=== PATIENT | male | born 1955 | race Caucasian/White ===

== ENCOUNTER 2017-05-02 15:03 | Day surgery (SDC) | payer BC ==
[~2017-05-02] VITALS: Ht 185.4 cm; Wt 100.8 kg
[2017-05-02] VITALS (10 sets, daily range): BP systolic 107–146; BP diastolic 59–84
[~2017-05-02 15:03] MED LIST changes: -ASPI-983 PO; -DAPA10TA PO; -GLYB5TAB6 PO; +HEParin (CATH LAB) 2,000 ML IV ONE; -LISI-552 PO; -METF850T2 PO; -METO-270 PO; -MULT-1029 PO; +NS IV 1000 ML 1,000 ML ONE; -OMEP40CA36 PO; -SIMV40TA4 PO
[2017-05-02] MEDS ORDERED: NS IV 1000 ML 1,000 ML IV SCH (15:30)
[2017-05-02] MEDS ORDERED: MIDAZOLAM 5 MG/5 ML (VERSED) VIAL ONE (15:35)
[2017-05-02] MEDS ORDERED: fentaNYL INJECTION 100 MCG/2 ML AMP ONE (15:35)
[2017-05-02 15:39] LABS: MEAN PLATELET VOLUME 10.7 FL (7.4-10.4); RED BLOOD COUNT 5.24 10^6/uL (4.35-5.85); RED CELL DISTRIBUTION WIDTH 12.8 % (10.0-14.5)
[2017-05-02 15:53] LABS: INR 0.9 (0.8-1.4); PROTHROMBIN TIME PATIENT 12.7 SEC (12.2-14.7)
--- NOTE | 2017-05-02 15:55 | Diagnostic Imaging Report ---
Portable upright radiograph of the chest. INDICATION: Chest pain. FINDINGS: The lungs are clear. The heart size is normal. No effusion or pneumothorax. The mediastinum and flaco appear unremarkable. IMPRESSION: Unremarkable exam. Dictated by: Dictated on workstation # [id number]
[2017-05-02 15:59] LABS: ALANINE AMINOTRANSFERASE 15 U/L (0-55); ALBUMIN 4.5 GM/DL (3.2-4.5); ANION GAP 10 MMOL/L (5-14); ASPARTATE AMINO TRANSFERASE 17 U/L (5-34); BILIRUBIN,TOTAL 0.8 MG/DL (0.1-1.0); BLOOD UREA NITROGEN 18 MG/DL (7-18); BUN/CREATININE RATIO 20; CALCIUM 9.7 MG/DL (8.5-10.1); CARBON DIOXIDE 25 MMOL/L (21-32); CHLORIDE 104 MMOL/L (98-107); CHOLESTEROL 173 MG/DL (< 200); CREATININE SERUM 0.89 MG/DL (0.60-1.30); DIRECT LDL 103 MG/DL (1-129); GFR ESTIMATED > 60; GLUCOSE 86 MG/DL (70-105); POTASSIUM 3.9 MMOL/L (3.6-5.0); SODIUM 139 MMOL/L (135-145); TOTAL PROTEIN 7.5 GM/DL (6.4-8.2); TRIGLYCERIDES 87 MG/DL (<150); VLDL CHOLESTEROL 17 MG/DL (5-40)
[2017-05-02] MEDS ORDERED: GLYB5TAB6 PO (16:08)
[2017-05-02] MEDS ORDERED: DAPA10TA PO (16:08)
[2017-05-02] MEDS ORDERED: LISI-552 PO (16:08)
[2017-05-02] MEDS ORDERED: METF850T2 PO (16:08)
[2017-05-02] MEDS ORDERED: ASPI-983 PO (16:08)
[2017-05-02] MEDS ORDERED: SIMV40TA4 PO (16:08)
[2017-05-02] MEDS ORDERED: MULT-1029 PO (16:08)
[2017-05-02] MEDS ORDERED: OMEP40CA36 PO (16:08)
[2017-05-02] MEDS ORDERED: INFLUENZA TRIvalent 2017-2018 0.5 ML/45 MCG SYR IM ONE (16:15)
[2017-05-02] MEDS ORDERED: meTOprolol 5 MG/5 ML (LOPRESSOR) VIAL ONE (16:27)
--- NOTE | 2017-05-02 16:32 | Cardiac Procedure Note-CS/ASA ---
Pre-Procedure Note Pre-Op Procedure Note H&P Reviewed The H&P was reviewed, patient examined and no changes noted. Date H&P Reviewed: May 02, 2017 Time H&P Reviewed: 16:00 Conscious Sedation Pre-Proced Time Reviewed: 16:00 ASA Class: 3 Airway Mallampati Classification: ([place] appropriate class) I. II. III, IV Lungs Heart ASA score ASA 1: a normal healthy patient ASA 2: a patient with a mild systemic disease (mid diabetes, controlled hypertension, obesity x ASA 3: a patient with a severe systemic disease that limits activity (angina , COPD, prior Myocardial infarction) ASA 4: a patient with an incapacitating disease that is a constant threat to life (CHF, renal failure) ASA 5: a moribund patient not expected to survive 24 hrs. (ruptured aneurysm) ASA 6: a declared brain patient whose organs are being harvested. For emergent operations, add the letter E after the classification Grade 3 Sedation Plan: Analgesia, Amnesia, Plan communicated to team members, Discussed options with patient/fam, Discussed risks with patient/fam Note The patient is an appropriate candidate to undergo the planned procedure, sedation, and anesthesia. The patient immediately re-assessed prior to indication. LORENZA MAHONEY MD May 02, 2017 16:32
--- NOTE | 2017-05-02 16:37 | Cardiac Cath Report ---
Cardiac Cath Report Physician (s)/Insurance Advisor (s) Physician LORENZA MAHONEY MD Pre-Procedure Diagnosis Pre-Procedure Diagnosis: nonsustained ventricular tachycardia Post-Procedure Note Procedure Start Date: May 02, 2017 Procedure Start Time: 16:00 Name of Procedure: left heart catheterization Findings/Procedure Note PROCEDURE NOTE: After explaining the procedure to the patient, all pros and cons were explained, all questions were answered. The patient signed the consent and then she was placed on the cardiac catheterization laboratory. The patient was placed on the cardiac catheterization laboratory. Groin was prepped SL fashion local anesthesia was used. Sheath placed in the artery. Gina right and left catheter were used to access the coronary system. Pigtail was used to access the left ventricular cavity. Left ventriculogram was not done, pressure was measured Aortic arch angiogram was not done At the end of the procedure the sheath was removed. Closure device was used FINDINGS: Hemodynamics LV 108/12, end-diastolic pressure of 12 Aorta 108/65 mean of 79 ANATOMY: Left Main is free of obstructive disease Left Anterior Descending is small, tortuous, no obstructive disease Left Circumflex is free of obstructive disease Right Coronory Artery dominant artery, no obstructive disease LV Gram was not done, pressure was measured CONCLUSION: 1. Mild coronary artery disease nonobstructive disease 2. Normal left ventricular end-diastolic pressure DISCUSSION AND RECOMMENDATION: I will start him on beta blockers and evaluate his tolerance and response Anesthesia Type: Conscious Sedation Estimated blood loss (mL): 10 ml Contrast Amount: 40 ml Total Radiation Dose: 423 mGy Post-Procedure Diagnosis Post-operative diagnosis: Coronary artery disease Ventricular tachycardia Hypertension Hyperlipidemia LORENZA MAHONEY MD May 02, 2017 16:37
[2017-05-02] MEDS ORDERED: PATIENT MAY USE OWN MEDS, ALL PO SCH (16:45)
[2017-05-02] MEDS: NS IV 1000 ML 1,000 ML IV SCH (18:37)
[2017-05-02] MEDS ORDERED: SIMvastatin 40 MG (ZOCOR) TAB PO SCH (21:00)
[2017-05-02] MEDS ORDERED: ASPIRIN E.C. 81 MG (ECOTRIN) TAB PO SCH (21:00)
[2017-05-03 02:00] VITALS: BP 119/70
[2017-05-03] MEDS: NS IV 1000 ML 1,000 ML IV SCH (02:37)
--- OUTSIDE RECORDS SUMMARY | 2017-05-03 04:50 | XMS REPORT ---
Author Author Esperanza Shirley [facility] Address [address] [place], [place] [id number] Care Team Providers Care Chef Concierge Name Role Phone Esperanza Shirley PCP Unavailable Allergies and Adverse Reactions Name Reaction Notes NO KNOWN DRUG ALLERGIES Plan of Treatment Planned Activity Comments Planned Date Planned Time Plan/Goal LIPID PANEL 01/21/2013 12:00 AM GLYCOSYLATED HEMOGLOBIN TEST 01/21/2013 12:00 AM COMPLETE CBC W/AUTO DIFF WBC 12/18/2012 12:00 AM COMPREHEN METABOLIC PANEL 12/18/2012 12:00 AM MICROALBUMIN SEMIQUANT 12/18/2012 12:00 AM LIPID PANEL 07/03/2013 12:00 AM MICROALBUMIN SEMIQUANT 07/03/2013 12:00 AM COMPREHEN METABOLIC PANEL 07/03/2013 12:00 AM GLYCOSYLATED HEMOGLOBIN TEST 07/03/2013 12:00 AM COMPREHEN METABOLIC PANEL 01/22/2014 12:00 AM LIPID PANEL 01/22/2014 12:00 AM GLYCOSYLATED HEMOGLOBIN TEST 01/22/2014 12:00 AM MICROALBUMIN SEMIQUANT 01/22/2014 12:00 AM Medications Active Name Start Date Estimated Completion Date SIG Comments Aspirin Low Dose 81 mg oral tablet,delayed release (DR/EC) take 1 tablet (81 mg) by oral route once daily omeprazole 40 mg oral capsule,delayed release(DR/EC) 08/20/2013 TAKE ONE CAPSULE BY MOUTH EVERY DAY BEFORE A MEAL lisinopril 20 mg oral tablet 09/16/2013 TAKE TWO TABLETS BY MOUTH EVERY DAY simvastatin 20 mg oral tablet 01/13/2014 TAKE ONE TABLET BY MOUTH EVERY DAY IN THE EVENING omeprazole 40 mg oral capsule,delayed release(DR/EC) 02/25/2014 TAKE ONE CAPSULE BY MOUTH EVERY DAY BEFORE A MEAL metformin 850 mg oral tablet 04/07/2014 TAKE ONE TABLET BY MOUTH TWICE DAILY simvastatin 40 mg oral tablet 06/26/2014 TAKE ONE TABLET BY MOUTH EVERY DAY IN THE EVENING lisinopril 20 mg oral tablet 06/30/2014 TAKE TWO TABLETS BY MOUTH EVERY DAY metformin 850 mg oral tablet 07/07/2014 TAKE ONE TABLET BY MOUTH TWICE DAILY glyburide 5 mg oral tablet 07/28/2014 TAKE ONE TABLET BY MOUTH TWICE DAILY omeprazole 40 mg oral capsule,delayed release(DR/EC) 08/26/2014 TAKE ONE CAPSULE BY MOUTH EVERY DAY BEFORE A MEAL lisinopril 20 mg oral tablet 09/22/2014 TAKE TWO TABLETS BY MOUTH EVERY DAY Farxiga 10 mg oral tablet 09/30/2014 09/25/2015 take 1 tablet (10 mg) by oral route once daily in the morning for 30 days simvastatin 40 mg oral tablet 10/07/2014 TAKE ONE TABLET BY MOUTH ONCE DAILY IN THE EVENING omeprazole 40 mg oral capsule,delayed release(DR/EC) 02/23/2015 TAKE ONE CAPSULE BY MOUTH ONCE DAILY BEFORE A MEAL Name Start Date Expiration Date SIG Comments lisinopril 20 mg oral tablet 09/05/2012 12/04/2012 TAKE TWO TABLETS BY MOUTH EVERY DAY metformin 850 mg oral tablet 01/01/2013 12/27/2013 TAKE ONE TABLET BY MOUTH TWICE DAILY simvastatin 20 mg oral tablet 01/01/2013 12/27/2013 TAKE ONE TABLET BY MOUTH EVERY DAY IN THE EVENING omeprazole 40 mg oral capsule,delayed release(DR/EC) 01/01/2013 06/30/2013 take 1 capsule (40 mg) by oral route once daily before a meal for 30 days glyburide 5 mg oral tablet 07/25/2013 07/20/2014 TAKE ONE TABLET BY MOUTH TWICE DAILY Discontinued Name Start Date Discontinued Date SIG Comments simvastatin 40 mg oral tablet 06/10/2010 06/10/2010 take 1 tablet (40 mg) by oral route once daily in the evening History of muscle aches lisinopril 40 mg oral tablet 06/10/2010 07/24/2012 1QD - TAKE ONE TABLET BY MOUTH EVERY DAY TAKING 2 20MG TABS Crestor 40 mg oral tablet 06/10/2010 07/02/2010 take 0.5 tablet by oral route daily Muscle aches Lotrisone 1-0.05 % topical lotion 06/02/2011 07/24/2012 apply to the affected area(s) by topical route 2 times per day in the morning and evening Metrogel 1 % topical gel 10/12/2011 07/24/2012 apply to the affected area(s) by topical route once daily ; rub in gently and completely Invokana 300 mg oral tablet 06/25/2014 08/12/2014 take 1 tablet (300 mg) by oral route once daily before the first meal of the day Anusol-HC 25 mg rectal suppository 11/25/2014 04/21/2015 insert 1 suppository (25 mg) by rectal route 2 times per day as needed Problem List Description Status Onset Diabetes Mellitus, Type II Active Hypertension Active Hyperlipidemia Active 06/02/2011 Hand Eczema Active 06/02/2011 Vital Signs Date Time BP-Sys(mm[Hg] BP-Jolene(mm[Hg]) HR(bpm) RR(rpm) Temp WT HT HC BMI BSA BMI Percentile O2 Sat(%) 04/21/2015 8:21:00 AM 118 mmHg 62 mmHg 63 bpm 20 rpm 97.2 F 229 lbs 73 in 30.21 kg/m2 2.31 m2 99 % 11/05/2014 3:23:00 PM 110 mmHg 60 mmHg 70 bpm 16 rpm 96 F 233 lbs 73 in 30.7403 kg/m 2.3331 m 97 % 09/30/2014 3:48:00 PM 142 mmHg 72 mmHg 68 bpm 16 rpm 97.1 F 233 lbs 73 in 30.74 kg/m2 2.33 m2 97 % 06/25/2014 3:42:00 PM 130 mmHg 67 mmHg 68 bpm 18 rpm 97.1 F 248.5 lbs 73 in 32.7853 kg/m 2.4095 m 99 % 07/25/2013 8:17:00 AM 134 mmHg 78 mmHg 62 bpm 18 rpm 97 F 252 lbs 73 in 33.25 kg/m2 2.43 m2 99 % 04/30/2013 8:17:00 AM 138 mmHg 80 mmHg 58 bpm 16 rpm 98.9 F 252 lbs 73 in 33.2471 kg/m 2.4264 m 99 % 01/01/2013 8:03:00 AM 138 mmHg 70 mmHg 76 bpm 18 rpm 98.4 F 255 lbs 73 in 33.64 kg/m2 2.44 m2 07/24/2012 8:13:00 AM 136 mmHg 70 mmHg 62 bpm 18 rpm 98 F 254 lbs 73 in 33.5109 kg/m 2.436 m 06/02/2011 8:14:00 AM 146 mmHg 70 mmHg 70 bpm 18 rpm 97.8 F 263 lbs 73 in 34.70 kg/m2 2.48 m2 05/03/2011 11:00:00 AM 130 mmHg 78 mmHg 72 bpm 257 lbs 73 in 33.9067 kg/m 2.4503 m 06/10/2010 10:42:00 AM 144 mmHg 80 mmHg 76 bpm 18 rpm 98.1 F 252 lbs Social History Name Description Comments No Alcohol Use Tobacco Never smoker History of Procedures Date Ordered Description Order Status 04/21/2015 9:26 AM URINALYSIS AUTO W/O SCOPE Reviewed 05/03/2011 12:00 AM URINALYSIS AUTO W/O SCOPE Reviewed 05/24/2011 12:00 AM COMPLETE CBC W/AUTO DIFF WBC Reviewed 05/24/2011 12:00 AM COMPREHEN METABOLIC PANEL Reviewed 05/24/2011 12:00 AM LIPID PANEL Reviewed 05/24/2011 12:00 AM GLYCOSYLATED HEMOGLOBIN TEST Reviewed 05/24/2011 12:00 AM MICROALBUMIN SEMIQUANT Reviewed 05/24/2011 12:00 AM Prostate Cancer Screening PSA Reviewed 06/02/2011 12:00 AM METABOLIC PANEL TOTAL CA Reviewed 06/02/2011 12:00 AM LIPID PANEL Reviewed 06/02/2011 12:00 AM GLYCOSYLATED HEMOGLOBIN TEST Reviewed 06/26/2012 12:00 AM COMPLETE CBC W/AUTO DIFF WBC Reviewed 06/26/2012 12:00 AM COMPREHEN METABOLIC PANEL Reviewed 06/26/2012 12:00 AM LIPID PANEL Reviewed 06/26/2012 12:00 AM GLYCOSYLATED HEMOGLOBIN TEST Reviewed 06/26/2012 12:00 AM MICROALBUMIN SEMIQUANT Reviewed 06/26/2012 12:00 AM Prostate Cancer Screening PSA Reviewed 01/21/2013 12:00 AM METABOLIC PANEL TOTAL CA Reviewed 12/18/2012 12:00 AM LIPID PANEL Reviewed 12/18/2012 12:00 AM GLYCOSYLATED HEMOGLOBIN TEST Reviewed 07/03/2013 12:00 AM GLYCOSYLATED HEMOGLOBIN TEST Reviewed 07/03/2013 12:00 AM COMPREHEN METABOLIC PANEL Reviewed 07/03/2013 12:00 AM ASSAY OF TOTAL TESTOSTERONE Reviewed 07/01/2009 12:00 AM COMPLETE CBC W/AUTO DIFF WBC Reviewed 07/01/2009 12:00 AM COMPREHEN METABOLIC PANEL Reviewed 07/01/2009 12:00 AM LIPID PANEL Reviewed 07/01/2009 12:00 AM GLYCOSYLATED HEMOGLOBIN TEST Reviewed 07/01/2009 12:00 AM MICROALBUMIN SEMIQUANT Reviewed 07/03/2013 12:00 AM COMPLETE CBC W/AUTO DIFF WBC Reviewed 07/03/2013 12:00 AM LIPID PANEL Reviewed 07/03/2013 12:00 AM MICROALBUMIN SEMIQUANT Reviewed 07/03/2013 12:00 AM Prostate Cancer Screening PSA Reviewed 04/06/2010 12:00 AM COMPLETE CBC W/AUTO DIFF WBC Reviewed 04/06/2010 12:00 AM COMPREHEN METABOLIC PANEL Reviewed 04/06/2010 12:00 AM LIPID PANEL Reviewed 04/06/2010 12:00 AM GLYCOSYLATED HEMOGLOBIN TEST Reviewed 04/06/2010 12:00 AM MICROALBUMIN SEMIQUANT Reviewed 04/06/2010 12:00 AM Prostate Cancer Screening PSA Reviewed 12/11/2010 12:00 AM METABOLIC PANEL TOTAL CA Reviewed 12/11/2010 12:00 AM LIPID PANEL Reviewed 12/11/2010 12:00 AM GLYCOSYLATED HEMOGLOBIN TEST Reviewed 06/06/2014 12:00 AM COMPLETE CBC W/AUTO DIFF WBC Reviewed 06/06/2014 12:00 AM COMPREHEN METABOLIC PANEL Reviewed 06/06/2014 12:00 AM LIPID PANEL Reviewed 06/06/2014 12:00 AM GLYCOSYLATED HEMOGLOBIN TEST Reviewed 06/06/2014 12:00 AM MICROALBUMIN SEMIQUANT Reviewed 06/06/2014 12:00 AM Prostate Cancer Screening PSA Reviewed 09/16/2014 12:00 AM COMPLETE CBC W/AUTO DIFF WBC Reviewed 09/16/2014 12:00 AM COMPREHEN METABOLIC PANEL Reviewed 09/16/2014 12:00 AM LIPID PANEL Reviewed 09/16/2014 12:00 AM GLYCOSYLATED HEMOGLOBIN TEST Reviewed 09/16/2014 12:00 AM MICROALBUMIN SEMIQUANT Reviewed 09/30/2014 12:00 AM ECHO EXAM OF ABDOMEN Reviewed 11/05/2014 12:00 AM HEPATOBILIARY SYSTEM IMAGING Returned Results Summary Data and Description Results 07/10/2009 8:53 AM INR 1.0 PROTIME 10.20 secs 04/10/2010 10:55 AM TRIGLYCERIDES 128.0 mg/dLCHOLESTEROL 255.0 mg/dLHDL 43.0 mg /dLLDL (CALC) 186.0 mg/dLPSA TOTAL 0.620 ng/mLGLYCOHEMOGLOBIN A1C 7.40 %WBC 5.6 RBC 4.62 HGB 14.0 g/dLHCT 40.40 %MCV 87.0 fLMCH 30.30 pgMCHC 34.70 g/dLRDW CV 12.60 %MPV 10.60 fLPLT 175 %NEUT 52.70 %%LYMP 34.90 %%MONO 8.0 %%EOS 3.90 %% BASO 0.50 %#NEUT 2.95 #LYMP 1.96 #MONO 0.45 #EOS 0.22 #BASO 0.03 GLUCOSE 161.0 mg/dLSODIUM 135.0 mmol/LPOTASSIUM 4.20 mmol/LCHLORIDE 100.0 mmol/LCO2 25.0 mmol/ LBUN 18.0 mg/dLCREATININE 1.10 mg/dLSGOT/AST 21.0 IU/LSGPT/ALT 21.0 IU/LALK PHOS 76.0 IU/LTOTAL PROTEIN 7.20 g/dLALBUMIN 4.20 g/dLTOTAL BILI 0.70 mg/ dLCALCIUM 9.80 mg/dLeGFR >60 mL/min/1.73 m2 04/10/2010 11:00 AM CREAT UR 114.40 mg/dLMICROALBUMIN UR 9.0 ug/mLALB:CREAT RATIO 8 05/27/2011 8:52 AM WBC 6.5 RBC 4.87 HGB 14.80 g/dLHCT 41.10 %MCV 84.0 fLMCH 30.40 pgMCHC 36.0 g/dLRDW CV 12.60 %MPV 10.80 fLPLT 172 %NEUT 53.70 %%LYMP 35.10 %%MONO 6.30 %%EOS 4.10 %%BASO 0.80 %#NEUT 3.50 #LYMP 2.29 #MONO 0.41 #EOS 0.27 #BASO 0.05 GLUCOSE 140.0 mg/dLSODIUM 138.0 mmol/LPOTASSIUM 4.20 mmol/ LCHLORIDE 103.0 mmol/LCO2 25.0 mmol/LBUN 16.0 mg/dLCREATININE 1.0 mg/dLSGOT/AST 22.0 IU/LSGPT/ALT 33.0 IU/LALK PHOS 76.0 IU/LTOTAL PROTEIN 7.20 g/dLALBUMIN 4.30 g/dLTOTAL BILI 0.70 mg/dLCALCIUM 9.70 mg/dLeGFR >60 mL/min/1.73 [id number] 150.0 mg/dLCHOLESTEROL 250.0 mg/dLHDL 37.0 mg/dLLDL (CALC) 183.0 mg/dLCREAT UR 133.70 mg/dLMICROALBUMIN UR 6.0 ug/mLALB:CREAT RATIO 4 PSA TOTAL 0.540 ng/mLGLYCOHEMOGLOBIN A1C 7.20 % 07/02/2012 7:47 AM WBC 7.3 RBC 4.86 HGB 14.80 g/dLHCT 41.60 %MCV 86.0 fLMCH 30.50 pgMCHC 35.60 g/dLRDW CV 12.50 %MPV 10.80 fLPLT 181 %NEUT 58.0 %%LYMP 32.50 %%MONO 6.10 %%EOS 3.0 %%BASO 0.40 %#NEUT 4.21 #LYMP 2.36 #MONO 0.44 #EOS 0.22 #BASO 0.03 GLUCOSE 266.0 mg/dLSODIUM 135.0 mmol/LPOTASSIUM 4.30 mmol/ LCHLORIDE 104.0 mmol/LCO2 22.0 mmol/LBUN 17.0 mg/dLCREATININE 1.10 mg/dLSGOT/ AST 21.0 IU/LSGPT/ALT 33.0 IU/LALK PHOS 93.0 IU/LTOTAL PROTEIN 7.10 g/dLALBUMIN 4.20 g/dLTOTAL BILI 0.50 mg/dLCALCIUM 9.70 mg/dLeGFR 60 TRIGLYCERIDES 170.0 mg/ dLCHOLESTEROL 197.0 mg/dLHDL 36.0 mg/dLLDL (CALC) 127.0 mg/dLGLYCOHEMOGLOBIN A1C 8.90 %CREAT UR 146.80 mg/dLMICROALBUMIN UR 6.0 ug/mLALB:CREAT RATIO 4 PSA TOTAL 0.660 ng/mL 12/24/2012 7:20 AM GLUCOSE 139.0 mg/dLSODIUM 140.0 mmol/LPOTASSIUM 4.20 mmol/ LCHLORIDE 103.0 mmol/LCO2 27.0 mmol/LBUN 13.0 mg/dLCREATININE 1.0 mg/dLCALCIUM 10.20 mg/dLeGFR 60 TRIGLYCERIDES 121.0 mg/dLCHOLESTEROL 175.0 mg/dLHDL 35.0 mg/ dLLDL (CALC) 116.0 mg/dLGLYCOHEMOGLOBIN A1C 7.50 % 07/08/2013 8:25 AM GLUCOSE 204.0 mg/dLSODIUM 135.0 mmol/LPOTASSIUM 4.0 mmol/ LCHLORIDE 100.0 mmol/LCO2 22.0 mmol/LBUN 16.0 mg/dLCREATININE 1.10 mg/dLSGOT/ AST 31.0 IU/LSGPT/ALT 34.0 IU/LALK PHOS 83.0 IU/LTOTAL PROTEIN 7.80 g/dLALBUMIN 4.80 g/dLTOTAL BILI 1.40 mg/dLCALCIUM 10.40 mg/dLeGFR >60 mL/min/1.73 p8ICHTM UR 253.60 mg/dLMICROALBUMIN UR 10.0 ug/mLALB:CREAT RATIO 4 TRIGLYCERIDES 119.0 mg/dLCHOLESTEROL 203.0 mg/dLHDL 43.0 mg/dLLDL (CALC) 136.0 mg/dLPSA TOTAL 0.610 ng/mLTESTOSTERONE 708.0 ng/dLWBC 7.2 RBC 5.21 HGB 16.0 g/dLHCT 45.20 %MCV 87.0 fLMCH 30.70 pgMCHC 35.40 g/dLRDW CV 12.40 %MPV 11.20 fLPLT 232 %NEUT 56.50 %% LYMP 32.0 %%MONO 7.20 %%EOS 3.90 %%BASO 0.40 %#NEUT 4.05 #LYMP 2.30 #MONO 0.52 # EOS 0.28 #BASO 0.03 HGB A1C 8.90 %Est Avg Glucose 208.7 mg/dL 06/09/2014 7:50 AM WBC 8.1 RBC 4.84 HGB 14.80 g/dLHCT 41.30 %MCV 85.0 fLMCH 30.60 pgMCHC 35.80 g/dLRDW CV 12.40 %MPV 11.10 fLPLT 192 %NEUT 62.30 %%LYMP 28.80 %%MONO 5.70 %%EOS 3.0 %%BASO 0.20 %#NEUT 5.06 #LYMP 2.34 #MONO 0.46 #EOS 0.24 #BASO 0.02 GLUCOSE 254.0 mg/dLSODIUM 135.0 mmol/LPOTASSIUM 4.40 mmol/ LCHLORIDE 101.0 mmol/LCO2 25.0 mmol/LBUN 14.0 mg/dLCREATININE 1.10 mg/dLSGOT/ AST 24.0 IU/LSGPT/ALT 30.0 IU/LALK PHOS 89.0 IU/LTOTAL PROTEIN 7.20 g/dLALBUMIN 4.40 g/dLTOTAL BILI 0.80 mg/dLCALCIUM 9.90 mg/dLeGFR 60 TRIGLYCERIDES 119.0 mg/ dLCHOLESTEROL 201.0 mg/dLHDL 42.0 mg/dLLDL (CALC) 135.0 mg/dLHGB A1C 9.90 %Est Avg Glucose 237.4 mg/dLPSA TOTAL 0.60 ng/mLMICROALBUMIN UR 17.0 ug/mL 09/22/2014 8:23 AM HGB A1C 7.40 %Est Avg Glucose 165.7 mg/dLTRIGLYCERIDES 93.0 mg/dLCHOLESTEROL 162.0 mg/dLHDL 41.0 mg/dLLDL (CALC) 102.0 mg/dLGLUCOSE 137.0 mg /dLSODIUM 139.0 mmol/LPOTASSIUM 4.50 mmol/LCHLORIDE 102.0 mmol/LCO2 23.0 mmol/ LBUN 19.0 mg/dLCREATININE 1.0 mg/dLSGOT/AST 20.0 IU/LSGPT/ALT 19.0 IU/LALK PHOS 64.0 IU/LTOTAL PROTEIN 7.30 g/dLALBUMIN 4.50 g/dLTOTAL BILI 0.80 mg/dLCALCIUM 10.30 mg/dLeGFR >60 mL/min/1.73 [id number] UR 5.0 ug/mLWBC 6.6 RBC 5.10 HGB 15.30 g/dLHCT 45.20 %MCV 89.0 fLMCH 30.0 pgMCHC 33.80 g/dLRDW CV 12.60 %MPV 10.80 fLPLT 178 %NEUT 61.70 %%LYMP 28.20 %%MONO 6.70 %%EOS 3.20 %%BASO 0.20 %# NEUT 4.05 #LYMP 1.85 #MONO 0.44 #EOS 0.21 #BASO 0.01 04/21/2015 9:26 AM Clarity Ur clear Color Ur lt yellow Glucose Ur-sCnc >=1000 Bilirub Ur Ql Strip negative Ketones Ur Ql Strip negative Sp Gr Ur Qn 1.020 Hgb Ur Ql Strip negative pH Ur-LsCnc 5.5 Prot Ur Ql Strip negative Urobilinogen Ur- mCnc 1.0 Nitrite Ur Ql Strip negative WBC Est Ur Ql Strip negative History Of Immunizations Not available. History of Past Illness Name Date of Onset Comments Diabetes Mellitus, Type II Jul 01 2009 11:48AM Diabetes Mellitus, Type II Hypertension Hyperlipidemia 06/02/2011 Hand Eczema 06/02/2011 Diabetes Mellitus, Type II Apr 06 2010 12:28PM Screening For Prostate Cancer Apr 06 2010 12:28PM Diabetes Mellitus, Type II, Uncontrolled Jun 10 2010 10:43AM General Medical Exam, Adult May 03 2011 10:58AM Diabetes Mellitus, Type II May 24 2011 12:03PM Screening For Prostate Cancer May 24 2011 12:03PM Diabetes Mellitus, Type II Jun 02 2011 8:09AM Essential Hypertension Jun 02 2011 8:09AM Hyperlipidemia Jun 02 2011 8:09AM Hand Eczema Jun 02 2011 8:09AM Diabetes Mellitus, Type II Jun 26 2012 12:29PM Screening For Prostate Cancer Jun 26 2012 12:29PM Diabetes Mellitus, Type II Jul 24 2012 8:15AM Essential Hypertension Jul 24 2012 8:15AM Hyperlipidemia Jul 24 2012 8:15AM Hand Eczema Jul 24 2012 8:15AM Diabetes Mellitus, Type II Dec 18 2012 11:48AM Diabetes Mellitus, Type II Jan 01 2013 8:05AM Essential Hypertension Jan 01 2013 8:05AM Hyperlipidemia Jan 01 2013 8:05AM Decreased libido Jan 01 2013 8:05AM DOT Apr 30 2013 8:24AM Diabetes Mellitus, Type II Jul 03 2013 9:42AM Screening For Prostate Cancer Jul 03 2013 9:42AM Diabetes Mellitus, Type II Jul 25 2013 8:20AM Essential Hypertension Jul 25 2013 8:20AM Hyperlipidemia Jul 25 2013 8:20AM Diabetes Mellitus, Type II Jun 06 2014 1:45PM Screening For Prostate Cancer Jun 06 2014 1:45PM Anemia Jun 06 2014 1:45PM Diabetes Mellitus, Type II Jun 25 2014 3:49PM Essential Hypertension Jun 25 2014 3:49PM Hyperlipidemia Jun 25 2014 3:49PM Actinic Keratosis Jun 30 2014 1:07PM Hyperlipidemia Sep 16 2014 12:41PM Diabetes Mellitus, Type II Sep 16 2014 12:41PM Hypertension Sep 16 2014 12:41PM Diabetes Mellitus, Type II Sep 16 2014 12:41PM Anemia Sep 16 2014 12:41PM Screening For Prostate Cancer Sep 16 2014 12:41PM Right sided abdominal pain Sep 30 2014 10:36AM Diabetes Mellitus, Type II Sep 30 2014 3:49PM Essential Hypertension Sep 30 2014 3:49PM Hyperlipidemia Sep 30 2014 3:49PM Right upper quadrant pain Sep 30 2014 3:49PM Abdominal pain, RUQ Nov 05 2014 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 Payers Insurance Name Company Name Plan Name Plan Number Policy Number Policy Group Number Start Date Bcbs Bcbs [facility] [id number] Sunday, 2011 [employer] [id number] N/A [facility] [id number] Tuesday, 2012 History of Encounters Visit Date Visit Type Provider 04/21/2015 Office visit Esperanza Shirley P[employer] SERVICE TECHNICIAN 11/05/2014 Office visit Kwasi Neil MD 09/30/2014 Office visit Jareth Nieves DO 06/25/2014 Office visit Jareth Nieves DO 07/25/2013 Office visit Jareth Nieves DO 04/30/2013 Office visit Taco Renee POULTRY FIELD SERVICE TECHNICIAN 01/01/2013 Office visit Jareth Nieves DO 07/24/2012 Office visit Jareth Nieves DO 06/02/2011 Office visit Jareth Nieves DO 05/03/2011 Office visit Kwasi Loomis PA-C 06/10/2010 Office visit Jareth Nieves DO
--- OUTSIDE RECORDS SUMMARY | 2017-05-03 04:51 | XMS REPORT ---
Author Author Esperanza Shirley [facility] Address [address] [place], [place] [id number] Care Team Providers Care Literary Writer Name Role Phone Esperanza Shirley PCP Unavailable Allergies and Adverse Reactions Name Reaction Notes NO KNOWN DRUG ALLERGIES Plan of Treatment Planned Activity Comments Planned Date Planned Time Plan/Goal VITAMIN B-12 11/04/2015 12:00 AM MICROALBUMIN QUANTITATIVE 11/04/2015 12:00 AM LIPID PANEL 01/21/2013 12:00 AM GLYCOSYLATED HEMOGLOBIN [...] TWO TABLETS BY MOUTH EVERY DAY simvastatin 40 mg oral tablet 10/07/2014 TAKE ONE TABLET BY MOUTH ONCE DAILY IN THE EVENING omeprazole 40 mg oral capsule,delayed release(DR/EC) 02/23/2015 TAKE ONE CAPSULE BY MOUTH ONCE DAILY BEFORE A MEAL metformin 850 mg oral tablet 07/06/2015 TAKE ONE TABLET BY MOUTH TWICE DAILY omeprazole 40 mg oral capsule,delayed release(DR/EC) 07/28/2015 TAKE ONE CAPSULE BY MOUTH ONCE DAILY BEFORE A MEAL glyburide 5 mg oral tablet 07/28/2015 TAKE ONE TABLET BY MOUTH TWICE DAILY omeprazole 40 mg oral capsule,delayed release(DR/EC) 09/23/2015 TAKE ONE CAPSULE BY MOUTH ONCE DAILY BEFORE A MEAL lisinopril 20 mg oral tablet 09/23/2015 TAKE TWO TABLETS BY MOUTH ONCE DAILY Farxiga 10 mg oral tablet 09/28/2015 TAKE ONE TABLET BY MOUTH ONCE DAILY IN THE MORNING metformin 850 mg oral tablet 10/12/2015 TAKE ONE TABLET BY MOUTH TWICE DAILY simvastatin 40 mg oral tablet 10/12/2015 TAKE ONE TABLET BY MOUTH ONCE DAILY IN THE EVENING glyburide 5 mg oral tablet 11/02/2015 TAKE ONE TABLET BY MOUTH TWICE DAILY Name Start Date Expiration Date SIG Comments [...] TAKE ONE TABLET BY MOUTH TWICE DAILY Farxiga 10 mg oral tablet 09/30/2014 09/25/2015 take 1 tablet (10 mg) by oral route once daily in the morning for 30 days Discontinued Name Start Date Discontinued Date SIG [...] mg /dLLDL (CALC) 186.0 mg/dLPSA TOTAL 0.620 ng/mLWBC 5.6 RBC 4.62 HGB 14.0 g/dLHCT 40.40 %MCV 87.0 fLMCH 30.30 pgMCHC 34.70 g/dLRDW CV 12.60 %MPV 10.60 fLPLT 175 % NEUT 52.70 %%LYMP 34.90 %%MONO 8.0 %%EOS 3.90 %%BASO 0.50 %#NEUT 2.95 #LYMP 1.96 #MONO 0.45 #EOS 0.22 #BASO 0.03 GLUCOSE 161.0 mg/dLSODIUM 135.0 mmol/ LPOTASSIUM 4.20 mmol/LCHLORIDE 100.0 mmol/LCO2 25.0 mmol/LBUN 18.0 mg/ dLCREATININE 1.10 mg/dLSGOT/AST 21.0 IU/LSGPT/ALT 21.0 IU/LALK PHOS 76.0 IU/ LTOTAL PROTEIN 7.20 g/dLALBUMIN 4.20 g/dLTOTAL BILI 0.70 mg/dLCALCIUM 9.80 mg/ dLeGFR >60 mL/min/1.73 m2 04/10/2010 11:00 AM CREAT [...] BILI 0.70 mg/dLCALCIUM 9.70 mg/dLeGFR >60 mL/min/1.73 [id number] 150.0 mg/dLCHOLESTEROL 250.0 mg/dLHDL 37.0 mg/dLLDL (CALC) 183.0 mg/dLCREAT UR 133.70 mg/dLMICROALBUMIN UR 6.0 ug/mLALB:CREAT RATIO 4 PSA TOTAL 0.540 ng/mL 07/02/2012 7:47 AM WBC 7.3 RBC 4.86 [...] dLCHOLESTEROL 197.0 mg/dLHDL 36.0 mg/dLLDL (CALC) 127.0 mg/dLCREAT UR 146.80 mg/ dLMICROALBUMIN UR 6.0 ug/mLALB:CREAT RATIO 4 PSA TOTAL 0.660 ng/mL 12/24/2012 7:20 AM GLUCOSE 139.0 mg/dLSODIUM 140.0 mmol/LPOTASSIUM 4.20 mmol/ LCHLORIDE 103.0 mmol/LCO2 27.0 mmol/LBUN 13.0 mg/dLCREATININE 1.0 mg/dLCALCIUM 10.20 mg/dLeGFR 60 TRIGLYCERIDES 121.0 mg/dLCHOLESTEROL 175.0 mg/dLHDL 35.0 mg/ dLLDL (CALC) 116.0 mg/dL 07/08/2013 8:25 AM GLUCOSE 204.0 mg/dLSODIUM 135.0 mmol/LPOTASSIUM 4.0 mmol/ LCHLORIDE 100.0 mmol/LCO2 22.0 mmol/LBUN 16.0 mg/dLCREATININE 1.10 mg/dLSGOT/ AST 31.0 IU/LSGPT/ALT 34.0 IU/LALK PHOS 83.0 IU/LTOTAL PROTEIN 7.80 g/dLALBUMIN 4.80 g/dLTOTAL BILI 1.40 mg/dLCALCIUM 10.40 mg/dLeGFR >60 mL/min/1.73 [id number] 253.60 mg/dLMICROALBUMIN UR 10.0 ug/mLALB:CREAT RATIO [...] BILI 0.80 mg/dLCALCIUM 10.30 mg/dLeGFR >60 mL/min/1.73 [id number] UR 5.0 ug/mLWBC 6.6 RBC 5.10 HGB [...] 2014 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 Hyperlipidemia Nov 04 2015 4:49PM Diabetes Mellitus, Type II Nov 04 2015 4:49PM Hypertension Nov 04 2015 4:49PM Anemia Nov 04 2015 4:49PM Payers Insurance Name Company Name Plan Name Plan Number Policy Number Policy Group Number Start Date BCBS Bcbs [facility] [id number] Sunday, 2011 [employer] [id number] N/A [facility] [id number] Tuesday, 2012 History of Encounters Visit Date Visit Type Provider 04/21/2015 Office visit Esperanza Shirley SURVEILLANCE AGENT 11/05/2014 Office visit Kwasi Neil MD 09/30/2014 Office visit Jareth Nieves DO 06/25/2014 Office visit 06/25/2014 Office visit Jareth Nieves DO 07/25/2013 Office visit Jareth Nieves DO 04/30/2013 Office visit Taco Renee SURVEILLANCE AGENT 01/01/2013 Office visit Jareth Nieves DO 07/24/2012 Office visit Jareth Nieves DO 06/02/2011 Office visit Jareth Nieves DO 05/03/2011 Office visit Kwasi Loomis PA-C 06/10/2010 Office visit Jareth Nieves DO
--- OUTSIDE RECORDS SUMMARY | 2017-05-03 04:52 | XMS REPORT ---
Author Author Taco Renee [facility] Address [address] [place], [place] [id number] Care Team Providers Care Cryogenics Engineer Name Role Phone Taco Renee PCP Jareth Nieves PreferredProvider Unavailable Allergies and Adverse Reactions Name Reaction Notes NO KNOWN DRUG ALLERGIES Plan of Treatment Planned Activity Comments Planned Date Planned Time Plan/Goal CBC with Auto 03/14/2017 12:00 AM Comprehensive metabolic panel 03/14/2017 12:00 AM Lipid Profile 03/14/2017 12:00 AM Hemoglobin A1c 03/14/2017 12:00 AM VITAMIN B12 03/14/2017 12:00 AM MICROALBUMIN UR RANDOM 03/14/2017 12:00 AM Medications Active Name Start Date [...] EVENING omeprazole 40 mg oral capsule,delayed release(DR/EC) 12/21/2015 TAKE ONE CAPSULE BY MOUTH ONCE DAILY BEFORE A MEAL Farxiga 10 mg oral tablet 12/29/2015 TAKE ONE TABLET BY MOUTH ONCE DAILY IN THE MORNING metformin 850 mg oral tablet 01/11/2016 TAKE ONE TABLET BY MOUTH TWICE DAILY glyburide 5 mg oral tablet 01/12/2016 take 1 tablet (5 mg) by oral route once daily before supper simvastatin 40 mg oral tablet 01/19/2016 TAKE ONE TABLET BY MOUTH ONCE DAILY IN THE EVENING omeprazole 40 mg oral capsule,delayed release(DR/EC) 01/26/2016 TAKE ONE CAPSULE BY MOUTH ONCE DAILY BEFORE A MEAL naproxen 500 mg oral tablet 01/27/2016 take 1 tablet (500 mg) by oral route 3 times per day with food Farxiga 10 mg oral tablet 02/08/2016 TAKE ONE TABLET BY MOUTH ONCE DAILY IN THE MORNING omeprazole 40 mg oral capsule,delayed release(DR/EC) 02/29/2016 TAKE ONE CAPSULE BY MOUTH ONCE DAILY BEFORE A MEAL glyburide 5 mg oral tablet 03/08/2016 TAKE ONE TABLET BY MOUTH TWICE DAILY lisinopril 20 mg oral tablet 07/05/2016 TAKE TWO TABLETS BY MOUTH ONCE DAILY omeprazole 40 mg oral capsule,delayed release(DR/EC) 08/30/2016 TAKE ONE CAPSULE BY MOUTH ONCE DAILY BEFORE A MEAL lisinopril 20 mg oral tablet 01/09/2017 TAKE TWO TABLETS BY MOUTH ONCE DAILY simvastatin 40 mg oral tablet 02/20/2017 TAKE ONE TABLET BY MOUTH ONCE DAILY IN THE EVENING Farxiga 10 mg oral tablet 03/06/2017 TAKE ONE TABLET BY MOUTH ONCE DAILY IN THE MORNING omeprazole 40 mg oral capsule,delayed release(DR/EC) 03/06/2017 TAKE ONE CAPSULE BY MOUTH ONCE DAILY BEFORE MEAL(S) Name Start Date Expiration Date SIG Comments metformin 850 mg oral tablet 01/01/2013 12/27/2013 TAKE ONE TABLET BY MOUTH TWICE DAILY simvastatin 20 mg oral tablet 01/01/2013 12/27/2013 TAKE ONE TABLET BY MOUTH EVERY DAY IN THE EVENING omeprazole 40 mg oral capsule,delayed release(DR/EC) 01/01/2013 06/30/2013 take 1 capsule (40 mg) by oral route once daily before a meal for 30 days Farxiga 10 mg oral tablet 09/30/2014 09/25/2015 take 1 tablet (10 mg) by oral route once daily in the morning for 30 days Zorvolex 35 mg oral capsule 01/12/2016 take 1 capsule (35 mg) by oral route 3 times per day as needed with food Farxiga 10 mg oral tablet 02/14/2017 02/24/2017 TAKE ONE TABLET BY MOUTH ONCE DAILY IN THE MORNING for 10 days glyburide 5 mg oral tablet 02/14/2017 02/24/2017 TAKE ONE TABLET BY MOUTH TWICE DAILY for 10 days metformin 850 mg oral tablet 02/14/2017 03/06/2017 TAKE ONE TABLET BY MOUTH TWICE DAILY for 10 days lisinopril 20 mg oral tablet 02/14/2017 02/24/2017 TAKE TWO TABLETS BY MOUTH EVERY DAY for 10 days Discontinued Name Start Date Discontinued Date [...] HC BMI BSA BMI Percentile O2 Sat(%) 04/19/2016 9:58:00 AM 136 mmHg 80 mmHg 58 bpm 18 rpm 96.8 F 228 lbs 73 in 30.08 kg/m2 2.31 m2 99 % 02/23/2016 8:05:00 AM 128 mmHg 72 mmHg 65 bpm 16 rpm 98.3 F 230 lbs 73 in 30.3445 kg/m 2.3181 m 99 % 01/27/2016 8:08:00 AM 128 mmHg 76 mmHg 75 bpm 17 rpm 97.5 F 323 lbs 73 in 42.61 kg/m2 2.75 m2 98 % 01/12/2016 3:12:00 PM 132 mmHg 76 mmHg 80 bpm 20 rpm 98.2 F 232 lbs 73 in 30.6084 kg/m 2.3281 m 98 % 01/12/2016 8:14:00 AM 136 mmHg 78 mmHg 60 bpm 18 rpm 98.4 F 232 lbs 73 in 30.61 kg/m2 2.33 m2 98 % 04/21/2015 8:21:00 AM 118 mmHg 62 mmHg 63 bpm 20 rpm 97.2 F 229 lbs 73 in 30.2126 kg/m 2.313 m 99 % 11/05/2014 3:23:00 PM 110 mmHg 60 mmHg 70 bpm 16 rpm 96 F 233 lbs 73 in 30.74 kg/m2 2.33 m2 97 % 09/30/2014 3:48:00 PM 142 mmHg 72 mmHg 68 bpm 16 rpm 97.1 F 233 lbs 73 in 30.7403 kg/m 2.3331 m 97 % 06/25/2014 3:42:00 PM 130 mmHg 67 mmHg 68 bpm 18 rpm 97.1 F 248.5 lbs 73 in 32.79 kg/m2 2.41 m2 99 % 07/25/2013 8:17:00 AM 134 mmHg 78 mmHg 62 bpm 18 rpm 97 F 252 lbs 73 in 33.2471 kg/m 2.4264 m 99 % 04/30/2013 8:17:00 AM 138 mmHg 80 mmHg 58 bpm 16 rpm 98.9 F 252 lbs 73 in 33.25 kg/m2 2.43 m2 99 % 01/01/2013 8:03:00 AM 138 mmHg 70 mmHg 76 bpm 18 rpm 98.4 F 255 lbs 73 in 33.6428 kg/m 2.4408 m 07/24/2012 8:13:00 AM 136 mmHg 70 mmHg 62 bpm 18 rpm 98 F 254 lbs 73 in 33.51 kg/m2 2.44 m2 06/02/2011 8:14:00 AM 146 mmHg 70 mmHg 70 bpm 18 rpm 97.8 F 263 lbs 73 in 34.6983 kg/m 2.4788 m 05/03/2011 11:00:00 AM 130 mmHg 78 mmHg 72 bpm 257 lbs 73 in 33.91 kg/m2 2.45 m2 06/10/2010 10:42:00 AM 144 mmHg 80 mmHg [...] 06/02/2011 12:00 AM GLYCOSYLATED HEMOGLOBIN TEST Reviewed 11/04/2015 12:00 AM VITAMIN B-12 Reviewed 11/04/2015 12:00 AM ALBUMIN URINE MICROALBUMIN QUANTIATIVE Reviewed 03/11/2016 12:00 AM Consult/Referral Reviewed 04/30/2016 12:00 AM DOT Physical w UA Reviewed 06/26/2012 12:00 AM COMPLETE CBC W/AUTO DIFF WBC Reviewed 06/26/2012 12:00 AM COMPREHEN METABOLIC PANEL Reviewed 06/26/2012 12:00 AM LIPID PANEL Reviewed 06/26/2012 12:00 AM GLYCOSYLATED HEMOGLOBIN TEST Reviewed 06/26/2012 12:00 AM MICROALBUMIN SEMIQUANT Reviewed 06/26/2012 12:00 AM Prostate Cancer Screening PSA Reviewed 01/21/2013 12:00 AM METABOLIC PANEL TOTAL CA Reviewed 01/21/2013 12:00 AM LIPID PANEL Reviewed 12/18/2012 12:00 AM COMPLETE CBC W/AUTO DIFF WBC Reviewed 12/18/2012 12:00 AM COMPREHEN METABOLIC PANEL Reviewed 12/18/2012 12:00 AM LIPID PANEL Reviewed 12/18/2012 12:00 AM GLYCOSYLATED HEMOGLOBIN TEST Reviewed 12/18/2012 12:00 AM MICROALBUMIN SEMIQUANT Reviewed 07/03/2013 12:00 AM LIPID PANEL Reviewed 07/03/2013 12:00 AM GLYCOSYLATED HEMOGLOBIN TEST Reviewed 07/03/2013 12:00 AM COMPREHEN METABOLIC PANEL Reviewed 07/03/2013 12:00 AM MICROALBUMIN SEMIQUANT Reviewed 07/03/2013 12:00 AM ASSAY OF TOTAL TESTOSTERONE Reviewed 07/03/2013 12:00 AM Prostate Cancer Screening PSA Reviewed 07/01/2009 12:00 AM COMPLETE CBC W/AUTO DIFF WBC Reviewed 07/01/2009 12:00 AM COMPREHEN METABOLIC PANEL Reviewed 07/01/2009 12:00 AM LIPID PANEL Reviewed 07/01/2009 12:00 AM GLYCOSYLATED HEMOGLOBIN TEST Reviewed 07/01/2009 12:00 AM MICROALBUMIN SEMIQUANT Reviewed 07/03/2013 12:00 AM COMPLETE CBC W/AUTO DIFF WBC Reviewed 07/03/2013 12:00 AM COMPREHEN METABOLIC PANEL Reviewed 07/03/2013 12:00 AM LIPID PANEL Reviewed 07/03/2013 12:00 AM GLYCOSYLATED HEMOGLOBIN TEST Reviewed 07/03/2013 12:00 AM MICROALBUMIN SEMIQUANT Reviewed [...] 12:00 AM Prostate Cancer Screening PSA Reviewed 06/30/2014 12:00 AM DESTRUCT PREMALG LESION Reviewed 09/16/2014 12:00 AM COMPLETE CBC W/AUTO DIFF WBC Reviewed 09/16/2014 12:00 AM COMPREHEN METABOLIC PANEL Reviewed 09/16/2014 12:00 AM LIPID PANEL Reviewed 09/16/2014 12:00 AM GLYCOSYLATED HEMOGLOBIN TEST Reviewed 09/16/2014 12:00 AM MICROALBUMIN SEMIQUANT Reviewed 09/30/2014 12:00 AM ECHO EXAM OF ABDOMEN Reviewed 11/05/2014 12:00 AM HEPATOBILIARY SYSTEM IMAGING Reviewed Results Summary Date and Description Results 04/10/2010 10:55 AM TRIGLYCERIDES 128.0 mg/dLCHOLESTEROL 255.0 mg/dLHDL 43.0 mg /dLTOT CHOL/HDL 5.9 LDL (CALC) 186.0 mg/dLPSA TOTAL 0.620 ng/mLWBC 5.6 RBC 4.62 HGB 14.0 g/dLHCT 40.40 %MCV 87.0 fLMCH 30.30 pgMCHC 34.70 g/dLRDW SD 41 RDW CV 12.60 %MPV 10.60 fLPLT 175 NRBC# 0.00 NRBC% 0.0 %NEUT 52.70 %%LYMP 34.90 %%MONO 8.0 %%EOS 3.90 %%BASO 0.50 %#NEUT 2.95 #LYMP 1.96 #MONO 0.45 #EOS 0.22 #BASO 0.03 MANUAL DIFF NOT IND GLUCOSE 161.0 mg/dLSODIUM 135.0 mmol/LPOTASSIUM 4.20 mmol/LCHLORIDE 100.0 mmol/LCO2 25.0 mmol/LBUN 18.0 mg/dLCREATININE 1.10 mg/ dLSGOT/AST 21.0 IU/LSGPT/ALT 21.0 IU/LALK PHOS 76.0 IU/LTOTAL PROTEIN 7.20 g/ dLALBUMIN 4.20 g/dLTOTAL BILI 0.70 mg/dLCALCIUM 9.80 mg/dLAGE 55 GFR NonAA 69 GFR AA 84 eGFR >60 mL/min/1.73 m2eGFR AA* >60 04/10/2010 11:00 AM CREAT UR 114.40 mg/dLMICROALBUMIN UR 9.0 ug/mLALB:CREAT RATIO 8 05/27/2011 8:52 AM WBC 6.5 RBC 4.87 HGB 14.80 g/dLHCT 41.10 %MCV 84.0 fLMCH 30.40 pgMCHC 36.0 g/dLRDW SD 39 RDW CV 12.60 %MPV 10.80 fLPLT 172 NRBC# 0.00 NRBC% 0.0 %NEUT 53.70 %%LYMP 35.10 %%MONO 6.30 %%EOS 4.10 %%BASO 0.80 %#NEUT 3.50 #LYMP 2.29 #MONO 0.41 #EOS 0.27 #BASO 0.05 MANUAL DIFF NOT IND GLUCOSE 140.0 mg/dLSODIUM 138.0 mmol/LPOTASSIUM 4.20 mmol/LCHLORIDE 103.0 mmol/LCO2 25.0 mmol/LBUN 16.0 mg/dLCREATININE 1.0 mg/dLSGOT/AST 22.0 IU/LSGPT/ALT 33.0 IU/ LALK PHOS 76.0 IU/LTOTAL PROTEIN 7.20 g/dLALBUMIN 4.30 g/dLTOTAL BILI 0.70 mg/ dLCALCIUM 9.70 mg/dLAGE 56 GFR NonAA 77 GFR AA 93 eGFR >60 mL/min/1.73 m2eGFR AA * >60 TRIGLYCERIDES 150.0 mg/dLCHOLESTEROL 250.0 mg/dLHDL 37.0 mg/dLTOT CHOL/ HDL 6.8 LDL (CALC) 183.0 mg/dLCREAT UR 133.70 mg/dLMICROALBUMIN UR 6.0 ug/mLALB: CREAT RATIO 4 PSA TOTAL 0.540 ng/mLGLYCOHEMOGLOBIN A1C 7.20 % 07/02/2012 7:47 AM WBC 7.3 RBC 4.86 HGB 14.80 g/dLHCT 41.60 %MCV 86.0 fLMCH 30.50 pgMCHC 35.60 g/dLRDW SD 39 RDW CV 12.50 %MPV 10.80 fLPLT 181 NRBC# 0.00 NRBC% 0.0 %NEUT 58.0 %%LYMP 32.50 %%MONO 6.10 %%EOS 3.0 %%BASO 0.40 %#NEUT 4.21 #LYMP 2.36 #MONO 0.44 #EOS 0.22 #BASO 0.03 MANUAL DIFF NOT IND GLUCOSE 266.0 mg/ dLSODIUM 135.0 mmol/LPOTASSIUM 4.30 mmol/LCHLORIDE 104.0 mmol/LCO2 22.0 mmol/ LBUN 17.0 mg/dLCREATININE 1.10 mg/dLSGOT/AST 21.0 IU/LSGPT/ALT 33.0 IU/LALK PHOS 93.0 IU/LTOTAL PROTEIN 7.10 g/dLALBUMIN 4.20 g/dLTOTAL BILI 0.50 mg/ dLCALCIUM 9.70 mg/dLAGE 57 GFR NonAA 69 GFR AA 84 eGFR 60 eGFR AA* 60 TRIGLYCERIDES 170.0 mg/dLCHOLESTEROL 197.0 mg/dLHDL 36.0 mg/dLTOT CHOL/HDL 5.5 LDL (CALC) 127.0 mg/dLGLYCOHEMOGLOBIN A1C 8.90 %CREAT UR 146.80 mg/ dLMICROALBUMIN UR 6.0 ug/mLALB:CREAT RATIO 4 PSA TOTAL 0.660 ng/mL 12/24/2012 7:20 AM GLUCOSE 139.0 mg/dLSODIUM 140.0 mmol/LPOTASSIUM 4.20 mmol/ LCHLORIDE 103.0 mmol/LCO2 27.0 mmol/LBUN 13.0 mg/dLCREATININE 1.0 mg/dLCALCIUM 10.20 mg/dLAGE 57 GFR NonAA 77 GFR AA 93 eGFR 60 eGFR AA* 60 TRIGLYCERIDES 121.0 mg/dLCHOLESTEROL 175.0 mg/dLHDL 35.0 mg/dLTOT CHOL/HDL 5.0 LDL (CALC) 116.0 mg/dLGLYCOHEMOGLOBIN A1C 7.50 % 07/08/2013 8:25 AM GLUCOSE 204.0 mg/dLSODIUM 135.0 mmol/LPOTASSIUM 4.0 mmol/ LCHLORIDE 100.0 mmol/LCO2 22.0 mmol/LBUN 16.0 mg/dLCREATININE 1.10 mg/dLSGOT/ AST 31.0 IU/LSGPT/ALT 34.0 IU/LALK PHOS 83.0 IU/LTOTAL PROTEIN 7.80 g/dLALBUMIN 4.80 g/dLTOTAL BILI 1.40 mg/dLCALCIUM 10.40 mg/dLAGE 58 GFR NonAA 69 GFR AA 84 eGFR >60 mL/min/1.73 m2eGFR AA* >60 CREAT UR 253.60 mg/dLMICROALBUMIN UR 10.0 ug /mLALB:CREAT RATIO 4 TRIGLYCERIDES 119.0 mg/dLCHOLESTEROL 203.0 mg/dLHDL 43.0 mg /dLTOT CHOL/HDL 4.7 LDL (CALC) 136.0 mg/dLPSA TOTAL 0.610 ng/mLTESTOSTERONE 708.0 ng/dLWBC 7.2 RBC 5.21 HGB 16.0 g/dLHCT 45.20 %MCV 87.0 fLMCH 30.70 pgMCHC 35.40 g/dLRDW SD 39 RDW CV 12.40 %MPV 11.20 fLPLT 232 NRBC# 0.00 NRBC% 0.0 % NEUT 56.50 %%LYMP 32.0 %%MONO 7.20 %%EOS 3.90 %%BASO 0.40 %#NEUT 4.05 #LYMP 2.30 #MONO 0.52 #EOS 0.28 #BASO 0.03 MANUAL DIFF NOT IND HGB A1C 8.90 %Est Avg Glucose 208.7 mg/dL 06/09/2014 7:50 AM WBC 8.1 RBC 4.84 HGB 14.80 g/dLHCT 41.30 %MCV 85.0 fLMCH 30.60 pgMCHC 35.80 g/dLRDW SD 38 RDW CV 12.40 %MPV 11.10 fLPLT 192 NRBC# 0.00 NRBC% 0.0 %NEUT 62.30 %%LYMP 28.80 %%MONO 5.70 %%EOS 3.0 %%BASO 0.20 %#NEUT 5.06 #LYMP 2.34 #MONO 0.46 #EOS 0.24 #BASO 0.02 MANUAL DIFF NOT IND GLUCOSE 254.0 mg/dLSODIUM 135.0 mmol/LPOTASSIUM 4.40 mmol/LCHLORIDE 101.0 mmol/LCO2 25.0 mmol/LBUN 14.0 mg/dLCREATININE 1.10 mg/dLSGOT/AST 24.0 IU/LSGPT/ALT 30.0 IU /LALK PHOS 89.0 IU/LTOTAL PROTEIN 7.20 g/dLALBUMIN 4.40 g/dLTOTAL BILI 0.80 mg/ dLCALCIUM 9.90 mg/dLAGE 59 GFR NonAA 68 GFR AA 82 eGFR 60 eGFR AA* 60 TRIGLYCERIDES 119.0 mg/dLCHOLESTEROL 201.0 mg/dLHDL 42.0 mg/dLTOT CHOL/HDL 4.8 LDL (CALC) 135.0 mg/dLHGB A1C 9.90 %Est Avg Glucose 237.4 mg/dLPSA TOTAL 0.60 ng /mLMICROALBUMIN UR 17.0 ug/mL 09/22/2014 8:23 AM HGB A1C 7.40 %Est Avg Glucose 165.7 mg/dLTRIGLYCERIDES 93.0 mg/dLCHOLESTEROL 162.0 mg/dLHDL 41.0 mg/dLTOT CHOL/HDL 4.0 LDL (CALC) 102.0 mg/ dLGLUCOSE 137.0 mg/dLSODIUM 139.0 mmol/LPOTASSIUM 4.50 mmol/LCHLORIDE 102.0 mmol /LCO2 23.0 mmol/LBUN 19.0 mg/dLCREATININE 1.0 mg/dLSGOT/AST 20.0 IU/LSGPT/ALT 19.0 IU/LALK PHOS 64.0 IU/LTOTAL PROTEIN 7.30 g/dLALBUMIN 4.50 g/dLTOTAL BILI 0.80 mg/dLCALCIUM 10.30 mg/dLAGE 59 GFR NonAA 76 GFR AA 92 eGFR >60 mL/min/1.73 m2eGFR AA* >60 MICROALBUMIN UR 5.0 ug/mLWBC 6.6 RBC 5.10 HGB 15.30 g/dLHCT 45.20 %MCV 89.0 fLMCH 30.0 pgMCHC 33.80 g/dLRDW SD 40 RDW CV 12.60 %MPV 10.80 fLPLT 178 NRBC# 0.00 NRBC% 0.0 %NEUT 61.70 %%LYMP 28.20 %%MONO 6.70 %%EOS 3.20 % %BASO 0.20 %#NEUT 4.05 #LYMP 1.85 #MONO 0.44 #EOS 0.21 #BASO 0.01 MANUAL DIFF NOT IND 04/21/2015 9:26 AM Clarity Ur clear Color Ur lt yellow Glucose Ur-sCnc >=1000 Bilirub Ur Ql Strip negative Ketones Ur Ql Strip negative Sp Gr Ur Qn 1.020 Hgb Ur Ql Strip negative pH Ur-LsCnc 5.5 Prot Ur Ql Strip negative Urobilinogen Ur- mCnc 1.0 Nitrite Ur Ql Strip negative WBC Est Ur Ql Strip negative 11/09/2015 8:40 AM WBC 7.4 RBC 5.07 HGB 15.40 g/dLHCT 45.50 %MCV 90.0 fLMCH 30.40 pgMCHC 33.80 g/dLRDW SD 40 RDW CV 12.20 %MPV 10.0 fLPLT 188 NRBC# 0.00 NRBC% 0.0 %NEUT 59.90 %%LYMP 28.70 %%MONO 6.80 %%EOS 3.90 %%BASO 0.40 %#NEUT 4.41 #LYMP 2.11 #MONO 0.50 #EOS 0.29 #BASO 0.03 MANUAL DIFF NOT IND MICROALBUMIN UR 7.0 ug/mLGLUCOSE 59.0 mg/dLSODIUM 138.0 mmol/LPOTASSIUM 4.60 mmol/LCHLORIDE 103.0 mmol/LCO2 27.0 mmol/LBUN 21.0 mg/dLCREATININE 1.0 mg/dLSGOT /AST 21.0 IU/LSGPT/ALT 15.0 IU/LALK PHOS 70.0 IU/LTOTAL PROTEIN 6.80 g/ dLALBUMIN 4.40 g/dLTOTAL BILI 0.70 mg/dLCALCIUM 9.60 mg/dLAGE 60 GFR NonAA 76 GFR AA 92 eGFR >60 mL/min/1.73meGFR AA* >60 TRIGLYCERIDES 79.0 mg/ dLCHOLESTEROL 145.0 mg/dLHDL 43.0 mg/dLTOT CHOL/HDL 3.4 LDL (CALC) 86.0 mg/ dLVITAMIN B12 422.0 pg/mL History Of Immunizations Not available. History of [...] 2015 4:49PM Anemia Nov 04 2015 4:49PM Diabetes Mellitus, Type II Jan 12 2016 8:17AM Essential Hypertension Jan 12 2016 8:17AM Hyperlipidemia Jan 12 2016 8:17AM Right wrist sprain, subsequent encounter Jan 12 2016 3:15PM Right wrist sprain, subsequent encounter Jan 27 2016 8:13AM De Quervain's disease (tenosynovitis) Jan 27 2016 8:13AM Right wrist sprain, subsequent encounter Feb 23 2016 8:09AM De Quervain's disease (tenosynovitis) Feb 23 2016 8:09AM Right wrist pain Mar 11 2016 3:24PM Encounter for CDL (commercial driving license) exam Apr 19 2016 10:10AM Hyperlipidemia Mar 14 2017 11:03AM Diabetes Mellitus, Type II Mar 14 2017 11:03AM Hypertension Mar 14 2017 11:03AM Anemia Mar 14 2017 11:03AM Payers Insurance Name Company Name Plan Name Plan Number Policy Number Policy Group Number Start Date [employer] [id number] N/A [facility] [id number] Tuesday, 2012 [employer] [facility] [id number] Sunday, 2011 [facility] Auto/Casualty Ins [facility] Auto/Casualty Ins [id number] N/A [place] [id number] N/A History of Encounters Visit Date Visit Type Provider 04/19/2016 Office visit Taco Renee LITHOPONE CHARGER 02/23/2016 Office visit Jareth Nieves DO 01/27/2016 Office visit Jareth Nieves DO 01/12/2016 Office visit Jareth Nieves DO 01/12/2016 Office visit Jareth Nieves DO 04/21/2015 Office visit Esperanza Shirley APRN 11/05/2014 Office visit Kwasi Neil MD 09/30/2014 Office visit Jareth Nieves DO 06/25/2014 Office visit 06/25/2014 Office visit Jareth Nieves DO 07/25/2013 Office visit Jareth Nieves DO 04/30/2013 Office visit Taco Renee APRN 01/01/2013 Office visit Jareth Nieves DO 07/24/2012 Office visit Jareth Nieves DO 06/02/2011 Office visit Jareth Nieves DO 05/03/2011 Office visit Kwasi Loomis PA-C 06/10/2010 Office visit Jareth Nieves DO
--- OUTSIDE RECORDS SUMMARY | 2017-05-03 04:54 | XMS REPORT ---
Author Author Jareth Nieves [facility] Address [address] [place], [place] [id number] Care Team Providers Care Sap Pi Architect Name Role Phone Jareth Nieves PCP Unavailable Allergies and Adverse Reactions Name [...] times per day as needed with food Discontinued Name Start Date Discontinued Date SIG [...] HC BMI BSA BMI Percentile O2 Sat(%) 02/23/2016 8:05:00 AM 128 mmHg 72 mmHg 65 bpm 16 rpm 98.3 F 230 lbs 73 in 30.34 kg/m2 2.32 m2 99 % 01/27/2016 8:08:00 AM 128 mmHg 76 mmHg 75 bpm 17 rpm 97.5 F 323 lbs 73 in 42.6143 kg/m 2.747 m 98 % 01/12/2016 3:12:00 PM 132 mmHg 76 mmHg 80 bpm 20 rpm 98.2 F 232 lbs 73 in 30.61 kg/m2 2.33 m2 98 % 01/12/2016 8:14:00 AM 136 mmHg 78 mmHg 60 bpm 18 rpm 98.4 F 232 lbs 73 in 30.6084 kg/m 2.3281 m 98 % 04/21/2015 8:21:00 AM 118 mmHg [...] QUANTIATIVE Reviewed 03/11/2016 12:00 AM Consult/Referral Reviewed 06/26/2012 12:00 AM COMPLETE CBC W/AUTO [...] BILI 0.70 mg/dLCALCIUM 9.70 mg/dLeGFR >60 mL/min/1.73 [id number] 150.0 mg/dLCHOLESTEROL 250.0 mg/dLHDL 37.0 mg/dLLDL (CALC) [...] BILI 1.40 mg/dLCALCIUM 10.40 mg/dLeGFR >60 mL/min/1.73 [id number] UR 253.60 mg/dLMICROALBUMIN UR 10.0 ug/mLALB:CREAT RATIO [...] BILI 0.80 mg/dLCALCIUM 10.30 mg/dLeGFR >60 mL/min/1.73 [id number] UR 5.0 ug/mLWBC 6.6 RBC 5.10 HGB [...] %MCV 90.0 fLMCH 30.40 pgMCHC 33.80 g/dLRDW CV 12.20 %MPV 10.0 fLPLT 188 %NEUT 59.90 %%LYMP 28.70 %%MONO 6.80 %%EOS 3.90 %%BASO 0.40 %#NEUT 4.41 #LYMP 2.11 #MONO 0.50 #EOS 0.29 #BASO 0.03 MICROALBUMIN UR 7.0 ug/mLGLUCOSE 59.0 mg/dLSODIUM 138.0 mmol/ LPOTASSIUM 4.60 mmol/LCHLORIDE 103.0 mmol/LCO2 27.0 mmol/LBUN 21.0 mg/ dLCREATININE 1.0 mg/dLSGOT/AST 21.0 IU/LSGPT/ALT 15.0 IU/LALK PHOS 70.0 IU/ LTOTAL PROTEIN 6.80 g/dLALBUMIN 4.40 g/dLTOTAL BILI 0.70 mg/dLCALCIUM 9.60 mg/ dLeGFR >60 mL/min/1.73mTRIGLYCERIDES 79.0 mg/dLCHOLESTEROL 145.0 mg/dLHDL 43.0 mg/dLLDL (CALC) 86.0 mg/dLVITAMIN B12 422.0 pg/mLHemoglobin A1c 5.90 % History Of Immunizations Not available. History of [...] Right wrist pain Mar 11 2016 3:24PM Payers Insurance Name Company Name Plan Name Plan Number Policy Number Policy Group Number Start Date [facility] Auto/Casualty Ins [facility] Auto/Casualty Ins [id number] N/A [employer] [place] [employer] [place] [id number] N/A [employer] [id number] N/A [facility] [id number] Tuesday, 2012 [employer] [facility] [id number] Sunday, 2011 History of Encounters Visit Date Visit Type Provider 02/23/2016 Office visit Jareth Nieves DO 01/27/2016 Office visit Jareth Nieves DO 01/12/2016 Office visit Jareth Nieves DO 01/12/2016 Office visit Jareth Nieves DO 04/21/2015 Office visit Esperanza Shirley PROGRAMS DIRECTOR 11/05/2014 Office visit Kwasi Neil MD 09/30/2014 Office visit Jareth Nieves DO 06/25/2014 Office visit 06/25/2014 Office visit Jareth Nieves DO 07/25/2013 Office visit Jareth Nieves DO 04/30/2013 Office visit Taco Renee PROGRAMS DIRECTOR 01/01/2013 Office visit Jareth Nieves DO 07/24/2012 Office visit Jareth Nieves DO 06/02/2011 Office visit Jareth Nieves DO 05/03/2011 Office visit Kwasi Loomis PA-C 06/10/2010 Office visit Jareth Nieves DO
--- OUTSIDE RECORDS SUMMARY | 2017-05-03 04:55 | XMS REPORT ---
Author Author Esperanza Shirley [facility] Address [address] [place], [place] [id number] Care Team Providers Care Vegetable Worker Name Role Phone Esperanza Shirley PCP Unavailable [...] BILI 0.70 mg/dLCALCIUM 9.70 mg/dLeGFR >60 mL/min/1.73 [id number] 150.0 mg/dLCHOLESTEROL 250.0 mg/dLHDL 37.0 mg/dLLDL (CALC) [...] BILI 1.40 mg/dLCALCIUM 10.40 mg/dLeGFR >60 mL/min/1.73 [id number] 253.60 mg/dLMICROALBUMIN UR 10.0 ug/mLALB:CREAT RATIO [...] BILI 0.80 mg/dLCALCIUM 10.30 mg/dLeGFR >60 mL/min/1.73 [id number] 5.0 ug/mLWBC 6.6 RBC 5.10 HGB [...] Policy Group Number Start Date BCBS Bcbs [facility] [id number] Sunday, 2011 [employer] [id number] N/A [facility] [id number] Tuesday, 2012 History of Encounters Visit Date Visit Type Provider 04/21/2015 Office visit Esperanza Shirley DISTRIBUTION WAREHOUSE MANAGER 11/05/2014 Office visit Kwasi Neil MD 09/30/2014 Office visit Jareth Nieves DO 06/25/2014 Office visit 06/25/2014 Office visit Jareth Nieves DO 07/25/2013 Office visit Jareth Nieves DO 04/30/2013 Office visit Taco Renee DISTRIBUTION WAREHOUSE MANAGER 01/01/2013 Office visit Jareth Nieves DO 07/24/2012 Office visit Jareth Nieves DO 06/02/2011 Office visit Jareth Nieves DO 05/03/2011 Office visit Kwasi Loomis PA-C 06/10/2010 Office visit Jareth Nieves DO
--- OUTSIDE RECORDS SUMMARY | 2017-05-03 04:56 | XMS REPORT ---
Author Author Penny Jimenez [facility] Address [address] [place], [place] [id number] Care Team Providers Care Guillotine Operator Name Role Phone Penny Jimenez PCP Unavailable Jareth Nieves PreferredProvider Unavailable Allergies and Adverse Reactions Name Reaction Notes NO KNOWN DRUG ALLERGIES Plan of Treatment Planned Activity Comments Planned Date Planned Time Plan/Goal EKG. 04/04/2017 12:00 AM Medications Active Name Start Date [...] ONCE DAILY Farxiga 10 mg oral tablet 03/06/2017 TAKE ONE TABLET BY MOUTH ONCE DAILY IN THE MORNING omeprazole 40 mg oral capsule,delayed release(DR/EC) 03/06/2017 TAKE ONE CAPSULE BY MOUTH ONCE DAILY BEFORE MEAL(S) lisinopril 20 mg oral tablet 03/20/2017 12/15/2017 TAKE TWO TABLETS BY MOUTH ONCE DAILY simvastatin 40 mg oral tablet 03/29/2017 04/28/2017 TAKE ONE TABLET BY MOUTH ONCE DAILY IN THE EVENING Name Start Date Expiration Date SIG Comments [...] BY MOUTH TWICE DAILY for 10 days Discontinued Name Start Date [...] HC BMI BSA BMI Percentile O2 Sat(%) 04/04/2017 8:40:00 AM 123 mmHg 61 mmHg 58 bpm 18 rpm 97.1 F 226 lbs 73 in 29.82 kg/m2 2.30 m2 98 % 04/19/2016 9:58:00 AM 136 mmHg 80 mmHg 58 bpm 18 rpm 96.8 F 228 lbs 73 in 30.0807 kg/m 2.308 m 99 % 02/23/2016 8:05:00 AM 128 mmHg [...] 12:00 AM DOT Physical w UA Reviewed 03/14/2017 12:00 AM COMPLETE CBC W/AUTO DIFF WBC Reviewed 03/14/2017 12:00 AM COMPREHEN METABOLIC PANEL Reviewed 03/14/2017 12:00 AM LIPID PANEL Reviewed 03/14/2017 12:00 AM GLYCOSYLATED HEMOGLOBIN TEST Reviewed 03/14/2017 12:00 AM VITAMIN B-12 Reviewed 03/14/2017 12:00 AM ALBUMIN URINE MICROALBUMIN QUANTIATIVE Reviewed 04/04/2017 9:50 AM URINALYSIS AUTO W/O SCOPE Reviewed 06/26/2012 12:00 AM COMPLETE CBC W/AUTO [...] (CALC) 86.0 mg/ dLVITAMIN B12 422.0 pg/mL 03/19/2017 8:56 AM VITAMIN B12 500.0 pg/mLWBC 7.7 RBC 5.20 HGB 15.70 g/dLHCT 46.40 %MCV 89.0 fLMCH 30.20 pgMCHC 33.80 g/dLRDW SD 40 RDW CV 12.20 %MPV 10.0 fLPLT 185 NRBC# 0.00 NRBC% 0.0 %NEUT 51.70 %%LYMP 27.80 %%MONO 7.0 %%EOS 12.20 % %BASO 1.0 %#NEUT 3.99 #LYMP 2.14 #MONO 0.54 #EOS 0.94 #BASO 0.08 MANUAL DIFF NOT IND HGB A1C 5.70 %Est Avg Glucose 116.9 mg/dLTRIGLYCERIDES 71.0 mg/ dLCHOLESTEROL 162.0 mg/dLHDL 47.0 mg/dLTOT CHOL/HDL 3.4 LDL (CALC) 101.0 mg/ dLGLUCOSE 97.0 mg/dLSODIUM 138.0 mmol/LPOTASSIUM 4.40 mmol/LCHLORIDE 103.0 mmol/ LCO2 29.0 mmol/LBUN 18.0 mg/dLCREATININE 1.0 mg/dLSGOT/AST 24.0 IU/LSGPT/ALT 19.0 IU/LALK PHOS 77.0 IU/LTOTAL PROTEIN 7.80 g/dLALBUMIN 4.60 g/dLTOTAL BILI 0.80 mg/dLCALCIUM 9.90 mg/dLAGE 62 GFR NonAA 75 GFR AA 91 eGFR >60 mL/min/1.73m eGFR AA* >60 MICROALBUMIN UR 6.0 ug/mL 04/04/2017 9:50 AM Color Ur Lt Yellow Glucose Ur-sCnc >=1000 Bilirub Ur Ql Strip Neg Ketones Ur Ql Strip Trace Sp Gr Ur Qn 1.020 Hgb Ur Ql Strip Neg pH Ur- LsCnc 5.0 Prot Ur Ql Strip Neg Urobilinogen Ur-mCnc 1.0 Nitrite Ur Ql Strip Neg WBC Est Ur Ql Strip Neg History Of Immunizations Not available. History of [...] 2017 11:03AM Anemia Mar 14 2017 11:03AM Encounter for Department of Transportation (DOT) examination for driving license renewal Apr 04 2017 8:44AM Payers Insurance Name Company Name Plan Name Plan Number Policy Number Policy Group Number Start Date [employer] [id number] N/A [facility] [id number] Tuesday, 2012 BCBS [facility] [id number] Sunday, 2011 [facility] Auto/Casualty Ins [facility] Auto/Casualty Ins [id number] N/A [place] [id number] N/A History of Encounters Visit Date Visit Type Provider 04/04/2017 Office visit Penny Jimenez GEOPHYSICAL MANAGER 04/19/2016 Office visit Taco Renee GEOPHYSICAL MANAGER 02/23/2016 Office visit Jareth Nieves DO 01/27/2016 Office visit Jareth Nieves DO 01/12/2016 Office visit Jareth Nieves DO 01/12/2016 Office visit Jareth Nieves DO 04/21/2015 Office visit Esperanza Shirley GEOPHYSICAL MANAGER 11/05/2014 Office visit Kwasi Neil MD 09/30/2014 Office visit Jareth Nieves DO 06/25/2014 Office visit 06/25/2014 Office visit Jareth Nieves DO 07/25/2013 Office visit Jareth Nieves DO 04/30/2013 Office visit Taco Renee GEOPHYSICAL MANAGER 01/01/2013 Office visit Jareth Nieves DO 07/24/2012 Office visit Jareth Nieves DO 06/02/2011 Office visit Jareth Nieves DO 05/03/2011 Office visit Kwasi Loomis PA-C 06/10/2010 Office visit Jareth Nieves DO
--- OUTSIDE RECORDS SUMMARY | 2017-05-03 04:57 | XMS REPORT ---
Author Author Taco Renee [facility] Address [address] [place], [place] [id number] Care Team Providers Care Explosive Ordnance Technician Name Role Phone Taco Renee PCP Allergies and Adverse Reactions Name Reaction Notes [...] TAKE ONE TABLET BY MOUTH TWICE DAILY metformin 850 mg oral tablet 04/25/2016 TAKE ONE TABLET BY MOUTH TWICE DAILY [...] BILI 0.70 mg/dLCALCIUM 9.70 mg/dLeGFR >60 mL/min/1.73 [id number] 150.0 mg/dLCHOLESTEROL 250.0 mg/dLHDL 37.0 mg/dLLDL (CALC) [...] BILI 1.40 mg/dLCALCIUM 10.40 mg/dLeGFR >60 mL/min/1.73 [id number] UR 253.60 mg/dLMICROALBUMIN UR 10.0 ug/mLALB:CREAT RATIO [...] #MONO 0.52 # EOS 0.28 #BASO 0.03 Est Avg Glucose 208.7 mg/dL 06/09/2014 7:50 AM [...] dLCHOLESTEROL 201.0 mg/dLHDL 42.0 mg/dLLDL (CALC) 135.0 mg/dLEst Avg Glucose 237.4 mg/dLPSA TOTAL 0.60 ng/mLMICROALBUMIN UR 17.0 ug/mL 09/22/2014 8:23 AM Est Avg Glucose 165.7 mg/dLTRIGLYCERIDES 93.0 mg/ dLCHOLESTEROL 162.0 mg/dLHDL 41.0 mg/dLLDL (CALC) 102.0 mg/dLGLUCOSE 137.0 mg/ dLSODIUM 139.0 mmol/LPOTASSIUM 4.50 mmol/LCHLORIDE 102.0 mmol/LCO2 23.0 mmol/ LBUN 19.0 mg/dLCREATININE 1.0 mg/dLSGOT/AST 20.0 IU/LSGPT/ALT 19.0 IU/LALK PHOS 64.0 IU/LTOTAL PROTEIN 7.30 g/dLALBUMIN 4.50 g/dLTOTAL BILI 0.80 mg/dLCALCIUM 10.30 mg/dLeGFR >60 mL/min/1.73 [id number] UR 5.0 ug/mLWBC 6.6 RBC 5.10 HGB [...] 43.0 mg/dLLDL (CALC) 86.0 mg/dLVITAMIN B12 422.0 pg/mL History Of Immunizations Not [...] driving license) exam Apr 19 2016 10:10AM Payers Insurance Name Company Name Plan Name Plan Number Policy Number Policy Group Number Start Date [employer] [id number] N/A [facility] [id number] Tuesday, 2012 BCBS Bcbs [facility] [id number] Sunday, 2011 [facility] Auto/Casualty Ins [facility] Auto/Casualty Ins [id number] N/A [place] [id number] N/A History of Encounters Visit Date Visit Type Provider 04/19/2016 Office visit Taco Renee REEL AND REWINDER OPERATOR 02/23/2016 Office visit Jareth Nieves DO 01/27/2016 Office visit Jareth Nieves DO 01/12/2016 Office visit Jareth Nieves DO 01/12/2016 Office visit Jareth Nieves DO 04/21/2015 Office visit Esperanza Shirley REEL AND REWINDER OPERATOR 11/05/2014 Office visit Kwasi Neil MD 09/30/2014 Office visit Jareth Nieves DO 06/25/2014 Office visit 06/25/2014 Office visit Jareth Nieves DO 07/25/2013 Office visit Jareth Nieves DO 04/30/2013 Office visit Taco Renee REEL AND REWINDER OPERATOR 01/01/2013 Office visit Jareth Nieves DO 07/24/2012 Office visit Jareth Nieves DO 06/02/2011 Office visit Jareth Nieves DO 05/03/2011 Office visit Kwasi Loomis PA-C 06/10/2010 Office visit Jareth Nieves DO
--- OUTSIDE RECORDS SUMMARY | 2017-05-03 04:59 | XMS REPORT ---
Author Author Jareth Nieves [facility] Address [address] [place], [place] [id number] Care Team Providers Care Recycling Manager Name Role Phone Jareth Nieves PCP Unavailable [...] by oral route once daily before supper Zorvolex 35 mg oral capsule 01/12/2016 take 1 capsule (35 mg) by oral route 3 times per day as needed with food simvastatin 40 mg oral tablet 01/19/2016 TAKE ONE TABLET BY MOUTH ONCE DAILY IN THE EVENING omeprazole 40 mg oral capsule,delayed release(DR/EC) 01/26/2016 TAKE ONE CAPSULE BY MOUTH ONCE DAILY BEFORE A MEAL naproxen 500 mg oral tablet 01/27/2016 take 1 tablet (500 mg) by oral route 3 times per day with food Name Start Date Expiration Date SIG Comments [...] HC BMI BSA BMI Percentile O2 Sat(%) 01/27/2016 8:08:00 AM 128 mmHg 76 mmHg [...] 12:00 AM ALBUMIN URINE MICROALBUMIN QUANTIATIVE Reviewed 06/26/2012 12:00 AM COMPLETE CBC W/AUTO [...] BILI 0.70 mg/dLCALCIUM 9.70 mg/dLeGFR >60 mL/min/1.73 [id number] 150.0 mg/dLCHOLESTEROL 250.0 mg/dLHDL 37.0 mg/dLLDL (CALC) [...] BILI 1.40 mg/dLCALCIUM 10.40 mg/dLeGFR >60 mL/min/1.73 [id number] UR 253.60 mg/dLMICROALBUMIN UR 10.0 ug/mLALB:CREAT RATIO [...] BILI 0.80 mg/dLCALCIUM 10.30 mg/dLeGFR >60 mL/min/1.73 [id number] UR 5.0 ug/mLWBC 6.6 RBC 5.10 HGB [...] Quervain's disease (tenosynovitis) Jan 27 2016 8:13AM Payers Insurance Name Company Name Plan Name Plan Number Policy Number Policy Group Number Start Date [facility] Auto/Casualty Ins [facility] Auto/Casualty Ins [id number] N/A [place] [id number] N/A [employer] [id number] N/A [facility] [id number] Tuesday, 2012 BCBS Bcbs [facility] [id number] Sunday, 2011 History of Encounters Visit Date Visit Type Provider 01/27/2016 Office visit Jareth Nieves DO 01/12/2016 Office visit Jareth Nieves DO 01/12/2016 Office visit Jareth Nieves DO 04/21/2015 Office visit Esperanza Shirley ICE CREAM DIPPER 11/05/2014 Office visit Kwasi Neil MD 09/30/2014 Office visit Jareth Nieves DO 06/25/2014 Office visit 06/25/2014 Office visit Jareth Nieves DO 07/25/2013 Office visit Jareth Nieves DO 04/30/2013 Office visit Taco Renee ICE CREAM DIPPER 01/01/2013 Office visit Jareth Nieves DO 07/24/2012 Office visit Jareth Nieves DO 06/02/2011 Office visit Jareth Nieves DO 05/03/2011 Office visit Kwasi Loomis PA-C 06/10/2010 Office visit Jareth Nieves DO
--- OUTSIDE RECORDS SUMMARY | 2017-05-03 05:00 | XMS REPORT ---
Author Author Taco Renee [facility] Address [address] [place], [place] [id number] Care Team Providers Care Podiatric Aide Name Role Phone Taco Renee PCP Jareth Nieves PreferredProvider Unavailable Allergies and Adverse Reactions Name Reaction Notes NO KNOWN DRUG ALLERGIES Plan of Treatment Not available. Medications Active Name Start Date Estimated Completion [...] ONCE DAILY Farxiga 10 mg oral tablet 08/09/2016 TAKE ONE TABLET BY MOUTH ONCE DAILY IN THE MORNING omeprazole 40 mg oral capsule,delayed release(DR/EC) 08/30/2016 TAKE ONE CAPSULE BY MOUTH ONCE DAILY BEFORE A MEAL glyburide 5 mg oral tablet 09/07/2016 09/02/2017 TAKE ONE TABLET BY MOUTH TWICE DAILY metformin 850 mg oral tablet 11/01/2016 TAKE ONE TABLET BY MOUTH TWICE DAILY lisinopril 20 mg oral tablet 01/09/2017 TAKE TWO TABLETS BY MOUTH ONCE DAILY Name Start Date Expiration Date SIG [...] Reviewed Results Summary Date and Description Results 07/10/2009 8:53 AM INR 1.0 PROTIME 10.20 secs 04/10/2010 10:55 AM TRIGLYCERIDES 128.0 mg/dLCHOLESTEROL 255.0 mg/dLHDL 43.0 mg /dLTOT CHOL/HDL 5.9 LDL (CALC) 186.0 mg/dLPSA TOTAL 0.620 ng/mLGLYCOHEMOGLOBIN A1C 7.40 %WBC 5.6 RBC 4.62 HGB 14.0 g/dLHCT 40.40 %MCV 87.0 fLMCH 30.30 pgMCHC 34.70 g/dLRDW SD 41 RDW CV 12.60 %MPV 10.60 fLPLT 175 NRBC# 0.00 NRBC% 0.0 % NEUT 52.70 %%LYMP 34.90 %%MONO 8.0 %%EOS 3.90 %%BASO 0.50 %#NEUT 2.95 #LYMP 1.96 #MONO 0.45 #EOS 0.22 #BASO 0.03 MANUAL DIFF NOT IND GLUCOSE 161.0 mg/ dLSODIUM 135.0 mmol/LPOTASSIUM 4.20 mmol/LCHLORIDE 100.0 mmol/LCO2 25.0 mmol/ LBUN 18.0 mg/dLCREATININE 1.10 mg/dLSGOT/AST 21.0 IU/LSGPT/ALT 21.0 IU/LALK PHOS 76.0 IU/LTOTAL PROTEIN 7.20 g/dLALBUMIN 4.20 g/dLTOTAL BILI 0.70 mg/ dLCALCIUM 9.80 mg/dLAGE 55 GFR NonAA 69 GFR AA 84 eGFR >60 mL/min/1.73 m2eGFR AA * >60 04/10/2010 11:00 AM CREAT UR 114.40 [...] LDL (CALC) 86.0 mg/ dLVITAMIN B12 422.0 pg/mLHemoglobin A1c 5.90 %Estim. Avg Glu (eAG) 123 05/27/2016 11:29 AM GLUCOSE POCT 99.0 mg/dL History Of Immunizations Not available. History of [...] Life Ins Co [employer] [id number] N/A [facility] [id number] Tuesday, 2012 BCBS Bcbs [facility] [id number] Sunday, 2011 [facility] Auto/Casualty Ins [facility] Auto/Casualty Ins [id number] N/A Comp [place] [id number] N/A History of Encounters Visit Date Visit Type Provider 04/19/2016 Office visit Taco Renee SALES REPRESENTATIVE WIRE ROPE 02/23/2016 Office visit Jareth Nieves DO 01/27/2016 Office visit Jareth Nieves DO 01/12/2016 Office visit Jareth Nieves DO 01/12/2016 Office visit Jareth Nieves DO 04/21/2015 Office visit Esperanza Shirley SALES REPRESENTATIVE WIRE ROPE 11/05/2014 Office visit Kwasi Neil MD 09/30/2014 Office visit Jareth Nieves DO 06/25/2014 Office visit 06/25/2014 Office visit Jareth Nieves DO 07/25/2013 Office visit Jareth Nieves DO 04/30/2013 Office visit Taco Renee SALES REPRESENTATIVE WIRE ROPE 01/01/2013 Office visit Jareth Nieves DO 07/24/2012 Office visit Jareth Nieves DO 06/02/2011 Office visit Jareth Nieves DO 05/03/2011 Office visit Kwasi Loomis PA-C 06/10/2010 Office visit Jareth Nieves DO
--- OUTSIDE RECORDS SUMMARY | 2017-05-03 05:01 | XMS REPORT ---
Author Author Taco Renee [facility] Address [address] [place], [place] [address] Care Team Providers Care Staff Readiness Officer Name Role Phone Taco Renee PCP Jareth [...] ONCE DAILY Farxiga 10 mg oral tablet 02/14/2017 02/24/2017 [...] BY MOUTH EVERY DAY for 10 days Name Start Date Expiration Date SIG Comments [...] Life Ins Co [employer] [id number] N/A [facility] [id number] Tuesday, 2012 BCBS Bcbs [facility] [id number] Sunday, 2011 [facility] Auto/Casualty Ins [facility] Auto/Casualty Ins [id number] N/A Comp [place] [id number] N/A History of Encounters Visit Date Visit Type Provider 04/19/2016 Office visit Taco Reene FIRE BOAT ENGINEER 02/23/2016 Office visit Jareth Nieves DO 01/27/2016 Office visit Jareth Nieves DO 01/12/2016 Office visit Jareth Nieves DO 01/12/2016 Office visit Jareth Nieves DO 04/21/2015 Office visit Esperanza Shirley FIRE BOAT ENGINEER 11/05/2014 Office visit Kwasi Neil MD 09/30/2014 Office visit Jareth Nieves DO 06/25/2014 Office visit 06/25/2014 Office visit Jareth Nieves DO 07/25/2013 Office visit Jareth Nieves DO 04/30/2013 Office visit Taco Renee FIRE BOAT ENGINEER 01/01/2013 Office visit Jareth Nieves DO 07/24/2012 Office visit Jareth Nieves DO 06/02/2011 Office visit Jareth Nieves DO 05/03/2011 Office visit Kwasi Loomis PA-C 06/10/2010 Office visit Jareth Nieves DO
--- OUTSIDE RECORDS SUMMARY | 2017-05-03 05:02 | XMS REPORT ---
Author Author Jareth Nieves [facility] Address [address] [place], [place] [id number] Care Team Providers Care Assembler Installer General Name Role Phone Jareth Nieves PCP Unavailable [...] Completion Date SIG Comments Aspirin Low Dose Oral Tablet, Delayed Release (E.C.) 81 mg take 1 tablet (81 mg) by oral route once daily omeprazole oral capsule,delayed release(DR/EC) 40 mg 08/20/2013 TAKE ONE CAPSULE BY MOUTH EVERY DAY BEFORE A MEAL lisinopril oral tablet 20 mg 09/16/2013 TAKE TWO TABLETS BY MOUTH EVERY DAY simvastatin oral tablet 20 mg 01/13/2014 TAKE ONE TABLET BY MOUTH EVERY DAY IN THE EVENING omeprazole oral capsule,delayed release(DR/EC) 40 mg 02/25/2014 TAKE ONE CAPSULE BY MOUTH EVERY DAY BEFORE A MEAL metformin oral tablet 850 mg 04/07/2014 TAKE ONE TABLET BY MOUTH TWICE DAILY simvastatin oral tablet 40 mg 06/26/2014 TAKE ONE TABLET BY MOUTH EVERY DAY IN THE EVENING lisinopril oral tablet 20 mg 06/30/2014 TAKE TWO TABLETS BY MOUTH EVERY DAY metformin oral tablet 850 mg 07/07/2014 TAKE ONE TABLET BY MOUTH TWICE DAILY glyburide oral tablet 5 mg 07/28/2014 TAKE ONE TABLET BY MOUTH TWICE DAILY omeprazole oral capsule,delayed release(DR/EC) 40 mg 08/26/2014 TAKE ONE CAPSULE BY MOUTH EVERY DAY BEFORE A MEAL lisinopril oral tablet 20 mg 09/22/2014 TAKE TWO TABLETS BY MOUTH EVERY DAY Farxiga oral tablet 10 mg 09/30/2014 09/25/2015 take 1 tablet (10 mg) by oral route once daily in the morning for 30 days simvastatin oral tablet 40 mg 10/07/2014 TAKE ONE TABLET BY MOUTH ONCE DAILY IN THE EVENING Anusol-HC rectal suppository 25 mg 11/25/2014 insert 1 suppository (25 mg) by rectal route 2 times per day as needed Name Start Date Expiration Date SIG Comments lisinopril Oral tablet 20 mg 09/05/2012 12/04/2012 TAKE TWO TABLETS BY MOUTH EVERY DAY metformin Oral tablet 850 mg 01/01/2013 12/27/2013 TAKE ONE TABLET BY MOUTH TWICE DAILY simvastatin Oral tablet 20 mg 01/01/2013 12/27/2013 TAKE ONE TABLET BY MOUTH EVERY DAY IN THE EVENING omeprazole oral capsule,delayed release(DR/EC) 40 mg 01/01/2013 06/30/2013 take 1 capsule (40 mg) by oral route once daily before a meal for 30 days glyburide Oral Tablet 5 mg 07/25/2013 07/20/2014 TAKE ONE TABLET BY MOUTH TWICE DAILY Discontinued Name Start Date Discontinued Date SIG Comments Simvastatin Oral Tablet 40 mg 06/10/2010 06/10/2010 take 1 tablet (40 mg) by oral route once daily in the evening History of muscle aches Lisinopril Oral Tablet 40 mg 06/10/2010 07/24/2012 1QD - TAKE ONE TABLET BY MOUTH EVERY DAY TAKING 2 20MG TABS Crestor Oral Tablet 40 mg 06/10/2010 07/02/2010 take 0.5 tablet by oral route daily Muscle aches Lotrisone Topical Lotion 1-0.05 % 06/02/2011 07/24/2012 apply to the affected area(s) by topical route 2 times per day in the morning and evening Metrogel Topical Gel 1 % 10/12/2011 07/24/2012 apply to the affected area(s) by topical route once daily ; rub in gently and completely Invokana oral tablet 300 mg 06/25/2014 08/12/2014 take 1 tablet (300 mg) by oral route once daily before the first meal of the day Problem List Description Status Onset Diabetes Mellitus, Type II Active Hypertension Active Hyperlipidemia Active 06/02/2011 Hand Eczema Active 06/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 Vital Signs Date Time BP-Sys(mm[Hg] BP-Jolene(mm[Hg]) HR(bpm) RR(rpm) Temp WT HT HC BMI BSA BMI Percentile O2 Sat(%) 11/05/2014 3:23:00 PM 110 mmHg 60 mmHg [...] of Procedures Date Ordered Description Order Status 05/03/2011 12:00 AM URINALYSIS AUTO W/O SCOPE Reviewed 05/24/2011 12:00 AM COMPLETE CBC W/AUTO DIFF WBC Reviewed 05/24/2011 12:00 AM COMPREHEN METABOLIC PANEL Reviewed 05/24/2011 12:00 AM LIPID PANEL Reviewed 05/24/2011 12:00 AM LIPID PANEL Reviewed 05/24/2011 12:00 AM LIPID PANEL Reviewed 05/24/2011 12:00 AM LIPID PANEL Reviewed 05/24/2011 12:00 AM GLYCOSYLATED HEMOGLOBIN TEST Reviewed 05/24/2011 12:00 AM MICROALBUMIN SEMIQUANT Reviewed 06/02/2011 12:00 AM METABOLIC PANEL TOTAL CA Reviewed 06/02/2011 12:00 AM LIPID PANEL Reviewed 06/02/2011 12:00 AM GLYCOSYLATED HEMOGLOBIN TEST Reviewed 06/26/2012 12:00 AM COMPLETE CBC W/AUTO DIFF WBC Reviewed 06/26/2012 12:00 AM COMPREHEN METABOLIC PANEL Reviewed 06/26/2012 12:00 AM LIPID PANEL Reviewed 06/26/2012 12:00 AM GLYCOSYLATED HEMOGLOBIN TEST Reviewed 06/26/2012 12:00 AM MICROALBUMIN SEMIQUANT Reviewed 01/21/2013 12:00 AM METABOLIC PANEL TOTAL [...] AM LIPID PANEL Reviewed 07/03/2013 12:00 AM LIPID PANEL Reviewed 07/03/2013 12:00 AM MICROALBUMIN SEMIQUANT Reviewed 04/06/2010 12:00 AM COMPLETE CBC W/AUTO DIFF WBC Reviewed 04/06/2010 12:00 AM COMPREHEN METABOLIC PANEL Reviewed 04/06/2010 12:00 AM LIPID PANEL Reviewed 04/06/2010 12:00 AM LIPID PANEL Reviewed 04/06/2010 12:00 AM GLYCOSYLATED HEMOGLOBIN TEST Reviewed 04/06/2010 12:00 AM MICROALBUMIN SEMIQUANT Reviewed 12/11/2010 12:00 AM METABOLIC PANEL TOTAL CA Reviewed 12/11/2010 12:00 AM LIPID PANEL Reviewed 12/11/2010 12:00 AM GLYCOSYLATED HEMOGLOBIN TEST Reviewed 06/06/2014 12:00 AM COMPLETE CBC W/AUTO DIFF WBC Reviewed 06/06/2014 12:00 AM COMPREHEN METABOLIC PANEL Reviewed 06/06/2014 12:00 AM LIPID PANEL Reviewed 06/06/2014 12:00 AM GLYCOSYLATED HEMOGLOBIN TEST Reviewed 06/06/2014 12:00 AM MICROALBUMIN SEMIQUANT Reviewed 09/16/2014 12:00 AM COMPLETE CBC W/AUTO [...] BILI 0.70 mg/dLCALCIUM 9.70 mg/dLeGFR >60 mL/min/1.73 [id number] 150.0 mg/dLCHOLESTEROL 250.0 mg/dLHDL 37.0 mg/dLLDL (CALC) [...] BILI 1.40 mg/dLCALCIUM 10.40 mg/dLeGFR >60 mL/min/1.73 [id number] UR 253.60 mg/dLMICROALBUMIN UR 10.0 ug/mLALB:CREAT RATIO 4 TRIGLYCERIDES 119.0 mg/dLCHOLESTEROL 203.0 mg/dLHDL 43.0 mg/dLLDL (CALC) 136.0 mg/dLPSA TOTAL 0.610 ng/mLWBC 7.2 RBC 5.21 HGB 16.0 g/dLHCT 45.20 %MCV 87.0 fLMCH 30.70 pgMCHC 35.40 g/dLRDW CV 12.40 %MPV 11.20 fLPLT 232 %NEUT 56.50 %%LYMP 32.0 %%MONO 7.20 %%EOS 3.90 %%BASO 0.40 %#NEUT 4.05 #LYMP 2.30 #MONO 0.52 #EOS 0.28 #BASO 0.03 HGB A1C 8.90 % 06/09/2014 7:50 AM WBC 8.1 RBC 4.84 [...] 42.0 mg/dLLDL (CALC) 135.0 mg/dLHGB A1C 9.90 %PSA TOTAL 0.60 ng/mLMICROALBUMIN UR 17.0 ug/mL 09/22/2014 8:23 AM HGB A1C 7.40 %TRIGLYCERIDES 93.0 mg/dLCHOLESTEROL 162.0 mg/ dLHDL 41.0 mg/dLLDL (CALC) 102.0 mg/dLGLUCOSE 137.0 mg/dLSODIUM 139.0 mmol/ LPOTASSIUM 4.50 mmol/LCHLORIDE 102.0 mmol/LCO2 23.0 mmol/LBUN 19.0 mg/ dLCREATININE 1.0 mg/dLSGOT/AST 20.0 IU/LSGPT/ALT 19.0 IU/LALK PHOS 64.0 IU/ LTOTAL PROTEIN 7.30 g/dLALBUMIN 4.50 g/dLTOTAL BILI 0.80 mg/dLCALCIUM 10.30 mg/ dLeGFR >60 mL/min/1.73 [id number] UR 5.0 ug/mLWBC 6.6 RBC 5.10 HGB 15.30 g/ dLHCT 45.20 %MCV 89.0 fLMCH 30.0 pgMCHC 33.80 g/dLRDW CV 12.60 %MPV 10.80 fLPLT 178 %NEUT 61.70 %%LYMP 28.20 %%MONO 6.70 %%EOS 3.20 %%BASO 0.20 %#NEUT 4.05 # LYMP 1.85 #MONO 0.44 #EOS 0.21 #BASO 0.01 History Of Immunizations Not available. History of [...] Abdominal pain, RUQ Nov 05 2014 3:28PM Payers Insurance Name Company Name Plan Name Plan Number Policy Number Policy Group Number Start Date [facility] [id number] Sunday, June 19, 2011 [employer] [id number] N/A [facility] [id number] Tuesday, July 24, 2012 History of Encounters Visit Date Visit Type Provider 11/05/2014 Office visit Kwasi Neil MD 09/30/2014 [...]
--- OUTSIDE RECORDS SUMMARY | 2017-05-03 05:03 | XMS REPORT ---
Author Author Esperanza Shirley [facility] Address [address] [place], [place] [id number] Care Team Providers Care Scaler Packer Name Role Phone Esperanza Shirley PCP Unavailable [...] BILI 0.70 mg/dLCALCIUM 9.70 mg/dLeGFR >60 mL/min/1.73 [id number] 150.0 mg/dLCHOLESTEROL 250.0 mg/dLHDL 37.0 mg/dLLDL (CALC) [...] BILI 1.40 mg/dLCALCIUM 10.40 mg/dLeGFR >60 mL/min/1.73 [id number] UR 253.60 mg/dLMICROALBUMIN UR 10.0 ug/mLALB:CREAT RATIO [...] BILI 0.80 mg/dLCALCIUM 10.30 mg/dLeGFR >60 mL/min/1.73 [id number] UR 5.0 ug/mLWBC 6.6 RBC 5.10 HGB [...] Policy Group Number Start Date BCBS Bcbs [facility] [id number] Sunday, 2011 [employer] [id number] N/A [facility] [id number] Tuesday, 2012 History of Encounters Visit Date Visit Type Provider 04/21/2015 Office visit Esperanza Shirley CATTLE STICKER 11/05/2014 Office visit Kwasi Neil MD 09/30/2014 Office visit Jareth Nieves DO 06/25/2014 Office visit 06/25/2014 Office visit Jareth Nieves DO 07/25/2013 Office visit Jareth Nieves DO 04/30/2013 Office visit Taco Renee CATTLE STICKER 01/01/2013 Office visit Jareth Nieves DO 07/24/2012 Office visit Jareth Nieves DO 06/02/2011 Office visit Jareth Nieves DO 05/03/2011 Office visit Kwasi Loomis PA-C 06/10/2010 Office visit Jareth Nieves DO
--- OUTSIDE RECORDS SUMMARY | 2017-05-03 05:05 | XMS REPORT ---
Author Author Taco Renee [facility] Address [address] [place], [place] [id number] Care Team Providers Care Mechanical Assembly Technician Name Role Phone Taco Renee PCP Jareth [...] Life Ins Co [employer] [id number] N/A [facility] [id number] Tuesday, 2012 BCBS Bcbs [facility] [id number] Sunday, 2011 [facility] Auto/Casualty Ins [facility] Auto/Casualty Ins [id number] N/A [place] [id number] N/A History of Encounters Visit Date Visit Type Provider 04/19/2016 Office visit Taco Renee HVAC RESIDENTIAL SERVICE TECHNICIAN 02/23/2016 Office visit Jareth Nieves DO 01/27/2016 [...]
--- OUTSIDE RECORDS SUMMARY | 2017-05-03 05:06 | XMS REPORT ---
Author Author Esperanza Shirley [facility] Address [address] [place], [place] [id number] Care Team Providers Care Chemical Plant Operator Name Role Phone Esperanza Shirley PCP Unavailable [...] BILI 0.70 mg/dLCALCIUM 9.70 mg/dLeGFR >60 mL/min/1.73 [id number] 150.0 mg/dLCHOLESTEROL 250.0 mg/dLHDL 37.0 mg/dLLDL (CALC) [...] BILI 1.40 mg/dLCALCIUM 10.40 mg/dLeGFR >60 mL/min/1.73 [id number] UR 253.60 mg/dLMICROALBUMIN UR 10.0 ug/mLALB:CREAT RATIO [...] BILI 0.80 mg/dLCALCIUM 10.30 mg/dLeGFR >60 mL/min/1.73 [id number] UR 5.0 ug/mLWBC 6.6 RBC 5.10 HGB [...] Policy Group Number Start Date BCBS [place] [facility] [place] [id number] Sunday, 2011 [employer] [id number] N/A [facility] [id number] Tuesday, 2012 History of Encounters Visit Date Visit Type Provider 04/21/2015 Office visit Esperanza Shirley SUPERINTENDENT TERMINAL 11/05/2014 Office visit Kwasi Neil MD 09/30/2014 Office visit Jareth Nieves DO 06/25/2014 Office visit 06/25/2014 Office visit Jareth Nieves DO 07/25/2013 Office visit Jareth Nieves DO 04/30/2013 Office visit Taco Renee SUPERINTENDENT TERMINAL 01/01/2013 Office visit Jareth Nieves DO 07/24/2012 Office visit Jareth Nieves DO 06/02/2011 Office visit Jareth Nieves DO 05/03/2011 Office visit Kwasi Loomis PA-C 06/10/2010 Office visit Jareth Nieves DO
--- OUTSIDE RECORDS SUMMARY | 2017-05-03 05:07 | XMS REPORT ---
Author Author Jareth Nieves [facility] Address [address] [place], [place] [id number] Care Team Providers Care Vocal Music Instructor Name Role Phone Jareth Nieves PCP Unavailable [...] 12:00 AM MICROALBUMIN SEMIQUANT 01/22/2014 12:00 AM HEPATOBILIARY SYSTEM IMAGING 11/05/2014 12:00 AM Medications Active Name Start Date [...] 12:00 AM ECHO EXAM OF ABDOMEN Reviewed Results Summary Data and Description Results 07/10/2009 [...] BILI 0.70 mg/dLCALCIUM 9.70 mg/dLeGFR >60 mL/min/1.73 [id number] 150.0 mg/dLCHOLESTEROL 250.0 mg/dLHDL 37.0 mg/dLLDL (CALC) [...] BILI 1.40 mg/dLCALCIUM 10.40 mg/dLeGFR >60 mL/min/1.73 [id number] UR 253.60 mg/dLMICROALBUMIN UR 10.0 ug/mLALB:CREAT RATIO [...] 0.80 mg/dLCALCIUM 10.30 mg/ dLeGFR >60 mL/min/1.73 [id number] UR 5.0 ug/mLWBC 6.6 RBC 5.10 HGB [...] Number Policy Group Number Start Date Bcbs [facility] [id number] Sunday, 2011 [employer] [id number] N/A [facility] [id number] Tuesday, 2012 History of Encounters Visit Date [...]
--- OUTSIDE RECORDS SUMMARY | 2017-05-03 05:07 | XMS REPORT | CCD ---
Author Author LUISA SALAZAR Organization Unknown Address [address] [place] [address] Care Team Providers Care Security Associate Name Role Phone LINDA CONTRERAS, BHAVNA Maradiaga Attphys Allergies Allergy Code Allergy Type Reaction Status NO KNOWN DRUG ALLERGIES - NKDA 0 Drug allergy Active Active Medications No Active Medications Problems Unknown or Not Available. Procedures Procedure Code Procedure Type Date Incision extensor tendon sheath wrist; (-RT Right side of body) 79772 CPT 05/27/2016 BEDSIDE GLUCOSE [id number] SNOMED CT 05/27/2016 Results BEDSIDE GLUCOSE - Collect Date/Time: 05/27/2016 11:29 Test Name Code Test Result Test Units Test Ref Range GLUCOSE POCT 99 MG/DL L=70 H=100 Function Status Unknown or Not Available. History of Immunizations Unknown or Not Available. Plan of Treatment Unknown or Not Available. Social History Smoking Status Code Start Date End Date Never smoker [id number] Vital Signs Vital Sign Value Unit Date/Time Recent/Initial? Weight Measured 225 [lb_av] 05/21/2016 13:51 Initial VS Height 73 [in_i] 05/21/2016 13:51 Initial VS BMI (Body Mass Index) 29.68 kg/m2 05/21/2016 13:51 Initial VS BSA (Body Surface Area) 2.29 m2 05/21/2016 13:51 Initial VS BP Systolic 97 mm[Hg] 05/27/2016 15:20 Initial VS BP Diastolic 56 mm[Hg] 05/27/2016 15:20 Initial VS Heart Rate 57 /min 05/27/2016 15:20 Initial VS O2 % BldC Oximetry 96 % 05/27/2016 15:23 Initial VS Respiratory Rate 15 /min 05/27/2016 15:24 Initial VS BP Systolic 124 mm[Hg] 05/27/2016 15:49 Most Recent VS BP Diastolic 67 mm[Hg] 05/27/2016 15:49 Most Recent VS Respiratory Rate 12 /min 05/27/2016 15:50 Most Recent VS Heart Rate 53 /min 05/27/2016 15:50 Most Recent VS O2 % BldC Oximetry 99 % 05/27/2016 15:50 Most Recent VS Function Status Unknown or Not Available. Goals Unknown or Not Available. ASSESSMENTS Unknown or Not Available. Health Concerns Section Unknown or Not Available.
--- OUTSIDE RECORDS SUMMARY | 2017-05-03 05:08 | XMS REPORT ---
Author Author Jareth Nieves [facility] Address [address] [place], [place] [phone] Care Team Providers Care Sorority Mother Name Role Phone Jareth Nieves PCP Unavailable [...] HC BMI BSA BMI Percentile O2 Sat(%) 01/12/2016 3:12:00 PM 132 mmHg 76 mmHg [...] BILI 0.70 mg/dLCALCIUM 9.70 mg/dLeGFR >60 mL/min/1.73 [id number] 150.0 mg/dLCHOLESTEROL 250.0 mg/dLHDL 37.0 mg/dLLDL (CALC) [...] BILI 1.40 mg/dLCALCIUM 10.40 mg/dLeGFR >60 mL/min/1.73 [id number] UR 253.60 mg/dLMICROALBUMIN UR 10.0 ug/mLALB:CREAT RATIO [...] BILI 0.80 mg/dLCALCIUM 10.30 mg/dLeGFR >60 mL/min/1.73 [id number] UR 5.0 ug/mLWBC 6.6 RBC 5.10 HGB [...] sprain, subsequent encounter Jan 12 2016 3:15PM Payers Insurance Name Company Name Plan Name Plan Number Policy Number Policy Group Number Start Date [employer] [id number] N/A [facility] [id number] Tuesday, 2012 BCBS [employer] [place] [id number] Sunday, 2011 [facility] Auto/Casualty Ins [facility] Auto/Casualty Ins [id number] N/[place] [id number] N/A History of Encounters Visit Date Visit Type Provider 01/12/2016 Office visit Jareth Nieves DO 01/12/2016 Office visit Jareth Nieves DO 04/21/2015 Office visit Esperanza Shirley GAS REFRIGERATOR SERVICER 11/05/2014 Office visit Kwasi Neil MD 09/30/2014 [...]
--- OUTSIDE RECORDS SUMMARY | 2017-05-03 05:09 | XMS REPORT ---
Author Author Jareth Nieves [facility] Address [address] [place], [place] [phone] Care Team Providers Care Digital Project Coordinator Name Role Phone Jareth Nieves PCP Unavailable [...] BY MOUTH ONCE DAILY IN THE MORNING Name Start Date Expiration Date SIG Comments [...] BILI 0.70 mg/dLCALCIUM 9.70 mg/dLeGFR >60 mL/min/1.73 [id number] 150.0 mg/dLCHOLESTEROL 250.0 mg/dLHDL 37.0 mg/dLLDL (CALC) [...] BILI 1.40 mg/dLCALCIUM 10.40 mg/dLeGFR >60 mL/min/1.73 [id number] UR 253.60 mg/dLMICROALBUMIN UR 10.0 ug/mLALB:CREAT RATIO [...] BILI 0.80 mg/dLCALCIUM 10.30 mg/dLeGFR >60 mL/min/1.73 [id number] UR 5.0 ug/mLWBC 6.6 RBC 5.10 HGB [...] Quervain's disease (tenosynovitis) Feb 23 2016 8:09AM Payers Insurance Name Company Name Plan Name Plan Number Policy Number Policy Group Number Start Date [facility] Auto/Casualty Ins [facility] Auto/Casualty Ins [id number] N/A [place] [id number] N/A [employer] [id number] N/A [facility] [id number] Tuesday, 2012 BCBS Bcbs [facility] [id number] Sunday, 2011 History of Encounters Visit Date Visit Type Provider 02/23/2016 Office visit Jareth Nieves DO 01/27/2016 Office visit Jareth Nieves DO 01/12/2016 Office visit Jareth Nieves DO 01/12/2016 Office visit Jareth Nieves DO 04/21/2015 Office visit Esperanza Shirley BURR SANDER 11/05/2014 Office visit Kwasi Neil MD 09/30/2014 Office visit Jareth Nieves DO 06/25/2014 Office visit 06/25/2014 Office visit Jareth Nieves DO 07/25/2013 Office visit Jareth Nieves DO 04/30/2013 Office visit Taco Renee BURR SANDER 01/01/2013 Office visit aJreth Nieves DO 07/24/2012 Office visit Jareth Nieves DO 06/02/2011 Office visit Jareth Nieves DO 05/03/2011 Office visit Kwasi Loomis PA-C 06/10/2010 Office visit Jareth Nieves DO
--- OUTSIDE RECORDS SUMMARY | 2017-05-03 05:11 | XMS REPORT ---
Author Author Penny Jimenez [facility] Address [address] [place], [place] [address] Care Team Providers Care Slackline Operator Name Role Phone Penny Jimenez PCP [...] Life Ins Co [employer] [id number] N/A [facility] [id number] Tuesday, 2012 BCBS [facility] [id number] Sunday, 2011 [facility] Auto/Casualty Ins [facility] Auto/Casualty Ins [id number] N/A Comp [place] [id number] N/A History of Encounters Visit Date Visit Type Provider 04/04/2017 Office visit Penny Jimenez CHIEF SUBSTATION OPERATOR 04/19/2016 Office visit Taco Renee CHIEF SUBSTATION OPERATOR 02/23/2016 Office visit Jareth Nieves DO 01/27/2016 Office visit Jareth Nieves DO 01/12/2016 Office visit Jareth Nieves DO 01/12/2016 Office visit Jareth Nieves DO 04/21/2015 Office visit Espearnza Shirley CHIEF SUBSTATION OPERATOR 11/05/2014 Office visit Kwasi Neil MD 09/30/2014 Office visit Jareth Nieves DO 06/25/2014 Office visit 06/25/2014 Office visit Jareth Nieves DO 07/25/2013 Office visit Jareth Nieves DO 04/30/2013 Office visit Taco Renee CHIEF SUBSTATION OPERATOR 01/01/2013 Office visit Jareth Nieves DO 07/24/2012 Office visit Jareth Nieves DO 06/02/2011 Office visit Jareth Nieves DO 05/03/2011 Office visit Kwasi Loomis PA-C 06/10/2010 Office visit Jareth Nieves DO
--- OUTSIDE RECORDS SUMMARY | 2017-05-03 05:11 | XMS REPORT | Continuity of Care Document ---
Author Author [facility] Organization [facility] Address Unknown Phone Unavailable Allergies Medications Problems Procedures Results Encounters ACCT No. Visit Date/Time Discharge Status Pt. Type Provider Facility Loc./Unit Complaint [id number] 04/04/2017 09:20:32 04/04/2017 23: 59:59 CLS Outpatient Tony Penny [id number] 04/19/2016 11:24:43 04/19/2016 23: 59:59 CLS Outpatient Taco Renee [id number] 02/23/2016 14:30:21 02/23/2016 23: 59:59 CLS Outpatient Jareth Nieves [id number] 01/27/2016 08:57:09 01/27/2016 23: 59:59 CLS Outpatient Jareth Nieves [id number] 01/12/2016 16:11:31 01/12/2016 23: 59:59 CLS Outpatient Jareth Nieves [id number] 01/12/2016 08:55:30 01/12/2016 23: 59:59 CLS Outpatient Jareth Nieves [id number] 04/21/2015 08:58:28 04/21/2015 23: 59:59 CLS Outpatient Esperanza Shirley [id number] 11/05/2014 15:58:40 11/05/2014 23: 59:59 CLS Outpatient Kwasi Neil [id number] 06/25/2014 16:13:01 06/25/2014 23: 59:59 CLS Outpatient Jareth Nieves [id number] 07/25/2013 09:02:48 07/25/2013 23: 59:59 CLS Outpatient Jareth Nieves
[2017-05-03 05:16] LABS: MEAN PLATELET VOLUME 11.4 FL (7.4-10.4); RED BLOOD COUNT 4.77 10^6/uL (4.35-5.85); RED CELL DISTRIBUTION WIDTH 12.9 % (10.0-14.5); WHITE BLOOD COUNT 8.2 10^3/uL (4.3-11.0)
[2017-05-03 05:37] LABS: ANION GAP 10 MMOL/L (5-14); BLOOD UREA NITROGEN 16 MG/DL (7-18); BUN/CREATININE RATIO 20; CALCIUM 9.3 MG/DL (8.5-10.1); CARBON DIOXIDE 23 MMOL/L (21-32); CHLORIDE 105 MMOL/L (98-107); CREATININE SERUM 0.79 MG/DL (0.60-1.30); GFR ESTIMATED > 60; GLUCOSE 96 MG/DL (70-105); POTASSIUM 4.1 MMOL/L (3.6-5.0); SODIUM 138 MMOL/L (135-145)
[2017-05-03 06:56] VITALS: BP 132/73
[2017-05-03] MEDS ORDERED: glyBURIDE 5 MG (MICRONASE) TAB PO SCH (07:00)
[2017-05-03] MEDS ORDERED: Omeprazole 40 MG CAPSULE PO SCH (07:00)
[2017-05-03] MEDS ORDERED: METO-270 PO (07:54)
--- NOTE | 2017-05-03 07:56 | Cardiology Progress Note ---
Subjective Date Seen by Provider: May 03, 2017 Time Seen by Provider: 07:53 Subjective/Events-last exam patient is laying down in bed, feeling well. Had transient bradycardia last night, still having frequent PVCs Review of Systems General: No Chills, No Night Sweats, No Fatigue, No Malaise, No Appetite, No Other HEENT: No Head Aches, No Visual Changes, No Eye Pain, No Ear Pain, No Dysphasia , No Sinus Congestion, No Post Nasal Drip, No Sore Throat, No Other Pulmonary: No Dyspnea, No Cough, No Pleuritic Chest Pain, No Other Cardiovascular: No: Chest Pain, Palpitations, Orthopnea, Paroxysmal Noc. Dyspnea, Edema, Lt Headedness, Other Objective-Cardiology Exam Last Set of Vital Signs Vital Signs 05/02/17 05/03/17 17:30 06:56 Temp 97.7 Pulse 54 Resp 20 B/P (MAP) 132/73 Pulse Ox 98 O2 Delivery Room Air O2 Flow Rate 2.00 Capillary Refill : Less Than 3 Seconds I&O Intake and Output 05/04/17 00:00 Intake Total 300 ml Balance 300 ml Intake Oral 300 ml # Voids 1 General: Alert, Oriented X3, Cooperative HEENT: Atraumatic, PERRLA Neck: Supple, No JVD, No Thyromegaly Lungs: Clear to Auscultation, Normal Air Movement Heart: Regular Rate, Normal S1, Normal S2, No Murmurs Abdomen: Normal Bowel Sounds, Soft, No Tenderness, No Hepatosplenomegaly, No Masses Extremities: No Clubbing, No Cyanosis, No Edema, Normal Pulses, No Tenderness/ Swelling Skin: No Rashes, No Breakdown, No Significant Lesion Neuro: Normal Gait, Normal Speech, Strength at 5/5 X4 Ext, Normal Tone, Sensation Intact Psych/Mental Status: Mental Status NL, Mood NL Results Lab Laboratory Tests 05/02/17 15:25 05/03/17 04:45 A/P-Cardiology Admission Diagnosis CAD NSVT HTN HLD Assessment/Plan Nonsustained ventricular tachycardia during stress test, started on low-dose beta blockers, cardiac catheterization showed mild coronary artery disease Coronary artery disease mild per cardiac catheterization Hypertension, continue current medication and monitor Hyperlipidemia, continue on current medications and monitor Diabetes mellitus followed and managed by primary care physician LORENZA MAHONEY MD May 03, 2017 07:56
--- NOTE | 2017-05-03 07:56 | Discharge Inst-Post CATH ---
Discharge Inst-CATH Post Cardiac Cath D/C Inst Follow Up/Plan Hold metformin for [address] Foster's office next week CARDIAC CATH DISCHARGE INSTRUCTIONS *Hold Metformin for 48 hours post heart cath. ACTIVITY * Go Home directly and rest. * Limit activity of the leg (or wrist if it was used) for 7 days including aerobics, swimming, jogging, bicycling, etc. * Restrict stair-climbing for 7 days if possible, if not, climb up with your non -cath leg, then bring together on the same step. * Avoid lifting, pushing, pulling or excessive movement of the affected extremity for 7 days. * Customary sexual activity may be resumed after 2 days-use caution not to use a position that strains or causes pain to the affected extremity. * No driving for 24 hours. * NO SMOKING. * Avoid straining for bowel movements for 7 days. * Gentle walking on level ground is allowed. * Returning to work will depend on the type of procedure and the results. Your doctor will discuss this with you. CALL YOUR DOCTOR FOR ANY OF THE FOLLOWING: *If bleeding from the puncture site occurs- Apply gentle pressure to site with clean cloth and call your doctor or EMS. * If a knot or lump forms under the skin, increases in size, or causes pain. * If bruising appears to be worsening or moving further down your leg instead of disappearing. * Temperature above 101 F. CARE OF YOUR GROIN INCISION; * Bruising or purple discoloration of the skin near the puncture site is common. * You may shower only, no bathtub bathing for 5 days. Be careful to avoid slipping as your leg may feel stiff. * If a closure device was used on your femoral artery, please see the attached guide regarding care of the device and your leg. * REMOVE the dressing from your groin the next day after your procedure in the shower. CARE OF YOUR WRIST INCISION; * Bruising or purple discoloration of the skin near the puncture site is common. * You may shower. * DO NOT submerge wrist. * Remove dressing in 24 hours. LORENZA FOSTER MD May 03, 2017 07:56
[2017-05-03 08:00] VITALS: BP 113/62
[2017-05-03] MEDS ORDERED: lisINopril 20 MG (ZESTRIL) TAB PO SCH (09:00)
[2017-05-03 09:58] VITALS: BP 113/62
== END 2017-05-03 09:05 | disposition home or self-care (01) ==
LOC: CATH 15:03 → ICU 16:45 → CATH 05-03 09:05
PROVIDERS: ATTEND Internal Medicine Cardiovascular Disease
DX: I47.2 Ventricular tachycardia (principal); I44.0 Atrioventricular block, first degree; I49.3 Ventricular premature depolarization; I10 Essential (primary) hypertension; E78.5 Hyperlipidemia, unspecified; Z82.49 Family history of ischemic heart disease and other diseases of the circulatory system; Z79.84 Long term (current) use of oral hypoglycemic drugs; Z79.899 Other long term (current) drug therapy
CPT/HCPCS: 36415; 71010; 80048; 80053; 80061; 85027; 85610; 85730; 87081; 93458

== ENCOUNTER → 2017-05-02 | Outpatient (CLI) | payer BC ==
[~2017-05-02] MED LIST: ASPI-983 PO; DAPA10TA PO; GLYB5TAB6 PO; LISI-552 PO; METF850T2 PO; METO-270 PO; MULT-1029 PO; OMEP40CA36 PO; SIMV40TA4 PO
--- NOTE | 2017-05-02 16:04 | Cardiac Procedure Note-CS/ASA ---
Pre-Procedure Note Pre-Op Procedure Note H&P Reviewed The H&P was reviewed, patient examined and no changes noted. Date H&P Reviewed: May 02, 2017 Time H&P Reviewed: 16:04 Conscious Sedation Pre-Proced Time Reviewed: 16:04 ASA Class: 3 Airway Mallampati Classification: ([place] appropriate class) I. II. III, IV Lungs Heart ASA score ASA 1: a normal healthy patient ASA 2: a patient with a mild systemic disease (mid diabetes, controlled hypertension, obesity x ASA 3: a patient with a severe systemic disease that limits activity (angina , COPD, prior Myocardial infarction) ASA 4: a patient with an incapacitating disease that is a constant threat to life (CHF, renal failure) ASA 5: a moribund patient not expected to survive 24 hrs. (ruptured aneurysm) ASA 6: a declared brain patient whose organs are being harvested. For emergent operations, add the letter E after the classification Grade 3 Sedation Plan: Analgesia, Amnesia, Plan communicated to team members, Discussed options with patient/fam, Discussed risks with patient/fam Note The patient is an appropriate candidate to undergo the planned procedure, sedation, and anesthesia. The patient immediately re-assessed prior to indication. LORENZA MAHONEY MD May 02, 2017 16:04
--- NOTE | 2017-05-03 08:16 | STRESS TEST ---
DATE OF SERVICE: 05/02/2017 EXERCISE STRESS ECHOCARDIOGRAM REPORT Baseline heart rate is 69. Baseline blood pressure 138/70. Baseline EKG is sinus rhythm with frequent PVCs. SUMMARY: The patient started exercising with the baseline heart rate, blood pressure, EKG mentioned above. Early in exercise, he started to have frequent PVCs, multifocal ventricular bigeminy and few episodes of nonsustained ventricular tachycardia up to 6 beats. He was able to finish a total of 7 minutes on standard [place] protocol, achieving maximum heart rate of 139, which is 88% of maximum expected heart rate. With peak exercise level, blood pressure was 188/92. During exercise, continued to have PVCs, ventricular couplets, ventricular bigeminy and nonsustained ventricular tachycardia, in recovery continued to have frequent PVCs and ventricular couplets. At the end of the test, the patient returned to sinus rhythm with frequent PVCs, no acute ischemic changes. Echocardiographic images were acquired and reviewed in the parasternal long axis, parasternal short axis, apical four-chamber and apical two-chamber views. Review of the images showed mild reduced and left ventricular contractility with peak stress level, suggestive of ischemia. CONCLUSION: 1. Good exercise tolerance. A total of 7 minutes on standard [place] protocol, total of 8.3 METS, achieving 88% of maximum expected heart rate. 2. Frequent PVCs, ventricular bigeminy and ventricular couplets, in addition to multiple episodes of nonsustained ventricular tachycardia noted during exercise. 3. Nondiagnostic EKG changes, with exercise returned to baseline during recovery. 4. Mild diffuse left ventricular hypokinesia with peak exercise with ejection fraction 50% at rest. Job ID: [id number] DocumentID: [id number] Dictated Date: 05/02/2017 15:58:35 Arc Welding Machine Operator Date: 05/03/2017 00:42:46 Dictated By: LORENZA MAHONEY MD
== END ==
LOC: CARD 11:25
PROVIDERS: ATTEND Internal Medicine Cardiovascular Disease
DX: I10 Essential (primary) hypertension (principal); I49.3 Ventricular premature depolarization; E78.5 Hyperlipidemia, unspecified; E11.9 Type 2 diabetes mellitus without complications
CPT/HCPCS: 93306; 93351

== ENCOUNTER → 2019-12-29 | Outpatient (CLI) | payer BC, MEDICARE ==
[~2019-12-29] MED LIST changes: +ASPI-983 PO; +DAPA10TA PO; +GLYB5TAB6 PO; -HEParin (CATH LAB) 2,000 ML IV ONE; +LISI-552 PO; +METF-398 PO; +MTP25TSR PO; +MULT-1029 PO; -NS IV 1000 ML 1,000 ML ONE; +OMEP40CA27 PO; +SIMV40TA25 PO
[2019-12-29 09:20] LABS: ALBUMIN 4.5 GM/DL (3.2-4.5); CHLORIDE 104 MMOL/L (98-107); POTASSIUM 4.6 MMOL/L (3.6-5.0); SODIUM 139 MMOL/L (135-145)
[2019-12-29 09:21] LABS: CALCIUM 9.9 MG/DL (8.5-10.1)
[2019-12-29 09:22] LABS: GLUCOSE 158 MG/DL (70-105); TOTAL PROTEIN 7.5 GM/DL (6.4-8.2); TRIGLYCERIDES 99 MG/DL (<150); VLDL CHOLESTEROL 20 MG/DL (5-40)
[2019-12-29 09:23] LABS: CARBON DIOXIDE 25 MMOL/L (21-32)
[2019-12-29 09:24] LABS: BILIRUBIN,TOTAL 0.7 MG/DL (0.1-1.0)
[2019-12-29 09:26] LABS: ALKALINE PHOSPHATASE 78 U/L (40-136); CREATININE SERUM 1.16 MG/DL (0.60-1.30); GFR ESTIMATED > 60
[2019-12-29 09:27] LABS: BUN/CREATININE RATIO 14; CHOLESTEROL 186 MG/DL (< 200)
[2019-12-29 09:28] LABS: HDL CHOLESTEROL 45 MG/DL (40-60)
[2019-12-29 09:29] LABS: ALANINE AMINOTRANSFERASE 19 U/L (0-55)
== END ==
LOC: LAB 08:30
PROVIDERS: ATTEND Family Medicine
DX: D64.9 Anemia, unspecified (principal); E78.5 Hyperlipidemia, unspecified; E11.9 Type 2 diabetes mellitus without complications; I10 Essential (primary) hypertension; Z80.9 Family history of malignant neoplasm, unspecified
CPT/HCPCS: 36415; 80053; 80061; 82043; 82607; 83036

== ENCOUNTER → 2020-10-06 | Outpatient (CLI) | payer BC, MEDICARE ==
[~2020-10-06] MED LIST changes: +ASPI-1238 PO; -ASPI-983 PO; +GLBR5T PO; -GLYB5TAB6 PO; -LISI-552 PO; +LISI20TA26 PO
== END ==
LOC: CARD 10:30
PROVIDERS: ATTEND Internal Medicine Cardiovascular Disease
DX: I11.9 Hypertensive heart disease without heart failure (principal); I34.0 Nonrheumatic mitral (valve) insufficiency
CPT/HCPCS: 93306

== ENCOUNTER → 2021-03-17 | Outpatient (CLI) | payer MEDICARE ==
[~2021-03-17] MED LIST changes: -OMEP40CA27 PO; +OMEP40CA6 PO
[2021-03-17 08:07] LABS: BASOPHILS # (AUTO) 0.1 10^3/uL (0.0-0.1); BASOPHILS % (AUTO) 1 % (0-10); EOSINOPHILS # (AUTO) 0.3 10^3/uL (0.0-0.3); EOSINOPHILS % (AUTO) 4 % (0-10); HEMATOCRIT 45 % (40-54); HEMOGLOBIN 15.1 g/dL (13.3-17.7); LYMPHOCYTES % (AUTO) 31 % (12-44); MEAN CORPUSCULAR HEMOGLOBIN 30 pg (25-34); MEAN CORPUSCULAR HGB CONC 33 g/dL (32-36); MEAN CORPUSCULAR VOLUME 91 fL (80-99); MEAN PLATELET VOLUME 10.5 fL (9.0-12.2); MONOCYTES # (AUTO) 0.6 10^3/uL (0.0-1.0); MONOCYTES % (AUTO) 10 % (0-12); NEUTROPHILS # (AUTO) 3.5 10^3/uL (1.8-7.8); NEUTROPHILS % (AUTO) 54 % (42-75); PLATELET COUNT 165 10^3/uL (130-400); WHITE BLOOD COUNT 6.4 10^3/uL (4.3-11.0)
[2021-03-17 08:27] LABS: ALBUMIN 4.3 GM/DL (3.2-4.5); BILIRUBIN,TOTAL 0.8 MG/DL (0.1-1.0); POTASSIUM 4.6 MMOL/L (3.6-5.0); TOTAL PROTEIN 7.1 GM/DL (6.4-8.2)
== END ==
LOC: LAB 07:45
PROVIDERS: ATTEND Family Medicine
DX: D64.9 Anemia, unspecified (principal); E11.9 Type 2 diabetes mellitus without complications; E78.5 Hyperlipidemia, unspecified; I10 Essential (primary) hypertension
CPT/HCPCS: 36415; 80053; 80061; 82043; 82607; 83036; 85025

== ENCOUNTER 2021-06-05 23:32 | Emergency (ER) | payer MEDICARE ==
[~2021-06-05] VITALS: Ht 185 cm; Wt 103.0 kg
[2021-06-06 00:26] LABS: BASOPHILS % (AUTO) 1 % (0-10); EOSINOPHILS # (AUTO) 0.2 10^3/uL (0.0-0.3); EOSINOPHILS % (AUTO) 4 % (0-10); HEMATOCRIT 43 % (40-54); HEMOGLOBIN 14.9 g/dL (13.3-17.7); LYMPHOCYTES # (AUTO) 1.9 10^3/uL (1.0-4.0); LYMPHOCYTES % (AUTO) 35 % (12-44); MEAN CORPUSCULAR HEMOGLOBIN 31 pg (25-34); MEAN CORPUSCULAR HGB CONC 35 g/dL (32-36); MEAN CORPUSCULAR VOLUME 89 fL (80-99); MEAN PLATELET VOLUME 10.5 fL (9.0-12.2); MONOCYTES # (AUTO) 0.4 10^3/uL (0.0-1.0); MONOCYTES % (AUTO) 8 % (0-12); NEUTROPHILS # (AUTO) 2.9 10^3/uL (1.8-7.8); NEUTROPHILS % (AUTO) 53 % (42-75); PLATELET COUNT 155 10^3/uL (130-400); WHITE BLOOD COUNT 5.4 10^3/uL (4.3-11.0)
[2021-06-06 00:37] LABS: ALBUMIN 4.2 GM/DL (3.2-4.5); CHLORIDE 104 MMOL/L (98-107); INR 0.9 (0.8-1.4); POTASSIUM 4.1 MMOL/L (3.6-5.0); PROTHROMBIN TIME PATIENT 12.7 SEC (12.2-14.7); SODIUM 137 MMOL/L (135-145)
[2021-06-06 00:38] LABS: CALCIUM 9.1 MG/DL (8.5-10.1)
[2021-06-06 00:39] LABS: GLUCOSE 285 MG/DL (70-105)
[2021-06-06 00:40] LABS: CARBON DIOXIDE 19 MMOL/L (21-32)
[2021-06-06 00:41] LABS: BILIRUBIN,TOTAL 0.4 MG/DL (0.1-1.0)
[2021-06-06 00:43] LABS: ALKALINE PHOSPHATASE 116 U/L (40-136); CREATININE SERUM 1.07 MG/DL (0.60-1.30); GFR ESTIMATED 69
[2021-06-06 00:44] LABS: BUN/CREATININE RATIO 13
[2021-06-06 00:46] LABS: ALANINE AMINOTRANSFERASE 19 U/L (0-55); CREATINE KINASE 158 U/L (30-200)
--- NOTE | 2021-06-06 02:13 | ED Cardiac General ---
History of Present Illness General Chief Complaint: Chest Pain Stated Complaint: PALPITATIONS Nursing Triage Note: PALPATATIONS Source: patient History of Present Illness ASA po BRICK PITCHER: No Allergies and Home Medications Allergies Coded Allergies: No Known Allergies (Unverified Allergy, Unknown, 05/02/17) Patient Home Medication List Aspirin (Aspirin EC) 81 Mg Tablet.dr, 81 MG PO HS, (Reported) Entered as Reported by: MOLLY MA on 05/02/17 160 Dapagliflozin Propanediol (Farxiga) 10 Mg Tablet, 10 MG PO DAILY, (Reported) Entered as Reported by: MOLLY MA on 05/02/171607 Glyburide (Glyburide) 5 Mg Tablet, 5 MG PO DAILY, (Reported) Entered as Reported by: MOLLY MA on 05/02/171607 Lisinopril (Lisinopril) 20 Mg Tablet, 40 MG PO DAILY, (Reported) Entered as Reported by: MOLLY MA on 05/02/171607 Metoprolol Succinate (Metoprolol Succinate) 25 Mg Tab.er.24h, 25 MG PO DAILY Prescribed by: LORENZA MAHONEY on 05/03/17 0754 Multivit-Min/FA/Lycopene/Lut (Centrum Silver Tablet) 1 Each Tablet, 1 TAB PO DAILY, (Reported) Entered as Reported by: MOLLY MA on 05/02/171607 Omeprazole (Omeprazole) 40 Mg Capsule.dr, 40 MG PO DAILY, (Reported) Entered as Reported by: MOLLY MA on 05/02/171607 Simvastatin (Simvastatin) 40 Mg Tablet, 40 MG PO HS, (Reported) Entered as Reported by: MOLLY MA on 05/02/171607 Past Hrbgcyx-Pgvssx-Dmjifm Hx Patient Social History Tobacco Use?: Yes Tobacco type used: Cigars Substance use?: No Alcohol Use?: No Pt feels they are or have been: No Immunizations Up To Date First/Initial COVID19 Vaccinat: 09/07 Second COVID19 Vaccination [place]: 10/05 COVID19 Vaccine Pile Driving Technician: [employer] Past Medical History Surgery/Hospitalization HX: NH,HTN,T/A, HERNIA, ORTHO Physical Exam Vital Signs Vital Signs - First Documented 06/06/21 00:04 Temp 36.8 Pulse 66 Resp 18 B/P (MAP) 143/94 (110) Pulse Ox 98 O2 Delivery Room Air Capillary Refill : Less Than 3 Seconds Height, Weight, BMI Height: 6'1.00" Weight: 222lbs. 4.0oz. 100.389040rn; 30.00 BMI Method: Progress/Results/Core Measures Results/Orders Lab Results Laboratory Tests Test 06/06/21 00:18 Range/Units White Blood Count 5.4 4.3-11.0 10^3/uL Red Blood Count 4.85 4.30-5.52 10^6/uL Hemoglobin 14.9 13.3-17.7 g/dL Hematocrit 43 40-54 % Mean Corpuscular Volume 89 80-99 fL Mean Corpuscular Hemoglobin 31 25-34 pg Mean Corpuscular Hemoglobin Concent 35 32-36 g/dL Red Cell Distribution Width 12.0 10.0-14.5 % Platelet Count 155 130-400 10^3/uL Mean Platelet Volume 10.5 9.0-12.2 fL Immature Granulocyte % (Auto) 0 % Neutrophils (%) (Auto) 53 42-75 % Lymphocytes (%) (Auto) 35 12-44 % Monocytes (%) (Auto) 8 0-12 % Eosinophils (%) (Auto) 4 0-10 % Basophils (%) (Auto) 1 0-10 % Neutrophils # (Auto) 2.9 1.8-7.8 10^3/uL Lymphocytes # (Auto) 1.9 1.0-4.0 10^3/uL Monocytes # (Auto) 0.4 0.0-1.0 10^3/uL Eosinophils # (Auto) 0.2 0.0-0.3 10^3/uL Basophils # (Auto) 0.0 0.0-0.1 10^3/uL Immature Granulocyte # (Auto) 0.0 0.0-0.1 10^3/uL Prothrombin Time 12.7 12.2-14.7 SEC INR Comment 0.9 0.8-1.4 Activated Partial Thromboplast Time 28 24-35 SEC Sodium Level 137 135-145 MMOL/L Potassium Level 4.1 3.6-5.0 MMOL/L Chloride Level 104 98-107 MMOL/L Carbon Dioxide Level 19 L 21-32 MMOL/L Anion Gap 14 5-14 MMOL/L Blood Urea Nitrogen 14 7-18 MG/DL Creatinine 1.07 0.60-1.30 MG/DL Estimat Glomerular Filtration Rate 69 BUN/Creatinine Ratio 13 Glucose Level 285 H 70-105 MG/DL Calcium Level 9.1 8.5-10.1 MG/DL Corrected Calcium 8.9 8.5-10.1 MG/DL Magnesium Level 2.0 1.6-2.4 MG/DL Total Bilirubin 0.4 0.1-1.0 MG/DL Aspartate Amino Transf (AST/SGOT) 22 5-34 U/L Alanine Aminotransferase (ALT/SGPT) 19 0-55 U/L Alkaline Phosphatase 116 40-136 U/L Total Creatine Kinase 158 30-200 U/L Creatine Kinase MB 3.0 <6.6 NG/ML Troponin I < 0.028 <0.028 NG/ML B-Type Natriuretic Peptide 97.3 <100.0 PG/ML Total Protein 7.0 6.4-8.2 GM/DL Albumin 4.2 3.2-4.5 GM/DL My Orders Orders - CHALO MARTINEZ DO Ed Iv/Invasive Line Start (06/06/21 00:17) Ekg Tracing (06/06/21 00:17) Monitor-Rhythm Ecg Trace Only (06/06/21 00:17) BNP (06/06/21 00:17) Cbc With Automated Diff (06/06/21:17) Comprehensive Metabolic Panel (06/06/21 00:17) Creatine Kinase (06/06/21 00:17) Creatine Kinase Mb (06/06/21 00:17) Magnesium (06/06/21 00:17) Protime With Inr (06/06/21:17) Partial Thromboplastin Time (06/06/21 00:17) Troponin I (06/06/21 00:17) Chest 1 View, Ap/Pa Only (06/06/21 00:17) Drug Screen Stat (Urine) (06/06/21 01:48) Ua Culture If Indicated (06/06/21 01:48) Vital Signs/I&O 06/06/21 00:04 Temp 36.8 Pulse 66 Resp 18 B/P (MAP) 143/94 (110) Pulse Ox 98 O2 Delivery Room Air Blood Pressure Mean: 110 Departure Impression Primary Impression: Palpitations Additional Impression: Hyperglycemia due to type 2 diabetes mellitus Disposition: HOME, SELF-CARE Condition: Improved Departure-Patient Inst. Decision time for Depature: 02:10 Referrals: GWEN SNELL MD (PCP/Family) Primary Care Physician LORENZA MAHONEY MD Patient Instructions: Palpitations, Type 2 Diabetes (DC) Add. Discharge Instructions: CONTINUE YOUR MEDICATIONS PRESCRIBED FOLLOW UP WITH DR. MAHONEY IF SYMPTOMS PERSIST, RETURN TO ER IF WORSE FOLLOW UP WITH DR. SNELL NEEDED All discharge instructions reviewed with patient and/or family. Voiced understanding. CHALO MARTINEZ DO Jun 06, 2021 02:13
[2021-06-06 02:15] VITALS: BP 123/76
--- NOTE | 2021-06-06 06:40 | Diagnostic Imaging Report ---
Clinical Indication: Patient with palpitations. Exam: Portable chest x-ray upright view. Comparisons: Chest x-ray dated 05/02/2017. Findings: Lungs/pleura: Lungs are clear. There is no pneumothorax. There is no pleural effusion. Mediastinum: Unremarkable. Pulmonary vasculature: Unremarkable. Heart: Unremarkable. Bones/extrathoracic soft tissue: There are hypertrophic spurs involving the thoracic spine. Impression: There is no radiographic evidence of acute cardiopulmonary process. Dictated by: Dictated on workstation # [id number]
--- OUTSIDE RECORDS SUMMARY | 2021-06-08 11:26 | XMS REPORT | CCD ---
Author Author Roney Michelle Organization Darya Castillo MD, [facility] Address [address] [place] [address] Phone Care Team Providers Care Teller Head Name Role Phone Darya Castillo PP Unavailable CCM Unavailable Summary Purpose Interface Exchange Insurance Providers Payer name Policy type / Coverage type Covered democrat ID Effective Begin Date Effective End Date WPS Medicare Part B Medicare Part B [id number] Unknown Unkno wn Family history Sister Diagnosis Age At Onset Cancer Unknown Father Diagnosis Age At Onset Alcoholism Unknown Cancer Unknown Brother Diagnosis Age At Onset Osteoporosis Unknown Hypertension Unknown Cancer Unknown Diabetes mellitus Type 1 Unknown Heart Attack Unknown Mother Diagnosis Age At Onset Heart Attack Unknown Diabetes mellitus Type 1 Unknown Hypertension Unknown Social History Social History Element Codes Description Effective Dates Tobacco history SNOMED CT: 245493948 Never smoker 05/28/[address]: 547188430 Never drinks alcohol 2020 Allergies, Adverse Reactions, Alerts Substance Reaction Codes Entered Date Inactivated Date Status NO KNOWN ALLERGIES Unknown 05/28/2021 No Inactive Date Active Problems Condition Codes Effective Dates Condition Status Diabetes Unknown 05/28/2021 Active Hyperlipidemia Unknown 05/28/2021 Active Hypertension Unknown 05/28/2021 Active Essential hypertension ICD-10: I10 ICD-9: 401.9 05/28/2021 Active History of [place] (myocardial infarction) ICD-10: I25.2 ICD-9: 412 05/28/2021 Active Hyperlipidemia ICD-10: f33.1 ICD-9: 272.4 05/28/2021 Active Screening for malignant neoplasm of colon ICD-10: Z12. 11 ICD-9: V76.51 05/28/2021 Active Screening for prostate cancer ICD-10: Z12.5 ICD-9: V76.44 05/28/2021 Active Type 2 diabetes mellitus with hyperglycemia ICD-10: E1 1.65 ICD-9: 250.00 05/28/2021 Active Medications Medication Codes Instructions Start Date Stop Date Status Fill Instructions omeprazole 40 mg capsule,delayed release RxNorm: 452646 Take 1 Capsule(s) Oral every day 06/01/2021 11/27/2021 Active metoprolol succinate ER 50 mg tablet,extended release 24 hr RxNorm: 033578 Take 1 Tablet(s) Oral every day 05/28/2021 No Stop Date Active atorvastatin 20 mg tablet RxNorm: 868288 Take 1 Tablet(s) Oral every day 05/28/2021 No Stop Date Active metformin 850 mg tablet RxNorm: 691487 Take 1 Tablet(s) Oral ev modest[place] day 05/28/2021 No Stop Date Active lisinopril 20 mg tablet RxNorm: 837243 Take 1 Tablet(s) Oral ev [place] day 05/28/2021 No Stop Date Active glyburide 5 mg tablet RxNorm: 367503 Take 1 Tablet(s) Oral every da y 05/28/2021 No Stop Date Active aspirin 81 mg tablet,delayed release RxNorm: 596188 Misael e 1 Tablet(s) Oral every day 05/28/2021 No Stop Date Active Farxiga 10 mg tablet RxNorm: 1446523 Take 1 Tablet(s) Oral every da y 05/28/2021 No Stop Date Active omeprazole 40 mg capsule,delayed release RxNorm: 895264 Take 1 Capsule(s) Oral every day 05/28/2021 06/01/2021 Inactive Centrum Silver Men oral RxNorm: oral 05/28/2021 Activ e Medication Administered No Medication Administered data Immunizations Vaccine Codes Date Status Covid-19 CVX: 207 09/24/2020 Covid-19 CVX: 207 08/27/2020 Influenza CVX: 135 01/16/2020 Tetanus/Diptheria CVX: 09 01/15/2017 Results No Results data Procedures No Procedures data Vital Signs Date Vital 05/28/2021 Blood Pressure 1: 132/74 Code: 8480-6 BMI: 30.9 Code: 97022-5 Heart Rate 1: 58 bpm Height: 6'1" Code: 8302-2 SpO2: 98% Temperature: 3 6.3 (C) / 97.3 (F) Weight: 234 lbs Code: 04332-7 Functional Status No Functional Status data Reason For Visit Reason For Visit Effective Dates Notes well man exam (65+ years) 05/28/2021 Encounters Encounter Performer Location Codes Date (66131) OFFICE VISIT, NEW - LEVEL 4 Diagnosis: Essential hypertension[ICD10: I10] Diagnosis: Hyperlipidemia[ICD10: f33.1] Diagnosis: Type 2 diabetes mellitus with hyperglycemia[ICD10: E11.65] Diagnosis: Screening for prostate cancer[ICD10: Z12.5] Diagnosis: Screening for malignant neoplasm of colon[ICD10: Z12.11] Sonya Castillo MD, [facility] CPT-4: 17913 05/28/2021 Plan of Care Planned Activity Notes Codes Status Date Visit Plan: Hypertension - well controll ed - continue with current medications, continue with no added salt diet. Pt has been encouraged to exercise daily. The pt has been advised to call the office if there are any acute concerns about change in blood pressure readings at home. Hyperlipidemia - pt has been counseled about appropriate diet, exercise, and need for low fat food choices. I have discussed the need for the patient to take medications as prescribed. If the patient has negative side effects from the medication, they are to CALL the office and not abruptly discontinue the medication without discussion with a practitioner in the office. We will check labs in 3-6 months for follow up on the patient's chronic medical problem and to assure normal liver response to medications. Diabetes Mellitus - controlled - per recent FSBS reports. I have recommended for the patient to have follow up labs prior to the next office visit. The patient has been instructed to continue with current medications as previously directed, continue with regular FSBS monitoring to assure continued control of diabetes. Pt to call for any acute concerns, complaints, or if the blood glucose readings are starting to become less controlled. Pt reports last A1C around 7. Does not want to check labs more than once a year. Next labs due in August. Pt to sign release to get previous records. History of [place] - pt denies any cardiac symptoms. Follows up with Dr. Foster in September 2021. Colon Cancer Screening - pt previous colonoscopy 7 years ago, denies polyps and recommendations were to follow up in 10 years. He declines further colonos copies. Discussed use of Cologuard for early detection. Cologuard orders sent. Prostate Cancer Screening - Pt reports PSA a year ago, will obtain at next lab draw. 05/28/2021 [facility]ment: [facility] [phone] [id number] [facility] 05/28/2021 Patient Education: Patient Medication Summary Completed 05/28/2021 Patient Education: Hypertension Completed 05/28/2021 Care Plan: Lipid Pending 05/28/2021 Care Plan: %Hba1C LOINC : 06776-7 Pending 05/28/2021 Care Plan: Tsh Pending 05/28/2021 Care Plan: Total Psa Pending 021 Care Plan: Cbc With Differential Pending 05/28/2021 Care Plan: Comp Metabolic Pending Instructions Comment FASTING LABS DUE IN AUGUST, INCLUDE PS A, WILL SEND TO DR FOSTER SIGN RELEASE FOR PREVIOUS RECORDS WILL ORDER COLOGUARD, AND THEY WILL MAIL YOU THE KIT . Hypertension - well controlled - charity nue with current medications, continue with no added salt diet. Pt has been encouraged to exercise daily. The pt has been advised to call the office if there are any acute concerns about change in blood pressure readings at home. Hyperlipidemia - pt has been counseled about appropriate diet, exercise, and need for low fat food choices. I have discussed the need for the patient to take medications as prescribed. If the patient has negative side effects from the medication, they are to CALL the office and not abruptly discontinue the medication without discussion with a practitioner in the office. We will check labs in 3-6 months for follow up on the patient's chronic medical problem and to assure normal liver response to medications. Diabetes Mellitus - controlled - per recent FSBS reports. I have recommended for the patient to have follow up labs prior to the next office visit. The patient has been instructed to continue with current medications as previously directed, continue with regular FSBS monitoring to assure continued control of diabetes. Pt to call for any acute concerns, complaints, or if the blood glucose readings are starting to become less controlled. Pt reports last A1C around 7. Does not want to check labs more than once a year. Next labs due in August. Pt to sign release to get previous records. History of [place] - pt denies any cardiac symptoms. Follows up with Dr. Foster in September 2021. Colon Cancer Screening - pt previous colonoscopy 7 years ago, denies polyps and recommendations were to follow up in 10 years. He declines further colonoscopies. Discussed use of Cologuard for early detection. Cologuard orders sent. Prostate Cancer Screening - Pt reports PSA a year ago, will obtain at next lab draw. Medical Equipment No Medical Equipment data Health Concerns Section Health Concerns data not found Goals Section Goals data not found Interventions Section Interventions data not found Health Status Evaluations/Outcomes Section Health Status Evaluations/Outcomes data not found Advance Directives No Advance Directive data
--- OUTSIDE RECORDS SUMMARY | 2021-06-08 11:26 | XMS REPORT | CCD ---
Author Author Roney Michelle Organization Darya Castillo MD, [facility] Address [address] [place] [address] Phone Care Team Providers Care Academic Specialist Name Role Phone Darya Castillo PP Unavailable CCM Unavailable Summary Purpose Interface Exchange Insurance Providers Payer name Policy type / Coverage type Covered green party ID Effective Begin Date Effective End Date WPS Medicare Part B Medicare Part B [id number] Unknown Unkno wn Family history Sister Diagnosis [...] Description Effective Dates Tobacco history SNOMED CT: 381178624 Never smoker 05/28/[address]: 261094573 Never drinks alcohol 2020 Allergies, Adverse Reactions, Alerts Substance Reaction Codes Entered Date Inactivated Date Status NO KNOWN ALLERGIES Unknown 05/28/2021 No Inactive Date Active Problems Condition Codes Effective Dates Condition Status Diabetes Unknown 05/28/2021 Active Hyperlipidemia Unknown 05/28/2021 Active Hypertension Unknown 05/28/2021 Active Essential hypertension ICD-10: I10 ICD-9: 401.9 05/28/2021 Active History of [place] (myocardial infarction) ICD-10: I25.2 ICD-9: 412 05/28/2021 Active Hyperlipidemia ICD-10: f33.1 ICD-9: 272.4 05/28/2021 Active Screening for malignant neoplasm of colon ICD-10: Z12. 11 ICD-9: V76.51 05/28/2021 Active Screening for prostate cancer ICD-10: Z12.5 ICD-9: V76.44 05/28/2021 Active Type 2 diabetes mellitus with hyperglycemia ICD-10: E1 1.65 ICD-9: 250.00 05/28/2021 Active Medications Medication Codes Instructions Start Date Stop Date Status Fill Instructions glyburide 5 mg tablet RxNorm: 060851 Take 1 Tablet(s) Oral every da y 06/01/2021 11/27/2021 Active metformin 850 mg tablet RxNorm: 573084 Take 1 Tablet(s) Oral ev modest[place] day 06/01/2021 11/27/2021 Active omeprazole 40 mg capsule,delayed release RxNorm: 20020826 Take 1 Capsule(s) Oral every day 06/01/2021 11/27/2021 Active metoprolol succinate ER 50 mg tablet,extended release 24 hr RxNorm: 520395 Take 1 Tablet(s) Oral every day 05/28/2021 No Stop Date Active atorvastatin 20 mg tablet RxNorm: 843709 Take 1 Tablet(s) Oral every day 05/28/2021 No Stop Date Active metformin 850 mg tablet RxNorm: 138170 Take 1 Tablet(s) Oral ev [place] day 05/28/2021 06/01/2021 Inactive lisinopril 20 mg tablet RxNorm: 724955 Take 1 Tablet(s) Oral ev [place] day 05/28/2021 No Stop Date Active glyburide 5 mg tablet RxNorm: 760674 Take 1 Tablet(s) Oral every da y 05/28/2021 06/01/2021 Inactive aspirin 81 mg tablet,delayed release RxNorm: 872993 Misael e 1 Tablet(s) Oral every day 05/28/2021 No Stop Date Active Farxiga 10 mg tablet RxNorm: 9977012 Take 1 Tablet(s) Oral every da y 05/28/2021 No Stop Date Active omeprazole 40 mg capsule,delayed release RxNorm: 20020826 Take 1 Capsule(s) Oral every day 05/28/2021 06/01/2021 Inactive Centrum Silver Men oral RxNorm: oral 05/28/2021 Activ e Medication Administered No Medication Administered data Immunizations Vaccine Codes Date Status Covid-19 CVX: 207 09/24/2020 Covid-19 CVX: 08/27/2020 Influenza CVX: 135 01/16/2020 Tetanus/Diptheria CVX: 09 01/15/2017 Results No Results data Procedures No Procedures data Vital Signs Date Vital 05/28/2021 Blood Pressure 1: 132/74 Code: 8480-6 BMI: 30.9 Code: 94749-6 Heart Rate 1: 58 bpm Height: 6'1" Code: 8302-2 SpO2: 98% Temperature: 3 6.3 (C) / 97.3 (F) Weight: 234 lbs Code: 53004-4 Functional Status No Functional Status data Reason For Visit Reason For Visit Effective Dates Notes well man exam (65+ years) 05/28/2021 Encounters Encounter Performer Location Codes Date () OFFICE VISIT, NEW - LEVEL 4 Diagnosis: Essential hypertension[ICD10: I10] Diagnosis: Hyperlipidemia[ICD10: f33.1] Diagnosis: Type 2 diabetes mellitus with hyperglycemia[ICD10: E11.65] Diagnosis: Screening for prostate cancer[ICD10: Z12.5] Diagnosis: Screening for malignant neoplasm of colon[ICD10: Z12.11] [facility] CPT-4: 80075 05/28/2021 Plan of Care Planned Activity Notes [...] release to get previous records. History of [place] - pt denies any cardiac symptoms. Follows [...] obtain at next lab draw. 05/28/2021 [facility]ment: [facility] [phone] [id number] [facility] 05/28/2021 Patient Education: Patient Medication Summary Completed 05/28/2021 Patient Education: Hypertension Completed 05/28/2021 Care Plan: Lipid Pending 05/28/2021 Care Plan: %Hba1C LOINC : 69154-6 Pending 05/28/2021 Care Plan: Tsh Pending 05/28/2021 [...] release to get previous records. History of [place] - pt denies any cardiac symptoms. Follows [...]
--- OUTSIDE RECORDS SUMMARY | 2021-06-08 11:26 | XMS REPORT | CCD ---
Author Author Roney Michelle Organization Darya Castillo MD, [facility] Address [address] [place] [address] Phone Care Team Providers Care Shot Blast Equipment Operator Name Role Phone Darya Castillo PP Unavailable CCM Unavailable Summary Purpose Interface Exchange Insurance Providers Payer name Policy type / Coverage type Covered alliance party ID Effective Begin Date Effective End Date WPS Medicare Part B Medicare Part B [id number] Unknown Unkno wn Family history Sister Diagnosis [...] Description Effective Dates Tobacco history SNOMED CT: 325707241 Never smoker 05/28/[address]: 855117355 Never drinks alcohol 2020 Allergies, Adverse Reactions, Alerts Substance Reaction Codes Entered Date Inactivated Date Status NO KNOWN ALLERGIES Unknown 05/28/2021 No Inactive Date Active Problems Condition Codes Effective Dates Condition Status Diabetes Unknown 05/28/2021 Active Hyperlipidemia Unknown 05/28/2021 Active Hypertension Unknown 05/28/2021 Active Essential hypertension ICD-10: I10 ICD-9: 401.9 05/28/2021 Active History of [place] (myocardial infarction) ICD-10: I25.2 ICD-9: 412 05/28/2021 Active Hyperlipidemia ICD-10: f33.1 ICD-9: 272.4 05/28/2021 Active Screening for malignant neoplasm of colon ICD-10: Z12. 11 ICD-9: V76.51 05/28/2021 Active Screening for prostate cancer ICD-10: Z12.5 ICD-9: V76.44 05/28/2021 Active Type 2 diabetes mellitus with hyperglycemia ICD-10: E1 1.65 ICD-9: 250.00 05/28/2021 Active Medications Medication Codes Instructions Start Date Stop Date Status Fill Instructions metoprolol succinate ER 50 mg tablet,extended release 24 hr RxNorm: 610479 Take 1 Tablet(s) Oral every day 05/28/2021 No Stop Date Active atorvastatin 20 mg tablet RxNorm: 659651 Take 1 Tablet(s) Oral every day 05/28/2021 No Stop Date Active metformin 850 mg tablet RxNorm: 300786 Take 1 Tablet(s) Oral ev modest[place] day 05/28/2021 No Stop Date Active lisinopril 20 mg tablet RxNorm: 241259 Take 1 Tablet(s) Oral ev modest[place] day 05/28/2021 No Stop Date Active glyburide 5 mg tablet RxNorm: 172616 Take 1 Tablet(s) Oral every da y 05/28/2021 No Stop Date Active aspirin 81 mg tablet,delayed release RxNorm: 813051 Misael e 1 Tablet(s) Oral every day 05/28/2021 No Stop Date Active Farxiga 10 mg tablet RxNorm: 1005035 Take 1 Tablet(s) Oral every da y 05/28/2021 No Stop Date Active omeprazole 40 mg capsule,delayed release RxNorm: 411985 Take 1 Capsule(s) Oral every day 05/28/2021 No Stop Date Active Centrum Silver Men oral RxNorm: oral 05/28/2021 Activ e Medication Administered No Medication Administered data Immunizations Vaccine Codes Date Status Covid-19 CVX: 207 09/24/2020 Covid-19 CVX: 207 08/27/2020 Influenza CVX: 135 01/16/2020 Tetanus/Diptheria CVX: 09 01/15/2017 Results No Results data Procedures No Procedures data Vital Signs Date Vital 05/28/2021 Blood Pressure 1: 132/74 Code: 8480-6 BMI: 30.9 Code: 46168-5 Heart Rate 1: 58 bpm Height: 6'1" Code: 8302-2 SpO2: 98% Temperature: 3 6.3 (C) / 97.3 (F) Weight: 234 lbs Code: 32510-2 Functional Status No Functional Status data Reason [...] colon[ICD10: Z12.11] [facility] CPT-4: 66418 05/28/2021 Plan of Care Planned Activity Notes [...] release to get previous records. History of [place] - pt denies any cardiac symptoms. Follows [...] will obtain at next lab draw. 05/28/2021 Patient Education: Patient Medication Summary Completed 05/28/2021 Patient Education: Hypertension Completed 05/28/2021 Care Plan: Lipid Pending 05/28/2021 Care Plan: %Hba1C LOINC : 23409-0 Pending 05/28/2021 Care Plan: Tsh Pending 05/28/2021 [...] release to get previous records. History of [place] - pt denies any cardiac symptoms. Follows [...]
== END 2021-06-06 02:19 | disposition home or self-care (01) ==
LOC: EDUNIT# 23:32 → ER 23:35
DX: R00.2 Palpitations (principal); E11.65 Type 2 diabetes mellitus with hyperglycemia; I10 Essential (primary) hypertension; Z72.0 Tobacco use; Z79.82 Long term (current) use of aspirin
CPT/HCPCS: 36415; 71045; 80053; 82550; 82553; 83735; 83880; 84484; 85025; 85610; 85730; 93005; 93041

== ENCOUNTER 2021-07-16 05:29 | Outpatient (RCR) | payer MEDICARE ==
[~2021-07-16] VITALS: Ht 185.4 cm; Wt 107.0 kg
[~2021-07-16 05:29] MED LIST changes: +POLY17PO6 PO; +SAW1CAPS8 PO
== END 2021-07-16 08:57 | disposition home or self-care (01) ==
LOC: PREOP 05:29
PROVIDERS: ATTEND Surgery
DX: Z01.812 Encounter for preprocedural laboratory examination (principal); K29.70 Gastritis, unspecified, without bleeding; Z20.822 Contact with and (suspected) exposure to COVID-19
CPT/HCPCS: 87635

== ENCOUNTER 2021-07-20 07:16 | Day surgery (SDC) | payer MEDICARE ==
[~2021-07-20] VITALS: Ht 185 cm; Wt 107.0 kg
--- OUTSIDE RECORDS SUMMARY | 2021-07-20 07:19 | XMS REPORT | CCD ---
Author Author Roney Michelle Organization Darya Castillo MD, [facility] Address [address] [place] [address] Phone Care Team Providers Care Golf Course Architect Name Role Phone Darya Castillo PP Unavailable CCM Unavailable Summary Purpose Interface Exchange Insurance Providers Payer name Policy type / Coverage type Covered libertarian ID Effective Begin Date Effective End Date WPS Medicare Part B Medicare Part B [id number] Unknown Unkno wn Family history Sister Diagnosis [...] Description Effective Dates Tobacco history SNOMED CT: 095778772 Never smoker 05/28/[address]: 759620371 Never drinks alcohol 2020 Allergies, Adverse Reactions, Alerts Substance Reaction Codes Entered Date Inactivated Date Status NO KNOWN ALLERGIES Unknown 05/28/2021 No Inactive Date Active Problems Condition Codes Effective Dates Condition Status Diabetes Unknown 05/28/2021 Active Hyperlipidemia Unknown 05/28/2021 Active Hypertension Unknown 05/28/2021 Active Essential hypertension ICD-10: I10 ICD-9: 401.9 05/28/2021 Active History of MA (myocardial infarction) ICD-10: I25.2 ICD-9: 412 05/28/2021 [...] Fill Instructions glyburide 5 mg tablet RxNorm: 602811 Take 1 Tablet(s) Oral every da y 06/01/2021 11/27/2021 Active metformin 850 mg tablet RxNorm: 157414 Take 1 Tablet(s) Oral ev modesta day 06/01/2021 11/27/2021 Active omeprazole 40 mg capsule,delayed release RxNorm: 514217 Take 1 Capsule(s) Oral every day 06/01/2021 11/27/2021 Active metoprolol succinate ER 50 mg tablet,extended release 24 hr RxNorm: 059886 Take 1 Tablet(s) Oral every day 05/28/2021 No Stop Date Active atorvastatin 20 mg tablet RxNorm: 689251 Take 1 Tablet(s) Oral every day 05/28/2021 No Stop Date Active lisinopril 20 mg tablet RxNorm: 442471 Take 1 Tablet(s) Oral ev modesta day 05/28/2021 No Stop Date Active aspirin 81 mg tablet,delayed release RxNorm: 655396 Misael e 1 Tablet(s) Oral every day 05/28/2021 No Stop Date Active Farxiga 10 mg tablet RxNorm: 7424156 Take 1 Tablet(s) Oral every da y 05/28/2021 No Stop Date Active metformin 850 mg tablet RxNorm: 487475 Take 1 Tablet(s) Oral ev modesta day 05/28/2021 06/01/2021 Inactive glyburide 5 mg tablet RxNorm: 948684 Take 1 Tablet(s) Oral every da y 05/28/2021 06/01/2021 Inactive omeprazole 40 mg capsule,delayed release RxNorm: 480246 Take 1 Capsule(s) Oral every day 05/28/2021 [...] 1: 132/74 Code: 8480-6 BMI: 30.9 Code: 19479-3 Heart Rate 1: 58 bpm Height: 6'1" Code: 8302-2 SpO2: 98% Temperature: 3 6.3 (C) / 97.3 (F) Weight: 234 lbs Code: 90747-5 Functional Status No Functional Status data Reason [...] colon[ICD10: Z12.11] [facility] CPT-4: 35199 05/28/2021 Plan of Care Planned Activity Notes [...] release to get previous records. History of MA - pt denies any cardiac symptoms. Follows [...] draw. 05/28/2021 [facility]ment[facility] [phone] [id number] [facility] 05/28/2021 Patient Education: Patient Medication Summary Completed 05/28/2021 Patient Education: Hypertension Completed 05/28/2021 Care Plan: Lipid Pending 05/28/2021 Care Plan: %Hba1C LOINC : 65509-3 Pending 05/28/2021 Care Plan: Tsh Pending 05/28/2021 [...] release to get previous records. History of MA - pt denies any cardiac symptoms. Follows [...]
--- OUTSIDE RECORDS SUMMARY | 2021-07-20 07:19 | XMS REPORT | CCD ---
Author Author Roney Michelle Organization Darya Castillo MD, [facility] Address [address] [place] [address] Phone Care Team Providers Care Brake Operator Name Role Phone Darya Castillo PP Unavailable CCM Unavailable Summary Purpose Interface Exchange Insurance Providers Payer name Policy type / Coverage type Covered republican ID Effective Begin Date Effective End Date WPS Medicare Part B Medicare Part B [id number] Unknown Unkno wn Family history Sister Diagnosis [...] Description Effective Dates Tobacco history SNOMED CT: 388886816 Never smoker 05/28/[address]: 077645368 Never drinks alcohol 2020 Allergies, Adverse Reactions, [...] Start Date Stop Date Status Fill Instructions lisinopril 20 mg tablet RxNorm: 860887 Take 1 Tablet(s) Oral ev modesta day 06/15/2021 12/11/2021 Active glyburide 5 mg tablet RxNorm: 210625 Take 1 Tablet(s) Oral every da y 06/01/2021 11/27/2021 Active metformin 850 mg tablet RxNorm: 119296 Take 1 Tablet(s) Oral ev modesta day 06/01/2021 11/27/2021 Active omeprazole 40 mg capsule,delayed release RxNorm: 471692 Take 1 Capsule(s) Oral every day 06/01/2021 11/27/2021 Active metoprolol succinate ER 50 mg tablet,extended release 24 hr RxNorm: 418022 Take 1 Tablet(s) Oral every day 05/28/2021 No Stop Date Active atorvastatin 20 mg tablet RxNorm: 708666 Take 1 Tablet(s) Oral every day 05/28/2021 No Stop Date Active lisinopril 20 mg tablet RxNorm: 214333 Take 1 Tablet(s) Oral ev modesta day 05/28/2021 06/15/2021 Inactive aspirin 81 mg tablet,delayed release RxNorm: 375351 Misael e 1 Tablet(s) Oral every day 05/28/2021 No Stop Date Active Farxiga 10 mg tablet RxNorm: 6512961 Take 1 Tablet(s) Oral every da y 05/28/2021 No Stop Date Active metformin 850 mg tablet RxNorm: 667432 Take 1 Tablet(s) Oral ev modesta day 05/28/2021 06/01/2021 Inactive glyburide 5 mg tablet RxNorm: 284595 Take 1 Tablet(s) Oral every da y 05/28/2021 06/01/2021 Inactive omeprazole 40 mg capsule,delayed release RxNorm: 827184 Take 1 Capsule(s) Oral every day 05/28/2021 [...] 1: 132/74 Code: 8480-6 BMI: 30.9 Code: 53941-2 Heart Rate 1: 58 bpm Height: 6'1" Code: 8302-2 SpO2: 98% Temperature: 3 6.3 (C) / 97.3 (F) Weight: 234 lbs Code: 76537-6 Functional Status No Functional Status data Reason For Visit Reason For Visit Effective Dates Notes well man exam (65+ years) 05/28/2021 Encounters Encounter Performer Location Codes Date () OFFICE VISIT, NEW - LEVEL 4 Diagnosis: Essential hypertension[ICD10: I10] Diagnosis: Hyperlipidemia[ICD10: f33.1] Diagnosis: Type 2 diabetes mellitus with hyperglycemia[ICD10: E11.65] Diagnosis: Screening for prostate cancer[ICD10: Z12.5] Diagnosis: Screening for malignant neoplasm of colon[ICD10: Z12.11] [facility] CPT-4: 48054 05/28/2021 Plan of Care Planned Activity Notes [...] draw. 05/28/2021 [facility]ment: [facility] [phone] [facility] [facility] 05/28/2021 Patient Education: Patient Medication Summary Completed 05/28/2021 Patient Education: Hypertension Completed 05/28/2021 Care Plan: Lipid Pending 05/28/2021 Care Plan: %Hba1C LOINC : 24935-7 Pending 05/28/2021 Care Plan: Tsh Pending 05/28/2021 [...]
[2021-07-20] MEDS ORDERED: LACTATED RINGERS 1,000 ML IV ONE (07:24)
[2021-07-20] MEDS ORDERED: LACTATED RINGERS 1,000 ML IV STA (07:29)
[2021-07-20] MEDS ORDERED: HURRICAINE EXT TUBE (BENZOCAINE) XX PRN (07:30)
[2021-07-20 07:45] VITALS: BP 140/75
[2021-07-20] MEDS ORDERED: MIDAZOLAM 2 MG/2 ML (VERSED) VIAL ONE (07:56)
[2021-07-20] MEDS ORDERED: PROPOFOL INJECTION 50 ML IV ONE (07:57)
--- NOTE | 2021-07-20 08:16 | Progress Note-Pre Operative ---
Pre-Operative Progress Note H&P Reviewed The H&P was reviewed, patient examined and no changes noted. Time Seen by Provider: 08:13 Date H&P Reviewed: Jul 20, 2021 Time H&P Reviewed: 08:13 Pre-Operative Diagnosis: +REJI Estrada ERIC B DO Jul 20, 2021 08:16
[2021-07-20 09:30] VITALS: BP 123/70
[2021-07-20 09:35] VITALS: BP 125/72
[2021-07-20 09:40] VITALS: BP 140/73
[2021-07-20 09:45] VITALS: BP 140/73
--- NOTE | 2021-07-20 10:20 | Progress Note-Post Operative ---
Post-Operative Progess Note Surgeon (s)/Station Chief (s) Surgeon KONRAD FALK DO Station Chief: Damaos Rivero, AMANDAII Pre-Operative Diagnosis +Cologuard, GERD Post-Operative Diagnosis Gastritis Gastric ulcer hiatal hernia Polyps diverticula int hemorrhoids Procedure & Operative Findings Date of Procedure 07/20/21 Procedure Performed/Findings EGD with bx Colon with snare Colon with cold bx PROCEDURE NOTE: After informed consent was obtained, the patient was brought to the endoscopy suite, placed in bed in left lateral decubitus position. He was administered IV sedation by the GUARD MANAGER who then monitored vitals the entire time, heart rate, blood pressure and pulse ox and the scope was inserted down the mouth through the esophagus into the stomach. Pushed into the stomach and past the antrum into the duodenum; duodenum looked good. Pulled back and the antrum appeared to have some gastritis and did a biopsy of the antrum. Then retroflexed the scope and saw a 2cm hiatal hernia as well as some ulcers in the body. Took a picture of this and then did a biopsy of the body of the stomach and one of the ulcer. Then pulled the scope into the GE junction, took another picture of the hiatal hernia and then did a biopsy of the GE junction. Pushed the scope back into the stomach, suctioned all the air out of the stomach. At this point pulled the scope up the esophagus and out the mouth. Switched camera, switched gloves, went down below and started the colonoscopy. Pushed all the way into about 140 cm to get all the way to cecum. In the Cecum took a picture of the appendiceal orifice, noted the ileocecal valve and able to get into the terminal ileum and take a picture. Next slowly withdrew the scope, insufflating to look circumferentially at the julio starting in the cecum, up the ascending colon to the hepatic flexure, then down the transverse colon to the splenic flexure. Turned into the descending colon and saw 3 small polyps; elected to do a cold biopsy, because they were small and flat. Down into the sigmoid and saw a larger polyp, elected to do a snare to completely remove it. Finally into the rectum and retroflexed in the rectal vault, saw some minimal internal hemorrhoids and took a picture of this. Had also taken a picture of diverticula. The patient tolerated the procedure and he recovered in the endoscopy suite. Anesthesia Type IV sedation by GUARD MANAGER Estimated Blood Loss Estimated blood loss (mL): scant Specimens/Packing Specimens Removed antral bx Body of stomach bx ulcer bx GE jxn bx Desc colon polyp x3 Sigmoid polyp KONRAD FALK DO Jul 20, 2021 10:20
[2021-07-20] MEDS ORDERED: SUCR1TAB36 PO (10:23)
--- NOTE | 2021-07-20 10:23 | Endoscopy Discharge Instruct ---
Endo Procedure/Findings Findings 1.: Gastric Ulcer, Gastritis 2.: Hiatal Hernia 3.: Polyp 4.: Diverticulosis, Internal Hemorrhoids Discharge Instructions - Activity: You might feel a little sleepy until tomorrow. This is due to the medicine you received to relax you. Until tomorrow, you should: NOT drive a car, operate machinery or power tools. NOT drink any alcoholic beverages. NOT make any important decisions or sign importortant papers. Do not return to work until tomorrow, unless otherwise instructed. Resume previous activities tomorrow. Diet: Start by taking liquids. If you tolerate liquids, advance to solid food. 1.: Colonscopy in 3 years 2.: Other Recommendation (EGD in 6 months) Notify Physician - If you experience excessive bleeding, unusual abdominal pain, fever, or chest pain, contact your doctor immediately. KONRAD FALK DO Jul 20, 2021 10:23
[2021-07-20 10:26] VITALS: BP 141/72
--- NOTE | 2021-07-20 10:27 | Anesthesia-General Post-Op ---
MAC Patient Condition Mental Status/LOC: Same as Preop Cardiovascular: Satisfactory Nausea/Vomiting: Absent Respiratory: Satisfactory Pain: Controlled Complications: Absent Post Op Complications Complications None Follow Up Care/Instructions Patient Instructions None needed. Anesthesiology Discharge Order Discharge Order Patient is doing well, no complaints, stable vital signs, no apparent adverse anesthesia problems. No complications reported per nursing. STEVENSON MAYS CRNA Jul 20, 2021 10:27
== END 2021-07-20 10:35 | disposition home or self-care (01) ==
LOC: ENDO 07:16
PROVIDERS: ATTEND Surgery
DX: K21.00 Gastro-esophageal reflux disease with esophagitis, without bleeding (principal); D12.5 Benign neoplasm of sigmoid colon; D12.4 Benign neoplasm of descending colon; K29.50 Unspecified chronic gastritis without bleeding; K25.9 Gastric ulcer, unspecified as acute or chronic, without hemorrhage or perforation; K44.9 Diaphragmatic hernia without obstruction or gangrene; K57.30 Diverticulosis of large intestine without perforation or abscess without bleeding; K64.8 Other hemorrhoids; R19.5 Other fecal abnormalities; I10 Essential (primary) hypertension; I25.10 Atherosclerotic heart disease of native coronary artery without angina pectoris; E78.5 Hyperlipidemia, unspecified; E11.9 Type 2 diabetes mellitus without complications; R79.1 Abnormal coagulation profile; Z79.84 Long term (current) use of oral hypoglycemic drugs; Z79.899 Other long term (current) drug therapy; Z79.82 Long term (current) use of aspirin; Z87.891 Personal history of nicotine dependence; Z90.89 Acquired absence of other organs; Z98.52 Vasectomy status; Z83.3 Family history of diabetes mellitus; Z80.0 Family history of malignant neoplasm of digestive organs

== ENCOUNTER → 2021-09-27 | Outpatient (CLI) | payer MEDICARE ==
[~2021-09-27] MED LIST changes: +SUCR1TAB36 PO
[2021-09-27 08:12] LABS: BASOPHILS % (AUTO) 1 % (0-10); EOSINOPHILS # (AUTO) 0.3 10^3/uL (0.0-0.3); EOSINOPHILS % (AUTO) 4 % (0-10); HEMATOCRIT 46 % (40-54); HEMOGLOBIN 15.5 g/dL (13.3-17.7); LYMPHOCYTES # (AUTO) 2.2 10^3/uL (1.0-4.0); LYMPHOCYTES % (AUTO) 32 % (12-44); MEAN CORPUSCULAR HEMOGLOBIN 30 pg (25-34); MEAN CORPUSCULAR HGB CONC 34 g/dL (32-36); MEAN CORPUSCULAR VOLUME 89 fL (80-99); MEAN PLATELET VOLUME 10.3 fL (9.0-12.2); MONOCYTES # (AUTO) 0.5 10^3/uL (0.0-1.0); MONOCYTES % (AUTO) 7 % (0-12); NEUTROPHILS # (AUTO) 3.9 10^3/uL (1.8-7.8); NEUTROPHILS % (AUTO) 57 % (42-75); PLATELET COUNT 161 10^3/uL (130-400); WHITE BLOOD COUNT 6.8 10^3/uL (4.3-11.0)
[2021-09-27 08:20] LABS: ALBUMIN 4.3 GM/DL (3.2-4.5); POTASSIUM 4.2 MMOL/L (3.6-5.0)
[2021-09-27 08:21] LABS: CALCIUM 9.8 MG/DL (8.5-10.1)
[2021-09-27 08:26] LABS: CREATININE SERUM 0.96 MG/DL (0.60-1.30)
== END ==
LOC: LAB 07:46
PROVIDERS: ATTEND Family Medicine
DX: Z12.5 Encounter for screening for malignant neoplasm of prostate (principal); E11.65 Type 2 diabetes mellitus with hyperglycemia; F33.1 Major depressive disorder, recurrent, moderate; I10 Essential (primary) hypertension
CPT/HCPCS: 80053; 80061; 83036; 84443; 85025; G0103; 36415; 84153; 84439

== ENCOUNTER → 2021-10-21 | Outpatient (CLI) | payer MEDICARE ==
[~2021-10-21] MED LIST changes: +CATHETER FLUSH 10 ML SYR IVP PRN
[2021-10-21 09:22] VITALS: BP 137/79
--- NOTE | 2021-10-21 13:51 | Cardiology Stress Test Report ---
Stress Test Report Date of Procedure/Referring: Date of Procedure: Oct 21, 2021 PCP Lorenza Foster MD Admitting Physician Darya Castillo MD Indications: HTN Baseline Heart Rate: 50 Baseline Blood Pressure: Blood Pressure Systolic: 137 Blood Pressure Diastolic: 79 Vital Signs Date Time Temp Pulse Resp B/P (MAP) Pulse Ox O2 Delivery O2 Flow Rate FiO2 10/21/21 09:22 50 137/79 (98) 97 Baseline Vital Signs Vital Signs Date Time Temp Pulse Resp B/P (MAP) Pulse Ox O2 Delivery O2 Flow Rate FiO2 10/21/21 09:22 50 137/79 (98) 97 Baseline EKG: Baseline EKG: Sinus rhythm with first-degree AV block and incomplete right bundle branch Summary: After explaining the procedure and details to the patient, he signed the consent and was brought to the stress nuclear laboratory. Patient exercised on standard Phillip protocol, EKG, heart rate and blood pressure were monitored continuously, resting and stress doses of radio tracer were injected, imaging was acquired and reviewed in the short axis, horizontal long axis and vertical long axis views Patient was able to exercise for a total of 7.30 minutes on Phillip protocol, METs 9.1 Maximum heart rate 132 Maximum blood pressure 191/60 Stress EKG, Minimal nondiagnostic changes Recovery EKG, Return to baseline TID: 0.92 SSS: 0 SDS: 0 EF: 50 Conclusion: 1. Good exercise tolerance for 7 minutes and 30 seconds, 9.1 METS achieving 86% of maximal expected heart rate 2. Baseline EKG showing sinus rhythm with extensive first-degree AV block and incomplete right bundle branch block and occasional APCs. Appropriate heart rate response to exercise return to baseline during recovery 3. Hypertensive response to exercise with peak blood pressure 191/60 return to baseline during recovery 4. Nondiagnostic EKG changes with exercise return to baseline during recovery 5. Diaphragmatic attenuation with no significant ischemia or infarction on SPECT images 6. Normal left ventricular size, EF 50% LORENZA FOSTER MD Oct 21, 2021 13:51
== END ==
LOC: CARD 07:45
PROVIDERS: ATTEND Internal Medicine Cardiovascular Disease
DX: I10 Essential (primary) hypertension (principal)
CPT/HCPCS: 78452; 93017; A9502

== ENCOUNTER 2022-02-10 07:06 | Outpatient (RCR) | payer MEDICARE ==
[~2022-02-10] VITALS: Ht 185.4 cm; Wt 104.2 kg
[~2022-02-10 07:06] MED LIST changes: -CATHETER FLUSH 10 ML SYR IVP PRN
[2022-02-10] MEDS ORDERED: ATOR20TA66 PO (09:25)
[2022-02-10] MEDS ORDERED: METO50TA7 PO (09:25)
== END 2022-02-14 | disposition home or self-care (01) ==
LOC: PREOP 07:06 → EDSTATUS 13:30 → PREOP 02-14 09:43
PROVIDERS: ATTEND Surgery
DX: Z01.818 Encounter for other preprocedural examination (principal)

== ENCOUNTER 2022-02-22 09:08 | Day surgery (SDC) | payer MEDICARE ==
[~2022-02-22] VITALS: Ht 185.4 cm; Wt 104.2 kg
[~2022-02-22 09:08] MED LIST changes: +ATOR20TA66 PO; +METO50TA7 PO
[2022-02-22] MEDS ORDERED: LACTATED RINGERS 1,000 ML IV STA (09:18)
--- NOTE | 2022-02-22 09:28 | Progress Note-Pre Operative ---
Pre-Operative Progress Note Date of Available H&P: Feb 02, 2022 Date H&P Reviewed: Feb 22, 2022 Time H&P Reviewed: 09:27 History & Physical: H&P Reviewed, Patient Examed, No changes noted Pre-Operative Diagnosis: Erosive Esophagitis KONRAD FALK DO Feb 22, 2022 09:28
[2022-02-22] MEDS ORDERED: HURRICAINE EXT TUBE (BENZOCAINE) XX PRN (09:30)
[2022-02-22 09:50] VITALS: BP 126/56
[2022-02-22] MEDS ORDERED: MIDAZOLAM 2 MG/2 ML (VERSED) VIAL ONE (10:58)
[2022-02-22] MEDS ORDERED: PROPOFOL INJECTION 50 ML IV ONE (10:58)
--- NOTE | 2022-02-22 11:15 | Progress Note-Post Operative ---
Post-Operative Progess Note Surgeon (s)/Statistical Secretary (s) Surgeon KONRAD FALK DO Statistical Secretary: none Pre-Operative Diagnosis Erosive Esophagitis Post-Operative Diagnosis Gastritis Small hiatal hernia Gastric Polyp Procedure & Operative Findings Date of Procedure 02/22/22 Procedure Performed/Findings EGD with bx EGD with removal of polyp by hot bx PROCEDURE NOTE: After informed consent was obtained, the patient was brought to the endoscopy suite, placed in bed in left lateral decubitus position. He was administered IV sedation by the LEAN MANUFACTURING SPECIALIST who then monitored vitals the entire time, heart rate, blood pressure and pulse ox and the scope was inserted down the mouth through the esophagus into the stomach. Pushed into the stomach and past the antrum into the duodenum; duodenum looked good. Pulled back and did a biopsy of antrum and then noted some questionable inflammation of the body and did a biopsy of the body of stomach. Then retroflexed the scope and saw a very small hiatal hernia, took a picture of this and noted a polyp. Elected to do a hot biopsy to completely remove the polyp. Then pulled the scope into the GE junction. Took a biopsy of the GE junction. Pushed the scope back into the stomach, suctioned all the air out of the stomach. At this point pulled the scope up the esophagus and out the mouth. The patient tolerated the procedure, and he recovered in endoscopy suite. Anesthesia Type IV sedation by LEAN MANUFACTURING SPECIALIST Estimated Blood Loss Estimated blood loss (mL): scant Specimens/Packing Specimens Removed antral bx body of stomach bx GE jxn bx Gastric polyp KONRAD FALK DO Feb 22, 2022 11:15
[2022-02-22 11:16] VITALS: BP 112/62
--- NOTE | 2022-02-22 11:16 | Endoscopy Discharge Instruct ---
Endo Procedure/Findings Findings 1.: Gastritis 2.: Hiatal Hernia 3.: Polyp (Gastric) Discharge Instructions - Activity: You might feel a little sleepy until tomorrow. This is due to the medicine you received to relax you. Until tomorrow, you should: NOT drive a car, operate machinery or power tools. NOT drink any alcoholic beverages. NOT make any important decisions or sign importortant papers. Do not return to work until tomorrow, unless otherwise instructed. Resume previous activities tomorrow. Diet: Start by taking liquids. If you tolerate liquids, advance to solid food. 1.: EGD in 3 years Notify Physician - If you experience excessive bleeding, unusual abdominal pain, fever, or chest pain, contact your doctor immediately. KONRAD FALK DO Feb 22, 2022 11:16
[2022-02-22 11:21] VITALS: BP 125/68
[2022-02-22 11:26] VITALS: BP 112/62
[2022-02-22 11:30] VITALS: BP 112/62
[2022-02-22 11:46] VITALS: BP 112/62
--- NOTE | 2022-02-22 13:28 | Anesthesia-General Post-Op ---
MAC Patient Condition Mental Status/LOC: Same as Preop Cardiovascular: Satisfactory Nausea/Vomiting: Absent Respiratory: Satisfactory Pain: Controlled Complications: Absent Post Op Complications Complications None Follow Up Care/Instructions Patient Instructions None needed. Anesthesiology Discharge Order Discharge Order Patient is doing well, no complaints, stable vital signs, no apparent adverse anesthesia problems. No complications reported per nursing. STEVENSON MAYS CRNA Feb 22, 2022 13:28
[2022-03-08] MEDS ORDERED: CLOP75TA28 PO (13:55)
== END 2022-02-22 11:48 | disposition home or self-care (01) ==
LOC: ENDO 09:08
PROVIDERS: ATTEND Surgery
DX: K31.7 Polyp of stomach and duodenum (principal); K31.89 Other diseases of stomach and duodenum; K29.50 Unspecified chronic gastritis without bleeding; K44.9 Diaphragmatic hernia without obstruction or gangrene; Z87.891 Personal history of nicotine dependence
CPT/HCPCS: 82947; 88305

== ENCOUNTER 2022-03-07 17:48 | Observation (INO) | payer MEDICARE ==
[~2022-03-07] VITALS: Ht 185.5 cm; Wt 102.3 kg
[2022-03-07 18:23] LABS: ALBUMIN 4.6 GM/DL (3.2-4.5); BASOPHILS % (AUTO) 0 % (0-10); CHLORIDE 102 MMOL/L (98-107); EOSINOPHILS # (AUTO) 0.2 10^3/uL (0.0-0.3); EOSINOPHILS % (AUTO) 2 % (0-10); HEMATOCRIT 44 % (40-54); LYMPHOCYTES # (AUTO) 2.2 10^3/uL (1.0-4.0); LYMPHOCYTES % (AUTO) 28 % (12-44); MEAN CORPUSCULAR HEMOGLOBIN 30 pg (25-34); MEAN CORPUSCULAR HGB CONC 34 g/dL (32-36); MEAN CORPUSCULAR VOLUME 89 fL (80-99); MEAN PLATELET VOLUME 10.5 fL (9.0-12.2); MONOCYTES # (AUTO) 0.6 10^3/uL (0.0-1.0); MONOCYTES % (AUTO) 8 % (0-12); NEUTROPHILS # (AUTO) 4.9 10^3/uL (1.8-7.8); NEUTROPHILS % (AUTO) 61 % (42-75); PLATELET COUNT 175 10^3/uL (130-400); POTASSIUM 4.4 MMOL/L (3.6-5.0); SODIUM 139 MMOL/L (135-145); WHITE BLOOD COUNT 7.9 10^3/uL (4.3-11.0)
[2022-03-07 18:25] LABS: GLUCOSE 95 MG/DL (70-105); TOTAL PROTEIN 7.8 GM/DL (6.4-8.2)
[2022-03-07 18:26] LABS: CARBON DIOXIDE 25 MMOL/L (21-32)
[2022-03-07 18:27] LABS: BILIRUBIN,TOTAL 0.8 MG/DL (0.1-1.0)
[2022-03-07 18:29] LABS: ALKALINE PHOSPHATASE 70 U/L (40-136); CREATININE SERUM 0.95 MG/DL (0.60-1.30); GFR ESTIMATED 87
[2022-03-07 18:30] LABS: BUN/CREATININE RATIO 15
[2022-03-07 18:31] LABS: FIBRIN DEGRADATION PRODUCTS 0.32 UG/ML (0.00-0.49); INR 0.9 (0.8-1.4)
[2022-03-07 18:32] LABS: ALANINE AMINOTRANSFERASE 18 U/L (0-55)
[2022-03-07 18:34] LABS: BILIRUBIN,URINE NEGATIVE (NEGATIVE); CLARITY,URINE CLEAR; COLOR,URINE YELLOW; GLUCOSE, URINE (UA) 3+ (NEGATIVE); KETONES,URINE TRACE (NEGATIVE); LEUKOCYTE ESTERASE ,URINE NEGATIVE (NEGATIVE); NITRITE,URINE NEGATIVE (NEGATIVE); PROTEIN,URINE NEGATIVE (NEGATIVE)
--- NOTE | 2022-03-07 18:39 | Diagnostic Imaging Report ---
PROCEDURE: CT head wo r/o stroke. TECHNIQUE: Multiple contiguous axial images were obtained through the brain without the use of intravenous contrast. Auto Exposure Controls were utilized during the CT exam to meet ALARA standards for radiation dose reduction. INDICATION: Sudden loss of vision in both eyes while watching TV, atrial fibrillation, hypertension. Assess for possible CVA. COMPARISON: None. FINDINGS: The midline structures are not displaced. Lateral, 3rd and 4th ventricles are normal in size, shape and anatomic position. There is extensive background chronic areas of microvascular ischemic change. Castillo-white differentiation is normal. There is no sulcal effacement. There are no abnormal extra-axial fluid collections or hemorrhage. Basilar cisterns appear normal. Sinuses, orbits and mastoid air cells are unremarkable. Bone windows show no calvarial changes. IMPRESSION: Some mild senescent changes are present. Background chronic areas of microvascular ischemic changes also seen. Overall, no acute findings identified by nonenhanced CT criteria. If symptoms warrant or persist, an MRI may be of further value. Patient may also possibly benefit from a CTA head and neck. Dictated by: Dictated on workstation # [id number]
[2022-03-07 18:43] LABS: BACTERIA,URINE TRACE /HPF; SQUAMOUS EPITHELIAL CELL,UR RARE /HPF
--- NOTE | 2022-03-07 18:43 | Diagnostic Imaging Report ---
INDICATION: Loss of vision, stroke work-up. TECHNIQUE: Single view chest 6:14 PM. CORRELATION STUDY: 06/06/2021. FINDINGS: Heart size borderline enlarged. Slightly more prominent from prior. Vasculature however overall within normal limits. Some of this may be attributed to technique. The lungs are clear with no consolidating infiltrate. There is no significant effusion or pneumothorax. IMPRESSION: Borderline cardiac enlargement without overt failure. Dictated by: Dictated on workstation # [id number]
[2022-03-07] MEDS ORDERED: IOHEXOL 350 MG/ML 100 ML (OMNIPAQUE 350) VIAL IV ONE (19:15)
[2022-03-07] MEDS ORDERED: CATHETER FLUSH 10 ML SYR IV PRN (19:15)
[2022-03-07] MEDS ORDERED: HOLD METFORMIN - RECEIVED CONTRAST 20 ML VIAL IV SCH (19:15)
[2022-03-07] MEDS ORDERED: NS 100 ML (IVPB) BAG IV ONE (19:15)
--- NOTE | 2022-03-07 20:01 | Diagnostic Imaging Report ---
PROCEDURE: CT angiography of the head and CT angiography of the neck with and without contrast. TECHNIQUE: Contiguous noncontrast images were obtained from the skull base through the vertex. After intravenous contrast administration, helical CT angiography of the neck was performed. Source data was reformatted into 3D MIP projections. Delayed post contrast acquisition was also obtained. Auto Exposure Controls were utilized during the CT exam to meet ALARA standards for radiation dose reduction. Also reviewed on separate 3D workstation. INDICATION: 67-year-old male, sudden loss of vision in both eyes while watching TV. History of atrial fibrillation, hypertension and diabetes. Headache now gone. COMPARISON: CT head 03/07/2022. FINDINGS: CTA NECK: Aorta: Aortic arch is limited in evaluation with artifact present. Does appear relatively normal, with standard three vessel branching pattern. Right Common/Internal/External Carotid Artery: Common carotid artery patent. Moderate calcification of the carotid bifurcation without significant stenosis. Internal and external carotid arteries are patent. Left Common/Internal/External Carotid Artery: Common carotid artery is patent. There is moderate calcification of carotid bifurcation without significant stenosis. Internal/external carotid arteries are patent. Vertebral arteries: Relatively codominant bilateral vertebral arteries. There is torturous course of the vertebral arteries with question of mild to moderate amount of narrowing at the origin of the left vertebral artery. Vertebral arteries are otherwise patent to the skull base. Non-vascular: Soft tissues appear unremarkable. Visualized lung apices unremarkable. Mildly advanced degenerative changes in cervical spine. CTA HEAD: Anterior Circulation: The intracranial internal carotid arteries are patent. The bilateral middle cerebral arteries are patent and without stenosis. The anterior cerebral arteries are patent and without stenosis. Posterior Circulation: The bilateral intracranial segments of the vertebral arteries are patent. The basilar artery is patent and without stenosis. The posterior cerebral arteries are patent. Dural venous system appears patent. Post Contrast Head: No concerning enhancement on delayed post-contrast imaging. IMPRESSION: 1. Negative CTA of the head. 2. Mild carotid bifurcation calcification without significant stenosis. No large vessel occlusion. Dictated by: Dictated on workstation # [id number]
[2022-03-07] MEDS ORDERED: CLOPIDOGREL 75 MG (PLAVIX) TABLET PO ONE (21:00)
[2022-03-07] MEDS ORDERED: ASPIRIN 325 MG (5 GR) TABLET PO ONE (21:00)
--- NOTE | 2022-03-07 22:21 | ED Neurological Problem ---
General Chief Complaint: Neurological Problems Stated Complaint: LOSS VISION BI LAT EYES Nursing Triage Note: PT STATES SUDDEN LOSS OF VISION IN BOTH EYES WHILE WATCHING TV, DENIES TRAUMA TO HEAD, DAUGHTER STATES HX OF AFIB, HYPERTENSION, TYPE II DIABETIC, NO HX OF STROKE. DAUGHTER STATES PT WAS SEARCHING FOR WORDS WHEN TALKING ON THE WAY HERE. HEADACHE GONE NOW BUT HAD ONE WHEN THE VISION WAS GONE Source: patient Exam Limitations: no limitations History of Present Illness Date Seen by Provider: Mar 07, 2022 Time Seen by Provider: 17:58 Initial Comments This 67-year-old gentleman presents to the emergency room with complaints of abrupt vision change that started at while he was watching TV. He states the vision loss was brief and complete initially. Then he developed a blurriness which she describes as the appearance of a QR code that affected about 25% of his vision between the 2:00 and 5 o'clock position. This initially affected both eyes but then affected only the right eye. By the time of assessment here symptoms were completely resolved. He had a headache initially but that also resolved quickly. Blood sugar was 88. There seems to be some question about history of A. fib but all I can find in the chart is history of PVCs. He is not anticoagulated. He reports having an episode of left hand numbness a couple of weeks ago that has since resolved.. Allergies and Home Medications Allergies Coded Allergies: No Known Allergies (Unverified Allergy, Unknown, 05/02/17) Patient Home Medication List Home Medication List Reviewed: Yes Atorvastatin Calcium (Atorvastatin Calcium) 20 Mg Tablet, 20 MG PO HS, (Reported) Entered as Reported by: VARSHA MALONE on 02/10/22 0925 Dapagliflozin Propanediol (Farxiga) 10 Mg Tablet, 10 MG PO DAILY, (Reported) Entered as Reported by: MOLLY MA on 05/02/17 1608 Glyburide (Glyburide) 5 Mg Tablet, 5 MG PO DAILY, (Reported) Entered as Reported by: MOLLY MA on 05/02/17 1608 Lisinopril (Lisinopril) 20 Mg Tablet, 20 MG PO DAILY, (Reported) Entered as Reported by: MOLLY MA on 05/02/17 1608 Metformin HCl (Metformin HCl) 850 Mg Tablet, 850 MG PO BID, (Reported) Entered as Reported by: MEETA LYNN on 07/13/21 1134 Metoprolol Succinate (Metoprolol Succinate) 50 Mg Tab.er.24h, 50 MG PO HS, (Reported) Entered as Reported by: VARSHA MALONE on 02/10/22 0925 Multivit-Min/FA/Lycopene/Lut (Centrum Silver Tablet) 1 Each Tablet, 1 TAB PO DAILY, (Reported) Entered as Reported by: MOLLY MA on 05/02/17 1608 Omeprazole (Omeprazole) 40 Mg Capsule.dr, 40 MG PO DAILY, (Reported) Entered as Reported by: MOLLY MA on 05/02/17 1608 Polyethylene Glycol 3350 (Miralax) 17 Gm Powd.pack, 17 GM PO DAILY, (Reported) Entered as Reported by: MEETA LYNN on 07/13/21 1134 Saw Marshall Fruit/Zinc Picoli (Saw Marshall 450 mg Capsule) 1 Each Capsule, 1 EACH PO DAILY, (Reported) Entered as Reported by: MEETA LYNN on 07/13/21 1134 Review of Systems Review of Systems Constitutional: no symptoms reported Eyes: See HPI Ears, Nose, Mouth, Throat: no symptoms reported Respiratory: no symptoms reported Cardiovascular: no symptoms reported Gastrointestinal: no symptoms reported Genitourinary: no symptoms reported Musculoskeletal: no symptoms reported Skin: no symptoms reported Psychiatric/Neurological: See HPI Endocrine: No Symptoms Reported Hematologic/Lymphatic: No Symptoms Reported Past Dkucmtl-Pdfewo-Lytfij Hx Patient Social History Tobacco Use?: No Substance use?: No Alcohol Use?: No Immunizations Up To Date First/Initial COVID19 Vaccinat: 09/07 Second COVID19 Vaccination Devante: 10/05 Third COVID19 Vaccination Date: MAY 2021 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: [employer] Past Medical History Surgery/Hospitalization HX: AMI,HTN,T/A, HERNIA, ORTHO Surgeries: Yes (R WRIST) Abdominal (Hernia repair), Orthopedic, Tonsillectomy, Vasectomy Respiratory: No Cardiac: Yes Coronary Artery Disease, Heart Attack, Hypertension Neurological: No Genitourinary: No Gastrointestinal: Yes (HERNIA REPAIR, EROSIVE GASTRITIS) Abdominal Hernia, Gastroesophageal Reflux Musculoskeletal: No Endocrine: Yes Diabetes, Non-Insulin dep HEENT: No Cancer: No Psychosocial: No Integumentary: No Blood Disorders: No Physical Exam Vital Signs Vital Signs - First Documented 03/07/22 17:57 Temp 36.8 Pulse 60 Resp 18 B/P (MAP) 142/78 (99) Pulse Ox 99 O2 Delivery Room Air Capillary Refill : Less Than 3 Seconds Height, Weight, BMI Height: 6'1.00" Weight: 222lbs. 4.0oz. 100.135225nu; 29.00 BMI Method: General Appearance: WD/WN, no apparent distress HEENT: PERRL/EOMI, normal ENT inspection, TMs normal, pharynx normal Neck: normal inspection; No carotid bruit Respiratory: lungs clear, normal breath sounds, no respiratory distress Cardiovascular: regular rate, rhythm, no edema, no murmur Gastrointestinal: normal bowel sounds, non tender, soft Back: normal inspection Extremities: non-tender, normal inspection, no pedal edema Neurologic/Psychiatric: suction plate roller hand II-XII nml as tested, no motor/sensory deficits, alert, normal mood/affect, oriented x 3 Crainal Nerves: normal hearing, normal speech, PERRL Coordination/Gait: normal finger to nose, normal gait Motor/Sensory: no motor deficit, no sensory deficit Skin: normal color, warm/dry Stroke NIH Stroke Scale Assessment Level of Consciousness: 0=Alert (0), Level of Consciousness-Questions: 0=Answers both month/age (0), LOC Commands: 0=Performs both tasks (0), Visual Ramirez: 0=No visual loss (0), Facial Movement (Facial Paresis): 0=Normal symmetrical mnt (0), Motor Function-Arms Right: 0=No drift (0), Motor Function-Arms Left: 0=No drift (0), Motor Function-Legs Right: 0=No drift (0), Motor Function-Legs Left: 0=No drift (0), Limb Ataxia: 0=Absent (0), Sensory: 0=Normal:no loss (0), Best Language: 0=No aphasia (0), Dysarthria: 0=Normal (0), Extinction & Inattention: 0=No abnormality (0), Total: 0 Progress/Results/Core Measures Results/Orders Lab Results Laboratory Tests Test 03/07/22 18:00 03/07/22 18:01 03/07/22 18:25 Range/Units White Blood Count 7.9 4.3-11.0 10^3/uL Red Blood Count 4.94 4.30-5.52 10^6/uL Hemoglobin 15.0 13.3-17.7 g/dL Hematocrit 44 40-54 % Mean Corpuscular Volume 89 80-99 fL Mean Corpuscular Hemoglobin 30 25-34 pg Mean Corpuscular Hemoglobin Concent 34 32-36 g/dL Red Cell Distribution Width 12.5 10.0-14.5 % Platelet Count 175 130-400 10^3/uL Mean Platelet Volume 10.5 9.0-12.2 fL Immature Granulocyte % (Auto) 0 % Neutrophils (%) (Auto) 61 42-75 % Lymphocytes (%) (Auto) 28 12-44 % Monocytes (%) (Auto) 8 0-12 % Eosinophils (%) (Auto) 2 0-10 % Basophils (%) (Auto) 0 0-10 % Neutrophils # (Auto) 4.9 1.8-7.8 10^3/uL Lymphocytes # (Auto) 2.2 1.0-4.0 10^3/uL Monocytes # (Auto) 0.6 0.0-1.0 10^3/uL Eosinophils # (Auto) 0.2 0.0-0.3 10^3/uL Basophils # (Auto) 0.0 0.0-0.1 10^3/uL Immature Granulocyte # (Auto) 0.0 0.0-0.1 10^3/uL Prothrombin Time 13.0 12.2-14.7 SEC INR Comment 0.9 0.8-1.4 Activated Partial Thromboplast Time 30 24-35 SEC D-Dimer 0.32 0.00-0.49 UG/ML Sodium Level 139 135-145 MMOL/L Potassium Level 4.4 3.6-5.0 MMOL/L Chloride Level 102 98-107 MMOL/L Carbon Dioxide Level 25 21-32 MMOL/L Anion Gap 12 5-14 MMOL/L Blood Urea Nitrogen 14 7-18 MG/DL Creatinine 0.95 0.60-1.30 MG/DL Estimat Glomerular Filtration Rate 87 BUN/Creatinine Ratio 15 Glucose Level 95 70-105 MG/DL Calcium Level 10.0 8.5-10.1 MG/DL Corrected Calcium 8.5-10.1 MG/DL Total Bilirubin 0.8 0.1-1.0 MG/DL Aspartate Amino Transf (AST/SGOT) 21 5-34 U/L Alanine Aminotransferase (ALT/SGPT) 18 0-55 U/L Alkaline Phosphatase 70 40-136 U/L Troponin I < 0.028 <0.028 NG/ML Total Protein 7.8 6.4-8.2 GM/DL Albumin 4.6 H 3.2-4.5 GM/DL Glucometer 88 70-110 MG/DL Urine Color YELLOW Urine Clarity CLEAR Urine pH 6.0 5-9 Urine Specific Somers 1.025 H 1.016-1.022 Urine Protein NEGATIVE NEGATIVE Urine Glucose (UA) 3+ H NEGATIVE Urine Ketones TRACE H NEGATIVE Urine Nitrite NEGATIVE NEGATIVE Urine Bilirubin NEGATIVE NEGATIVE Urine Urobilinogen 1.0 < = 1.0 MG/DL Urine Leukocyte Esterase NEGATIVE NEGATIVE Urine RBC (Auto) NEGATIVE NEGATIVE Urine RBC NONE /HPF Urine WBC NONE /HPF Urine Squamous Epithelial Cells RARE /HPF Urine Crystals NONE /LPF Urine Bacteria TRACE /HPF Urine Casts NONE /LPF Urine Mucus NEGATIVE /LPF Urine Culture Indicated NO My Orders Orders - HUNTER CARIAS MD Cbc With Automated Diff (03/07/22 18:15) Protime With Inr (03/07/22 18:15) Partial Thromboplastin Time (03/07/22 18:15) Comprehensive Metabolic Panel (03/07/22 18:15) Fibrin Degradation Products (03/07/22 18:15) Troponin I Hung (03/07/22 18:15) Ua Culture If Indicated (03/07/22 18:15) Chest 1 View, Ap/Pa Only (03/07/22 18:15) Ekg Tracing (03/07/22 18:15) Nothing By Mouth (03/07/22 Dinner) Ed Iv/Invasive Line Start (03/07/22 18:15) Ed Iv/Invasive Line Start (03/07/22 18:15) O2 (03/07/22 18:15) Monitor-Rhythm Ecg Trace Only (03/07/22 18:15) Dysphagia Screening Tool [id number] (03/07/22 18:15) Post Thrombolytic Adminstratio (03/07/22 18:15) Lipid Panel (03/08/22 06:00) Ct Angio Head/Neck (03/07/22 18:58) Iohexol Injection (Omnipaque 350 Mg/Ml 1 (03/07/22 19:15) Received Contrast (Hold Metformin- Contr (03/07/22 19:15) Sodium Chloride Flush (Catheter Flush Sy (03/07/22 19:15) Ns (Ivpb) (Sodium Chloride 0.9% Ivpb Bag (03/07/22 19:15) Aspirin Tablet (Aspirin Tablet) (03/07/22 21:00) Clopidogrel Tablet (Plavix Tablet) (03/07/22 21:00) Medications Given in ED Current Medications Medications Dose Ordered Sig/Michelle Route Start Time Stop Time Status Last Admin Dose Admin Aspirin 325 mg ONCE ONCE PO 03/07/22 21:00 03/07/22 21:01 DC 03/07/22 21:23 325 MG Clopidogrel Bisulfate 75 mg ONCE ONCE PO 03/07/22 21:00 03/07/22 21:01 DC 03/07/22 21:23 75 MG Iohexol 100 ml ONCE ONCE IV 03/07/22 19:15 03/07/22 19:16 DC 03/07/22 19:25 75 ML Sodium Chloride 10 ml NEEDED PRN IV 03/07/22 19:15 03/07/22 19:25 10 ML Sodium Chloride 100 ml ONCE ONCE IV 03/07/22 19:15 03/07/22 19:16 DC 03/07/22 19:25 80 ML Vital Signs/I&O 03/07/22 17:57 Temp 36.8 Pulse 60 Resp 18 B/P (MAP) 142/78 (99) Pulse Ox 99 O2 Delivery Room Air Blood Pressure Mean: 99 FSBG Bedside Testing Finger Stick Blood Glucose: 88 Blood Glucose Action Taken: DR CARIAS INFORMED Progress Progress Note : Time: 22:19 Progress Note Work-up was unremarkable. CT angiogram revealed no significant vascular pathology. I discussed the case with Dr. Kidd, stroke neurologist at [facility], at 1827. She recommended dual antiplatelet therapy and admission to finish out a TIA work-up. Patient initially had stated he would refuse admission and signed AMA papers. After I spoke with the stroke neurologist, his daughter talked him into staying. He wishes to be a full code. He received aspirin and Plavix in the emergency room. Case was discussed with Dr. Zambrano who accepted admission. Post stroke order set will be used on the admission. Initial ECG Impression Date: Mar 08, 2022 Initial ECG Impression Time: 18:36 Initial ECG Rate: 64 Comment Apparent sinus rhythm with rather prolonged MS interval not captured or measured by EKG machine. No ST elevation or depression. No axis deviation. Diagnostic Imaging Diagonstic Imaging: CT Plain Films/CT/US/NM/MRI: head Comments CT head viewed by me and report reviewed. See report below: NAME: EDELMIRA WILKINSON [facility] REC#: [id number] PT STATUS: ADM George : 1955 PHYSICIAN: GABBY BARNES MD ADMIT DATE: 03/07/22/ICU Signed Date of Exam:03/07/22 CT HEAD WO-R/O STROKE PROCEDURE: CT head wo r/o stroke. TECHNIQUE: Multiple contiguous axial images were obtained through the brain without the use of intravenous contrast. Auto Exposure Controls were utilized during the CT exam to meet ALARA standards for radiation dose reduction. INDICATION: Sudden loss of vision in both eyes while watching TV, atrial fibrillation, hypertension. Assess for possible CVA. COMPARISON: None. FINDINGS: The midline structures are not displaced. Lateral, 3rd and 4th ventricles are normal in size, shape and anatomic position. There is extensive background chronic areas of microvascular ischemic change. Castillo-white differentiation is normal. There is no sulcal effacement. There are no abnormal extra-axial fluid collections or hemorrhage. Basilar cisterns appear normal. Sinuses, orbits and mastoid air cells are unremarkable. Bone windows show no calvarial changes. IMPRESSION: Some mild senescent changes are present. Background chronic areas of microvascular ischemic changes also seen. Overall, no acute findings identified by nonenhanced CT criteria. If symptoms warrant or persist, an MRI may be of further value. Patient may also possibly benefit from a CTA head and neck. Dictated by: Dictated on workstation # [id number] Dict: 03/07/22 1813 Trans: 03/08/22403 [facility] [phone] Interpreted by: WILLIAN YU MD Electronically signed by: WILLIAN YU MD 03/08/22403 Diagonstic Imaging: Xray Plain Films/CT/US/NM/MRI: chest Comments NAME: EDELMIRA WILKINSON [facility] REC#: [id number] PT STATUS: ADM George : 1955 PHYSICIAN: HUNTER CARIAS MD ADMIT DATE: 03/07/22/ICU Signed Date of Exam:03/07/22 CHEST 1 VIEW, AP/PA ONLY INDICATION: Loss of vision, stroke work-up. TECHNIQUE: Single view chest 6:14 PM. CORRELATION STUDY: 06/06/2021. FINDINGS: Heart size borderline enlarged. Slightly more prominent from prior. Vasculature however overall within normal limits. Some of this may be attributed to technique. The lungs are clear with no consolidating infiltrate. There is no significant effusion or pneumothorax. IMPRESSION: Borderline cardiac enlargement without overt failure. Dictated by: Dictated on workstation # [id number] Dict: 03/07/22 183 Trans: 03/07/222312 [facility] [phone] Interpreted by: YARITZA GLASS DO Electronically signed by: YARITZA GLASS DO 03/07/22 5642 Diagonstic Imaging: CT Plain Films/CT/US/NM/MRI: other (Angiogram head and neck) Comments NAME: EDELMIRA WILKINSON [facility] REC#: [id number] PT STATUS: ADM George : 1955 PHYSICIAN: HUNTER CARIAS MD ADMIT DATE: 03/07/22/ICU Signed Date of Exam:03/07/22 CT ANGIO HEAD/NECK PROCEDURE: CT angiography of the head and CT angiography of the neck with and without contrast. TECHNIQUE: Contiguous noncontrast images were obtained from the skull base through the vertex. After intravenous contrast administration, helical CT angiography of the neck was performed. Source data was reformatted into 3D MIP projections. Delayed post contrast acquisition was also obtained. Auto Exposure Controls were utilized during the CT exam to meet ALARA standards for radiation dose reduction. Also reviewed on separate 3D workstation. INDICATION: 67-year-old male, sudden loss of vision in both eyes while watching TV. History of atrial fibrillation, hypertension and diabetes. Headache now gone. COMPARISON: CT head 03/07/2022. FINDINGS: CTA NECK: Aorta: Aortic arch is limited in evaluation with artifact present. Does appear relatively normal, with standard three vessel branching pattern. Right Common/Internal/External Carotid Artery: Common carotid artery patent. Moderate calcification of the carotid bifurcation without significant stenosis. Internal and external carotid arteries are patent. Left Common/Internal/External Carotid Artery: Common carotid artery is patent. There is moderate calcification of carotid bifurcation without significant stenosis. Internal/external carotid arteries are patent. Vertebral arteries: Relatively codominant bilateral vertebral arteries. There is torturous course of the vertebral arteries with question of mild to moderate amount of narrowing at the origin of the left vertebral artery. Vertebral arteries are otherwise patent to the skull base. Non-vascular: Soft tissues appear unremarkable. Visualized lung apices unremarkable. Mildly advanced degenerative changes in cervical spine. CTA HEAD: Anterior Circulation: The intracranial internal carotid arteries are patent. The bilateral middle cerebral arteries are patent and without stenosis. The anterior cerebral arteries are patent and without stenosis. Posterior Circulation: The bilateral intracranial segments of the vertebral arteries are patent. The basilar artery is patent and without stenosis. The posterior cerebral arteries are patent. Dural venous system appears patent. Post Contrast Head: No concerning enhancement on delayed post-contrast imaging. IMPRESSION: 1. Negative CTA of the head. 2. Mild carotid bifurcation calcification without significant stenosis. No large vessel occlusion. Dictated by: Dictated on workstation # [id number] Dict: 03/07/221928 Trans: 03/07/222313 [facility] [id number] Interpreted by: YARITZA GLASS DO Electronically signed by: YARITZA GLASS DO 03/07/224 Departure Communication (Admissions) Time/Spoke to Admitting Phy: 21:52 Dr. Zambrano Impression Primary Impression: TIA (transient ischemic attack) Additional Impression: Vision changes Disposition: ADMITTED INPATIENT Condition: Stable Admissions Decision to Admit Reason: Admit from ER (General) Decision to Admit/Date: Mar 07, 2022 Time/Decision to Admit Time: 21:52 Departure-Patient Inst. Referrals: GWEN SNELL MD (PCP/Family) Primary Care Physician HUNTER CARIAS MD Mar 07, 2022 22:21
[2022-03-07 23:01] VITALS: BP 142/78
[2022-03-07] MEDS ORDERED: ONDANSETRON 4 MG/2 ML (SDV) Z0FRAN IV PRN (23:30)
[2022-03-07] MEDS ORDERED: ASPIRIN 300 MG (5 GR) SUPPOSITORY PR PRN (23:30)
[2022-03-07] MEDS ORDERED: LACTATED RINGERS 1,000 ML IV ONE (23:30)
[2022-03-07] MEDS ORDERED: ENOXAPARIN 40 MG/0.4 ML (LOVENOX) SYR SC SCH (23:30)
[2022-03-08 05:22] LABS: BASOPHILS % (AUTO) 0 % (0-10); EOSINOPHILS # (AUTO) 0.2 10^3/uL (0.0-0.3); EOSINOPHILS % (AUTO) 3 % (0-10); HEMATOCRIT 41 % (40-54); HEMOGLOBIN 14.3 g/dL (13.3-17.7); LYMPHOCYTES # (AUTO) 2.1 10^3/uL (1.0-4.0); LYMPHOCYTES % (AUTO) 30 % (12-44); MEAN CORPUSCULAR HEMOGLOBIN 31 pg (25-34); MEAN CORPUSCULAR HGB CONC 35 g/dL (32-36); MEAN CORPUSCULAR VOLUME 89 fL (80-99); MEAN PLATELET VOLUME 10.6 fL (9.0-12.2); MONOCYTES # (AUTO) 0.6 10^3/uL (0.0-1.0); MONOCYTES % (AUTO) 8 % (0-12); NEUTROPHILS # (AUTO) 4.1 10^3/uL (1.8-7.8); NEUTROPHILS % (AUTO) 58 % (42-75); PLATELET COUNT 160 10^3/uL (130-400)
[2022-03-08 05:43] LABS: CALCIUM 9.5 MG/DL (8.5-10.1)
[2022-03-08 05:45] LABS: TOTAL PROTEIN 6.6 GM/DL (6.4-8.2)
[2022-03-08 05:46] LABS: BILIRUBIN,TOTAL 0.8 MG/DL (0.1-1.0)
[2022-03-08 05:48] LABS: PHOSPHORUS 3.5 MG/DL (2.3-4.7)
[2022-03-08 05:49] LABS: CREATININE SERUM 0.79 MG/DL (0.60-1.30)
[2022-03-08 05:52] LABS: MAGNESIUM 1.8 MG/DL (1.6-2.4)
--- NOTE | 2022-03-08 07:28 | Tele-ICU Consult ---
History of Present Illness History of Present Illness Date Seen by Provider: Mar 08, 2022 Time Seen by Provider: 07:27 History of Present Illness 67 yo M brought to ED for sudden loss of vision with gradual return Had CT head which showed microvascular changes, CTA head and neck was ok except for calcifications in common carotid bifurcation Had episode of left numbness a few weeks ago, Teleneuro building energy consultant advised admission and starting on DPT, Now on ASA and Plavix ED neuro exam is now described as normal. PMH KS, HTN, GERD, ? Hx of a fib, hernia repair Allergies and Home Medications Allergies Coded Allergies: No Known Allergies (Unverified Allergy, Unknown, 05/02/17) Home Medications Aspirin 81 Mg Tablet.dr, 81 MG PO HS, (Reported) Atorvastatin Calcium 20 Mg Tablet, 20 MG PO HS, (Reported) Dapagliflozin Propanediol 10 Mg Tablet, 10 MG PO DAILY, (Reported) Glyburide 5 Mg Tablet, 5 MG PO DAILY, (Reported) Lisinopril 20 Mg Tablet, 20 MG PO DAILY, (Reported) Metformin HCl 850 Mg Tablet, 850 MG PO BID, (Reported) Metoprolol Succinate 50 Mg Tab.er.24h, 50 MG PO HS, (Reported) Omeprazole 40 Mg Capsule.dr, 40 MG PO DAILY, (Reported) Past Medical/Social/Family Hx Patient Social History Tobacco Use?: Yes Tobacco type used: Cigars Smoking Status: Former Smoker Smokeless Tobacco Frequency: Never a User Use of E-Cig and/or Vaping dev: No Substance use?: No Alcohol Use?: No Pt stated abuse/neglect: No Immunizations Up To Date Influenza Vaccine Up-to-Date: Yes; Up-to-Date First/Initial COVID19 Vaccinat: 09/07 Second COVID19 Vaccination Devante: 10/05 Tetanus Booster (TDap): Unknown Current Status Advance Directives: No Communicates: Verbally Primary Language: Salvadorean Preferred Spoken Language: Salvadorean Is interpretation needed?: No Sensory deficits: Vision impairment Implanted or Applied Medical D: None Review of Systems Constitutional: see HPI EENTM: see HPI Respiratory: see HPI Cardiovascular: see HPI Gastrointestinal: see HPI Genitourinary: see HPI Musculoskeletal: see HPI Skin: see HPI Psychiatric/Neurological: See HPI Focused Exam Height, Weight, BMI Height: 6'1.00" Weight: 222lbs. 4.0oz. 100.350062xc; 29.72 BMI Method: Exam Exam Patient acknowledged, consented, and participated in this virtual visit which was conducted using real time audio/video Vital Signs Date Time Temp Pulse Resp B/P (MAP) Pulse Ox O2 Delivery O2 Flow Rate FiO2 03/08/22 06:00 52 24 123/75 98 Room Air 03/08/22 05:00 55 20 127/75 97 Room Air 03/08/22 04:00 43 20 118/68 97 Room Air 03/08/22 04:00 97 Room Air 03/08/22 03:00 40 8 106/80 96 Room Air 03/08/22 03:00 36.4 Room Air 03/08/22 02:09 Room Air 03/08/22 02:00 58 117/71 97 Room Air 03/08/22 01:00 51 03/08/22 01:00 63 14 135/76 96 Room Air 03/08/22 00:30 59 34 128/86 98 Room Air 03/08/22 00:15 53 125/72 96 Room Air 03/08/22 00:00 53 143/76 96 Room Air 03/07/22 23:45 52 21 129/77 95 Room Air 03/07/22 23:30 53 18 139/75 96 Room Air 03/07/22 23:30 98 Room Air 03/07/22 23:15 58 17 149/77 96 Room Air 03/07/22 23:12 55 18 142/76 97 Room Air 03/07/22 23:12 55 03/07/22 23:05 36.4 Room Air 03/07/22 23:01 36.8 60 18 142/78 99 Room Air 03/07/22 17:57 36.8 60 18 142/78 (99) 99 Room Air I & O 03/08/22 07:00 Intake Total 1120 ml Output Total 250 ml Balance 870 ml Height & Weight Height: 6'1.00" Weight: 222lbs. 4.0oz. 100.171215yd; 29.72 BMI Method: General Appearance: No Apparent Distress Capillary Refill: Less Than 3 Seconds Gastrointestinal: normal bowel sounds, non tender, soft Results Lab Laboratory Tests 03/07/22 18:00 03/08/22 04:45 Assessment/Plan Assessment/Plan Possible TIA, will continue on Plavix and ASA, Neuro to follow Hb 15 with obesity make me wonder about a reactive polycythemia from ADWOA, Would evaluate as OP BP is controlled Critical Care: Critically Ill Patient Time spent with patient (mins): 30 YADIRA GARCIA MD Mar 08, 2022 07:28
[2022-03-08] MEDS ORDERED: ASPIRIN 325 MG (5 GR) TABLET PO SCH (09:00)
[2022-03-08] MEDS ORDERED: CLOPIDOGREL 75 MG (PLAVIX) TABLET PO SCH (09:00)
[2022-03-08] MEDS ORDERED: DOCUSATE SODIUM 100 MG (COLACE) CAP PO SCH (09:00)
[2022-03-08] MEDS ORDERED: ASPI-1238 PO (09:04)
--- NOTE | 2022-03-08 09:34 | Short Stay Summary ---
History of Present Illness History of Present Illness Reason for visit/HPI 67 y/o male with a past medical history of HTN, HLD, and T2DM presented to [facility] ER after having an episode of acute vision loss while watching TV. Patient states that he was watching TV last night when he noticed the vision in his right eye became a little fuzzy, then it progressed to his left eye. Patient states he could still see light, but that everything was blurry. Patient noticed the vision in his left eye starting to return and then went to splash water on his face and sit down at the kitchen table. Within 10 minutes his vision returned to normal and he felt fine. Patient states the only other symptoms he had was on and off headaches over the past few days. Denies confusion, ataxia, aphasia, word finding difficulties at the time of the episode or after. Daughter was in the room and states patient is back to baseline. Patient had a CT head which showed chronic areas of microvascular ischemia. CXR was negative. CT head and neck show mild carotid bifurcation calcification w/o significant stenosis but otherwise negative for acute processes. Patient is set to have an MRI and pending results will be discharged later this afternoon. Date of Admission Mar 07, 2022 at 21:52 Date of Discharge 03/08/2022 Time Seen by Provider: 09:00 Attending Physician Darya Castillo MD Admitting Physician Admitting Physician: Jaci Zambrano MD Attending Physician: Darya Castillo MD Consult Allergies and Home Medications Allergies Coded Allergies: No Known Allergies (Unverified Allergy, Unknown, 05/02/17) Patient Home Medication List Home Medication List Reviewed: Yes Aspirin (Aspirin EC) 81 Mg Tablet.dr, 81 MG PO HS, (Reported) Entered as Reported by: TAYLA WANG on 03/08/22 0904 Last Action: Reviewed Atorvastatin Calcium (Atorvastatin Calcium) 20 Mg Tablet, 20 MG PO HS, (Reported) Entered as Reported by: VARSHA MALONE on 02/10/22924 Last Action: Reviewed Dapagliflozin Propanediol (Farxiga) 10 Mg Tablet, 10 MG PO DAILY, (Reported) Entered as Reported by: MOLLY MA on 05/02/171607 Last Action: Reviewed Glyburide (Glyburide) 5 Mg Tablet, 5 MG PO DAILY, (Reported) Entered as Reported by: MOLLY MA on 05/02/171607 Last Action: Reviewed Lisinopril (Lisinopril) 20 Mg Tablet, 20 MG PO DAILY, (Reported) Entered as Reported by: MOLLY MA on 05/02/171607 Last Action: Reviewed Metformin HCl (Metformin HCl) 850 Mg Tablet, 850 MG PO BID, (Reported) Entered as Reported by: MEETA LYNN on 07/13/211133 Last Action: Reviewed Metoprolol Succinate (Metoprolol Succinate) 50 Mg Tab.er.24h, 50 MG PO HS, (Reported) Entered as Reported by: VARSHA MALONE on 02/10/22 0925 Last Action: Reviewed Omeprazole (Omeprazole) 40 Mg Capsule.dr, 40 MG PO DAILY, (Reported) Entered as Reported by: MOLLY MA on 05/02/171607 Last Action: Reviewed Discontinued Medications Multivit-Min/FA/Lycopene/Lut (Centrum Silver Tablet) 1 Each Tablet, 1 TAB PO DAILY, (Reported) Discontinued Reason: No Longer Taking Entered as Reported by: MOLLY MA on 05/02/171607 Last Action: Discontinued Polyethylene Glycol 3350 (Miralax) 17 Gm Powd.pack, 17 GM PO DAILY, (Reported) Discontinued Reason: No Longer Taking Entered as Reported by: MEETA LYNN on 07/13/211133 Last Action: Discontinued Saw Providence Fruit/Zinc Picoli (Saw Providence 450 mg Capsule) 1 Each Capsule, 1 EACH PO DAILY, (Reported) Discontinued Reason: No Longer Taking Entered as Reported by: MEETA LYNN on 07/13/211133 Last Action: Discontinued Past Ryriiaf-Ezyjjc-Nsurzw Hx Patient Social History Marrital Status: Employed/Student: retired Smoking Status: Former Smoker 2nd Hand Smoke Exposure: No Recent Hopitalizations: No Have you traveled recently?: No Alcohol Use?: No Pt feels they are or have been: No Tobacco type used: Cigars Immunizations Up To Date Date of Influenza Vaccine: May 18, 2021 Surgeries Yes (R WRIST) Abdominal (Hernia repair), Adenoidectomy, Orthopedic, Tonsillectomy, Vasectomy Respiratory No Cardiovascular Yes Coronary Artery Disease, Heart Attack, Hypertension, Irregular Heartbeat (PVC) Neurological No Genitourinary No Gastrointestinal Yes (HERNIA REPAIR, EROSIVE GASTRITIS) Abdominal Hernia, Gastroesophageal Reflux Musculoskeletal No Fractures (R wrist) Endocrine History of Endocrine Disorders: Yes Endocrine Disorders: Diabetes, Non-Insulin dep HEENT History of HEENT Disorders: No Cancer No Psychosocial History of Psychiatric Problem: No Integumentary History of Skin or Integumenta: No Blood Transfusions History of Blood Disorders: No Family Medical History Significant Family History: Heart Disease, Cancer, CAD Under 55 Years Old, CAD Over 55 Years Old, Diabetes Review of Systems Constitutional: No dizziness, No malaise, No weakness EENTM: No blurred vision, No double vision, No vision loss Respiratory: No cough, No dyspnea on exertion Cardiovascular: No chest pain, No palpitations Gastrointestinal: No abdominal pain, No constipation, No diarrhea, No nausea, No vomiting Genitourinary: No dysuria, No frequency, No hematuria, No incontinence Musculoskeletal: joint pain (r shoulder, chronic) Physical Exam Vital Signs Vital Signs - First Documented 03/07/22 17:57 Temp 36.8 Pulse 60 Resp 18 B/P (MAP) 142/78 (99) Pulse Ox 99 O2 Delivery Room Air Capillary Refill : Less Than 3 Seconds Height, Weight, BMI Height: 6'1.00" Weight: 222lbs. 4.0oz. 100.713000mi; 29.72 BMI Method: General Appearance: No Apparent Distress, WD/WN HEENT: PERRL/EOMI Neck: Non Tender, Supple Respiratory: Chest Non Tender, Lungs Clear, Normal Breath Sounds, No Accessory Muscle Use, No Respiratory Distress Cardiovascular: Regular Rate, Rhythm, No Murmur, Normal Peripheral Pulses Gastrointestinal: Normal Bowel Sounds, Non Tender, Soft Rectal: Deferred Extremity: Non Tender, No Calf Tenderness, No Pedal Edema Neurologic/Psychiatric: Alert, Oriented x3, Normal Mood/Affect; No Aphasia, No Disoriented, No Facial Droop, No Motor Weakness, No Sensory Deficit Skin: Normal Color, Warm/Dry Short Stay Diagnosis Discharge Diagnosis-Short Stay Admission Diagnosis: TIA Final Discharge Diagnosis: TIA HTN HLD T2DM - non insulin dependent Conclusion Labs Laboratory Tests 03/07/22 18:00: White Blood Count 7.9, Red Blood Count 4.94, Hemoglobin 15.0, Hematocrit 44, Mean Corpuscular Volume 89, Mean Corpuscular Hemoglobin 30, Mean Corpuscular Hemoglobin Concent 34, Red Cell Distribution Width 12.5, Platelet Count 175, Mean Platelet Volume 10.5, Immature Granulocyte % (Auto) 0, Neutrophils (%) (Auto) 61, Lymphocytes (%) (Auto) 28, Monocytes (%) (Auto) 8, Eosinophils (%) (Auto) 2, Basophils (%) (Auto) 0, Neutrophils # (Auto) 4.9, Lymphocytes # (Auto) 2.2, Monocytes # (Auto) 0.6, Eosinophils # (Auto) 0.2, Basophils # (Auto) 0.0, Immature Granulocyte # (Auto) 0.0, Prothrombin Time 13.0, INR Comment 0.9, Activated Partial Thromboplast Time 30, D-Dimer 0.32, Sodium Level 139, Potassium Level 4.4, Chloride Level 102, Carbon Dioxide Level 25, Anion Gap 12, Blood Urea Nitrogen 14, Creatinine 0.95, Estimat Glomerular Filtration Rate 87, BUN/Creatinine Ratio 15, Glucose Level 95, Calcium Level 10.0, Corrected Calcium , Total Bilirubin 0.8, Aspartate Amino Transf (AST/SGOT) 21, Alanine Aminotransferase (ALT/SGPT) 18, Alkaline Phosphatase 70, Troponin I < 0.028, Total Protein 7.8, Albumin 4.6H 03/07/22 18:01: Glucometer 88 03/07/22 18:25: Urine Color YELLOW, Urine Clarity CLEAR, Urine pH 6.0, Urine Specific [place] 1.025H, Urine Protein NEGATIVE, Urine Glucose (UA) 3+H, Urine Ketones TRACEH, Urine Nitrite NEGATIVE, Urine Bilirubin NEGATIVE, Urine Urobilinogen 1.0, Urine Leukocyte Esterase NEGATIVE, Urine RBC (Auto) NEGATIVE, Urine RBC NONE, Urine WBC NONE, Urine Squamous Epithelial Cells RARE, Urine Crystals NONE, Urine Bacteria TRACE, Urine Casts NONE, Urine Mucus NEGATIVE, Urine Culture Indicated NO 03/08/22 04:45: White Blood Count 7.0, Red Blood Count 4.65, Hemoglobin 14.3, Hematocrit 41, Mean Corpuscular Volume 89, Mean Corpuscular Hemoglobin 31, Mean Corpuscular Hemoglobin Concent 35, Red Cell Distribution Width 12.6, Platelet Count 160, Mean Platelet Volume 10.6, Immature Granulocyte % (Auto) 0, Neutrophils (%) (Auto) 58, Lymphocytes (%) (Auto) 30, Monocytes (%) (Auto) 8, Eosinophils (%) (Auto) 3, Basophils (%) (Auto) 0, Neutrophils # (Auto) 4.1, Lymphocytes # (Auto) 2.1, Monocytes # (Auto) 0.6, Eosinophils # (Auto) 0.2, Basophils # (Auto) 0.0, Immature Granulocyte # (Auto) 0.0, Sodium Level 138, Potassium Level 4.0, Chloride Level 105, Carbon Dioxide Level 21, Anion Gap 12, Blood Urea Nitrogen 14, Creatinine 0.79, Estimat Glomerular Filtration Rate 97, BUN/Creatinine Ratio 18, Glucose Level 71, Calcium Level 9.5, Corrected Calcium 9.5, Total Bilirubin 0.8, Aspartate Amino Transf (AST/SGOT) 17, Alanine Aminotransferase (ALT/SGPT) 14, Alkaline Phosphatase 69, Total Protein 6.6, Albumin 4.0, Phosphorus Level 3.5, Magnesium Level 1.8, Triglycerides Level 103, Cholesterol Level 145, LDL Cholesterol Direct 99, VLDL Cholesterol 21, HDL Cholesterol 41 Conclusion/Plan Patient underwent stroke work-up which was negative for acute processes. Patient is going to have an MRI today. Patient follows with Dr. Foster and sees him yearly. Patient just had a stress test echo which was normal. If the MRI results are okay, patient will be discharged home with close follow up. If patient has not had carotid US anytime recently, can consider doing that on an outpatient basis. Patient will have plavix added to his medication regimen. NEEMA HURST Mar 08, 2022 09:34
--- NOTE | 2022-03-08 10:25 | Diagnostic Imaging Report ---
PROCEDURE: MR imaging of the brain without contrast. TECHNIQUE: Multiplanar, multisequence MR imaging of the brain was performed without contrast. INDICATION: Vision loss. COMPARISON: CTA head and neck 03/07/2022. FINDINGS: Moderate generalized parenchymal volume loss. Advanced nonspecific T2 hyperintensities in the supratentorial white matter. No restricted water diffusion. No hemosiderin deposition or evidence of intracranial hemorrhage. Normal morphology including the major midline structures, sella, posterior fossa and cerebellar pontine angle. Normal intracranial flow voids. No hydrocephalus or extra-axial fluid collections. The orbits are negative. Paranasal sinuses and mastoids are unremarkable. Normal bone marrow signal. IMPRESSION: 1. No acute intracranial MRI findings. No evidence of acute infarction. 2. Moderate generalized parenchymal volume loss and advanced leukoaraiosis. Dictated by: Dictated on workstation # [id number]
[2022-03-08] MEDS ORDERED: CLOP75TA28 PO (13:55)
--- NOTE | 2022-03-08 13:58 | Discharge Inst-Simple/Standard ---
Discharge Inst-Standard Reconcile Patient Problems Problems Reviewed?: Yes Discharge Medications New, Converted or Re-Newed RX: Transmitted to Pharmacy Patient Instructions/Follow Up Plan of Care/Instructions/FU: 1 wk [facility] [address] Activity as Tolerated: Yes Discharge Diet: ADA Diet, Avoid Fatty Foods Health Concerns: hypertension Return to The Hospital For: any concern for lifethreatening illnes, injury or other concerns of recurrent symptoms GWEN SNELL MD Mar 08, 2022 13:58
== END 2022-03-08 13:58 | disposition home or self-care (01) ==
LOC: EDUNIT# 17:48 → ER 17:50 → ICU 21:52 → UNDOADMOB 21:52 → ICU 23:05 → UNDODISOB 03-08 14:50
PROVIDERS: ADMIT Internal Medicine; ATTEND Family Medicine
DX: G45.9 Transient cerebral ischemic attack, unspecified (principal); I10 Essential (primary) hypertension; E78.5 Hyperlipidemia, unspecified; E11.9 Type 2 diabetes mellitus without complications; Z87.891 Personal history of nicotine dependence; Z79.82 Long term (current) use of aspirin; Z79.84 Long term (current) use of oral hypoglycemic drugs; Z79.899 Other long term (current) drug therapy
CPT/HCPCS: 70450; 70496; 70498; 70551; 71045; 80053 ×2; 80061; 81000; 82947; 83735; 84100; 84484; 85025 ×2; 85379; 85610; 85730; 87081; 93005; 93041; 93306; 94664; 96361; 96372; 99285; G0378 ×2; 36415

== ENCOUNTER 2022-11-17 13:00 | Day surgery (SDC) | payer MEDICARE ==
[2022-11-17] VITALS (13 sets, daily range): BP systolic 118–133; BP diastolic 71–81
--- NOTE | 2022-11-17 11:14 | Diagnostic Imaging Report ---
EXAMINATION: Chest 1 view HISTORY: Precatheterization. COMPARISON: 03/07/2022. FINDINGS: The lung volumes are normal. No focal consolidation is seen. No large pleural effusion or pneumothorax is seen. The cardiomediastinal silhouette is normal in size and contour. No acute osseous abnormality is seen. IMPRESSION: 1. No acute pleuroparenchymal process. Dictated by: Dictated on workstation # [id number]
--- NOTE | 2022-11-17 11:36 | Cardiac Procedure Note-CS/ASA ---
Pre-Procedure Note Pre-Op Procedure Note Date of Available H&P: Nov 11, 2022 Date H&P Reviewed: November 17, 2022 Time H&P Reviewed: 11:00 History & Physical: H&P Reviewed, Patient Examed, No changes noted Pre-Operative Diagnosis: Sinus node dysfunction, symptomatic bradycardia Moderate Sedation PreProcedure Time 11:00 ASA Score 3 Airway Lungs Heart ASA score ASA 1: a normal healthy patient ASA 2: a patient with a mild systemic disease (mid diabetes, controlled hypertension, obesity ASA 3: a patient with a severe systemic disease that limits activity (angina, COPD, prior Myocardial infarction) ASA 4: a patient with an incapacitating disease that is a constant threat to life (CHF, renal failure) ASA 5: a moribund patient not expected to survive 24 hrs. (ruptured aneurysm) ASA 6: a declared brain- patient whose organs are being harvested. For emergent operations, add the letter E after the classification Mallampati Classification Grade 3 Sedation Plan Analgesia, Amnesia, Plan communicated to team members, Discussed options with patient/fam, Discussed risks with patient/fam The patient is an appropriate candidate to undergo the planned procedure, sedation, and anesthesia. The patient immediately re-assessed prior to indication. LORENZA MAHONEY MD November 17, 2022 11:36
[2022-11-17 11:44] LABS: ALBUMIN 4.5 GM/DL (3.2-4.5); BILIRUBIN,TOTAL 0.6 MG/DL (0.1-1.0); CALCIUM 9.9 MG/DL (8.5-10.1); CREATININE SERUM 0.9 MG/DL (0.60-1.30); TOTAL PROTEIN 7.5 GM/DL (6.4-8.2)
[2022-11-17 11:56] LABS: HEMATOCRIT 45 % (40-54); HEMOGLOBIN 15.5 g/dL (13.3-17.7); MEAN CORPUSCULAR HEMOGLOBIN 30 pg (25-34); MEAN CORPUSCULAR HGB CONC 35 g/dL (32-36); MEAN CORPUSCULAR VOLUME 87 fL (80-99); PLATELET COUNT 194 10^3/uL (130-400); WHITE BLOOD COUNT 4.9 10^3/uL (4.3-11.0)
[2022-11-17 11:57] LABS: PROTHROMBIN TIME PATIENT 13.4 SEC (12.2-14.7)
[~2022-11-17 13:00] MED LIST changes: +CLOP75TA28 PO; +HEParin (CATH LAB) 1,000 ML IV ONE; +LIDOCAINE 1% INJ 20 ML VIAL ONE; +MIDAZOLAM 5 MG/5 ML (VERSED) VIAL ONE; +NS (IVPB) 100 ML ONE; +NS IV 1000 ML 1,000 ML IV SCH; +NS IV 1000 ML 2,000 ML ONE; +PATIENT MAY USE OWN MEDS, ALL PO SCH; +ceFAZolin INJECTION 1,000 MG ONE; +fentaNYL INJ 100 MCG/2 ML AMP ONE
--- NOTE | 2022-11-17 13:05 | Permanent Pacemaker Implant ---
Dual Chamber Pacemaker Implant PROCEDURE PHYSICIAN: Lorenza Foster DUAL CHAMBER PACEMAKER IMPLANTATION: DATE OF PROCEDURE: 11/17/22 INDICATION: Symptomatic bradycardia PREOPERATIVE DIAGNOSIS: Sinus node dysfunction, complete heart block POSTOPERATIVE DIAGNOSIS: Sinus node dysfunction, complete heart block HISTORY: Dual-chamber permanent pacemaker was recommended. PROCEDURE PERFORMED: 1. Dual-chamber permanent pacemaker implantation. 2. Fluoroscopy. 3. Central venous access. ANESTHESIA: Local anesthesia, conscious sedation. COMPLICATIONS: None. ESTIMATED BLOOD LOSS:20 mL. SPECIMENS: None. ORAL ANTICOAGULATION: None. FLUOROSCOPY TIME: FLUOROSCOPY DOSE: CONTRAST DOSE: PROCEDURE DETAILS: The patient is a 67 male with symptomatic bradycardia, had a Zio patch showing significant bradycardia. Scheduled for pacemaker implant. After all of the patients questions were answered, the patient was brought to the EP Lab. The patient's left chest was prepped and draped in sterile fashion. A 2 inch horizontal incision was made 1 cm below the clavicle and dissection carried down to the pectoralis fascia. Using the modified Seldinger technique and under fluoroscopy guidance, the anterior aspect of the left axillary vein was accessed 2 times. The J wires were secured to the drapes with a mosquito clamp. A 7-Martiniquais sheath was introduced over one of the J-wires. The RV lead was then inserted. The RV lead was directed across the tricuspid valve to the apical septal portion of the right ventricle. The position was checked in BERTHA and RICHARD views. The screw was deployed and the lead connected to the analytic programmer. Close sensing and pacing thresholds were obtained. Diaphragmatic pacing was ruled out. The lead was secured with 2-0 silk ties to the underlying muscle and fascia. Next, a 7-Martiniquais sheath was introduced through the remaining J-wire. An atrial lead was then introduced and guided to the level of the right appendage. The screw was deployed and the lead was connected to the interrogator. Good sensing and pacing thresholds were obtained. Diaphragmatic pacing was ruled out. The leads were secured with 2-0 silk ties to the underlying muscle and fascia. The leads were connected to the device in a hermetic fashion. The device and leads were placed in the pocket. Aggressive irrigation with saline solution was done. The device was secured to the underlying muscle and fascia with a 2-0 silk tie. interrogation of the device revealed good integrity of all the leads and g ood connections. The wound was then closed using 2 layers. The first layer was interrupted 2-0 absorbable Vicryl suture. The last layer was a single subcuticular layer with 4- 0 Vicryl suture. Half inch Steri-Strips and a small dressing were then applied to the wound. The patient tolerated the procedure well and was returned to the recovery room in stable condition with stable vital signs. DEVICE INFORMATION: WILLIAM XT DR REAVES [id number] RA LEAD: [id number] RV LEAD: [id number] PER-OPERATIVE DEVICE INTERROGATION: Good sensing and capture activity IMMEDIATE POSTOPERATIVE DEVICE INTERROGATION: Right atrium, threshold 0.4 ms at 0.5 V. Impedance 399, P wave 2.3 mV Right ventricle Threshold 0.4 ms at 1 mV. Impedance 646, R wave 6.6 mV PLAN: The patient transferred to the ICU. We will continue with two more doses of IV antibiotics. We will check a chest x-ray and interrogate the device in the morning. The patient will continue on oral antibiotics for 5 days. CONCLUSION: Successful implantation of dual-chamber pacemaker with no complications FINAL DIAGNOSIS: Symptomatic bradycardia Sinus node dysfunction Second-degree AV block Mobitz 2 Complete heart block LORENZA FOSTER MD November 17, 2022 13:05
[2022-11-17] MEDS ORDERED: CEFU500T63 PO (13:07)
--- NOTE | 2022-11-17 13:07 | Discharge Inst-Post CATH ---
Discharge Inst-CATH/EP Problems Reviewed?: Yes Post Cardiac Cath/EP D/C Inst Follow Up/Plan Appointment with Dr. Foster's office next week for pacemaker checkup <b>CARDIAC CATH/EP PROCEDURE DISCHARGE INSTRUCTIONS</b> ACTIVITY * Go Home directly and rest. * Limit activity of the leg (or wrist if it was used) for 7 days including aerobics, swimming, jogging, bicycling, etc. * Restrict stair-climbing for 7 days if possible, if not, climb up with your non-cath leg, then bring together on the same step. * Avoid lifting, pushing, pulling or excessive movement of the affected extremity for 7 days. * Customary sexual activity may be resumed after 2 days-use caution not to use a position that strains or causes pain to the affected extremity. * No driving for 24 hours. * NO SMOKING. * Avoid straining for bowel movements for 7 days. * Gentle walking on level ground is allowed. * Returning to work will depend on the type of procedure and the results. Your doctor will discuss this with you. CALL YOUR DOCTOR FOR ANY OF THE FOLLOWING: *If bleeding from the puncture site occurs- Apply gentle pressure to site with clean cloth and call your doctor or EMS. * If a knot or lump forms under the skin, increases in size, or causes pain. * If bruising appears to be worsening or moving further down your leg instead of disappearing. * Temperature above 101 F. CARE OF YOUR GROIN INCISION; * Bruising or purple discoloration of the skin near the puncture site is common. * You may shower only, no bathtub bathing for 5 days. Be careful to avoid slipping as your leg may feel stiff. * If a closure device was used on your femoral artery, please see the attached guide regarding care of the device and your leg. * Leave dressing on FOR 24 hours. CARE OF YOUR WRIST INCISION; * Bruising or purple discoloration of the skin near the puncture site is common. * You may shower. * DO NOT submerge wrist. * Leave dressing on FOR 24 hours. LORENZA FOSTER MD November 17, 2022 13:07
[2022-11-17] MEDS ORDERED: ceFAZolin INJECTION 1,000 MG in NS (IVPB) 50 ML IV SCH ×2 (14:00→19:00)
[2022-11-17] MEDS ORDERED: ACETAMINOPHEN 325 MG TABLET PO NR (15:00)
--- NOTE | 2022-11-17 18:05 | Diagnostic Imaging Report ---
INDICATION: Pacemaker placement. FINDINGS: Battery for the pacemaker overlies the left chest. The dual-chamber leads project in expected alignment. There is no pneumothorax. The lungs are clear. Upper limits heart size is stable. IMPRESSION: Pacemaker placed without apparent complication or acute appearing abnormality. Dictated by: Dictated on workstation # [id number]
== END 2022-11-17 21:10 | disposition home or self-care, planned readmission (81) ==
LOC: CATH 13:00 → CSD 13:15 → CATH 21:10
PROVIDERS: ATTEND Internal Medicine Cardiovascular Disease
DX: I44.2 Atrioventricular block, complete (principal); I49.5 Sick sinus syndrome; I25.10 Atherosclerotic heart disease of native coronary artery without angina pectoris; I49.3 Ventricular premature depolarization; E78.5 Hyperlipidemia, unspecified; E11.9 Type 2 diabetes mellitus without complications; I11.9 Hypertensive heart disease without heart failure; H93.19 Tinnitus, unspecified ear; E78.2 Mixed hyperlipidemia; G47.33 Obstructive sleep apnea (adult) (pediatric); Z79.02 Long term (current) use of antithrombotics/antiplatelets; Z87.891 Personal history of nicotine dependence; Z79.84 Long term (current) use of oral hypoglycemic drugs; Z79.899 Other long term (current) drug therapy
CPT/HCPCS: 33208; 71045; 80053; 80061; 85027; 85610; 85730; 87081; 93005; C1785; C1898 ×2; 36415

== ENCOUNTER 2022-12-03 07:46 | Outpatient (CLI) | payer MEDICARE ==
[~2022-12-03 07:46] MED LIST changes: +CEFU500T63 PO; -HEParin (CATH LAB) 1,000 ML IV ONE; -LIDOCAINE 1% INJ 20 ML VIAL ONE; -MIDAZOLAM 5 MG/5 ML (VERSED) VIAL ONE; -NS (IVPB) 100 ML ONE; -NS IV 1000 ML 1,000 ML IV SCH; -NS IV 1000 ML 2,000 ML ONE; -PATIENT MAY USE OWN MEDS, ALL PO SCH; -ceFAZolin INJECTION 1,000 MG ONE; -fentaNYL INJ 100 MCG/2 ML AMP ONE
== END 2022-12-03 08:10 ==
LOC: SLEEP 07:46
PROVIDERS: ATTEND Internal Medicine Cardiovascular Disease
DX: G47.33 Obstructive sleep apnea (adult) (pediatric) (principal); G47.30 Sleep apnea, unspecified; I10 Essential (primary) hypertension; R06.83 Snoring; Z86.73 Personal history of transient ischemic attack (TIA), and cerebral infarction without residual deficits
CPT/HCPCS: G0399

== ENCOUNTER 2023-06-16 20:37 | Outpatient (CLI) | payer MEDICARE | END 2023-06-17 04:44 | LOC: SLEEP 20:37 | PROVIDERS: ATTEND Otolaryngology Otolaryngology/Facial Plastic Surgery | DX: G47.33 Obstructive sleep apnea (adult) (pediatric) (principal); G47.31 Primary central sleep apnea | CPT/HCPCS: 95811 ==